=== PATIENT | male | born 1960 | race Caucasian/White ===

== ENCOUNTER 2016-07-31 11:03 | Inpatient (IN) ==
[~2016-07-31 11:03] MED LIST: *HR* Etomidate 20 MG/10 ML AMPUL IVP ONE; *HR* Rocuronium Bromide 100 MG/10 ML VIAL IVC ONE
[2016-07-31] MEDS ORDERED: Propofol 500 MG/50 ML INFUS..BTL ONE (11:12)
[2016-07-31] MEDS ORDERED: Levofloxacin 750 MG/150 ML 750 MG/150 ML BAG IVPB ONE (11:14)
[2016-07-31] MEDS ORDERED: methylPREDNISolone 125 MG/2 ML VIAL IV ONE (11:16)
[2016-07-31] MEDS ORDERED: Ipratropium/Albuterol Neb 3 ML IH ONE (11:16)
--- NOTE | 2016-07-31 11:20 | Emergency Department Note ---
Disposition Clinical Impression: Respiratory distress, COPD exacerbation, History of drug use Pneumonia Qualifiers: Pneumonia type: due to unspecified organism Laterality: left Lung location: lower lobe of lung Qualified Code(s): J18.9 - Pneumonia, unspecified organism Sepsis Qualifiers: Sepsis type: sepsis due to unspecified organism Qualified Code(s): A41.9 - Sepsis, unspecified organism Disposition: Admitted As Inpatient Condition: Serious Time of Disposition: 11:20 General Adult HPI - General Chief complaint: ED Shortness of Breath/Dyspnea Stated complaint: resp distress Time Seen by Provider: 07/31/16 11:06 Nursing Notes Reviewed: Yes Vital Signs Reviewed: Yes - History of Present Illness HPI Narrative: Patient presents with respiratory distress and unresponsive requiring intubation in the ED. - Related Data Home Medications Medication Instructions Recorded Confirmed Albuterol Sulfate [Proair Hfa] 2 puff IH Q4H PRN 07/31/16 07/31/16 Alprazolam [Xanax 1 MG Tablet] 1 mg PO TID 07/31/16 07/31/16 Amlodipine [Norvasc] 10 mg PO DAILY 07/31/16 07/31/16 Beclomethasone Diprop 40mcg [Qvar 1 puff IH BID 07/31/16 07/31/16 40 mcg] Gabapentin [Neurontin] 800 mg PO Q6H 07/31/16 07/31/16 Ibuprofen [Motrin] 400 mg PO BID 07/31/16 07/31/16 Ipratropium/Albuterol Neb [Duoneb] 3 ml IH Q6HR 07/31/16 07/31/16 Metoprolol XL (24 HR) Succ [Toprol 75 mg PO DAILY 07/31/16 07/31/16 XL] Omeprazole [PriLOSEC] 40 mg PO DAILY 07/31/16 07/31/16 Oxycodone HCl/Acetaminophen 1 tab PO Q6H PRN 07/31/16 07/31/16 [Percocet 10-325 mg Tablet] Roflumilast [Daliresp] 500 mcg PO DAILY 07/31/16 07/31/16 Sildenafil Citrate [Viagra] 50 - 100 mg PO AD PRN 07/31/16 07/31/16 Simvastatin [Zocor] 40 mg PO QPM 01/14/17 01/14/17 Allergies Allergy/AdvReac Type Severity Reaction Status Date / Time codeine AdvReac Itching Verified 05/26/16 17:44 Past Medical History - Past Medical History Medical history: Reports: hypertension Surgical history: Reports: other Psychiatric history: Reports: anxiety, depression - Social History Smoking Status: Never smoker Smokeless Tobacco Status: No Alcohol use: Reports: none Drug use: Reports: none Course Vital Signs Temperature 97.9 F 07/31/16 11:17 Pulse Rate 138 07/31/16 11:17 Respiratory Rate 16 07/31/16 11:17 Blood Pressure 152/119 07/31/16 11:17 O2 Sat by Pulse Oximetry 94 L 07/31/16 11:17 Temperature 97.5 F L 07/31/16 15:39 Pulse Rate 105 07/31/16 16:06 Respiratory Rate 20 07/31/16 16:06 Blood Pressure 84/70 07/31/16 16:06 O2 Sat by Pulse Oximetry 100 07/31/16 16:06 Oxygen Delivery Oxygen Delivery Ventilator Procedures - Intubation Time out performed: Yes sedative: Etomidate Mg Given: 20 paralytic: Rocuronium Mg Given: 70 Laryngoscope: Malcolm ET Tube Size: 7.5 ET Tube Uncuffed: No Tube Secured Depth (cm): 24 Tube Secured Location: lips Patient Tolerated Procedure: well, no complications Intubation Complications: none Additional Comments: Mallampati of 3. micrognathia Medical Decision Making - [facility] Narrative Medical decision making narrative: Mr. Young was brought into the emergency department unresponsive and in respiratory distress. Patient had a very low GCS requiring intubation. I performed intubation. This is a procedure note - Lab Data Result diagrams: 07/31/16 11:20 07/31/16 11:20 Lab Results 07/31/16 07/31/16 07/31/16 Range/Units 11:20 11:20 11:20 WBC 13.8 H (4.3-11.1) K/mcL RBC 4.45 (4.19-5.50) M/mcL Hgb 14.8 (12.9-16.9) g/dL Hct 44.4 (37.5-50.1) % MCV 99.8 (83.0-100.0) fL MCH 33.3 (28.0-33.3) pg MCHC 33.3 (31.6-35.5) g/dL RDW 11.9 (11.5-14.5) % Plt Count 291 (140-400) K/mcL MPV 8.7 L (9.4-12.4) fL Immature Gran % 0.4 (0-4) % Seg Neutrophils % 33.7 % Lymphocytes % 49.1 % Monocytes % 8.0 % Eosinophils % 7.9 % Basophils % 0.9 % Neutrophils # 4.6 (1.6-8.9) K/mcL Lymphocytes # 6.8 H (0.6-4.6) K/mcL Monocytes # 1.1 (0.0-1.3) K/mcL Eosinophils # 1.1 H (0.0-0.6) K/mcL Basophils # 0.1 (0.0-0.2) K/mcL PT 10.4 (9.4-12.1) Seconds INR 1.0 APTT 30.1 (26.0-36.0) Seconds ABG pH (7.32-7.45) pH Units ABG pCO2 (35-45) mmHg ABG pO2 (85-104) mmHg ABG HCO3 (21-27) mEQ/L ABG Total CO2 (20-26) mEq/L ABG O2 Saturation (95-98) % ABG Base Excess (-2.0 to 3.0) mEq/L Blood Gas Modality Inspired O2 % Sodium 141 (136-145) mEq/L Potassium 4.1 (3.5-4.5) mEq/L Chloride 108 (98-109) mEq/L Carbon Dioxide 26 (19-29) mEq/L BUN 9 (8-26) mg/dL Creatinine 1.26 H (0.72-1.25) mg/dL Est GFR ( Amer) > 60 (> 60) Est GFR (Non-Af Amer) 60 (> 60) BUN/Creatinine Ratio 7 (6-26) Glucose 258 H (70-99) mg/dL POC Glucose (58-89) Calculated Osmolality 300 (280-300) Lactic Acid (0.5-2.2) mmol/L Calcium 8.3 L (8.6-10.8) mg/dL Phosphorus 7.1 H (2.3-4.7) mg/dL Magnesium 2.7 H (1.6-2.6) mg/dL Total Bilirubin 0.5 (0.2-1.2) mg/dL Direct Bilirubin 0.2 (0.0-0.5) mg/dL Indirect Bilirubin 0.3 (0.0-1.2) mg/dL AST 13 (5-34) Units/L ALT 10 (0-55) Units/L Alkaline Phosphatase 61 (38-126) Units/L Troponin I (0-0.03) ng/mL B-Natriuretic Peptide (0-100) pg/mL Serum Total Protein 6.4 (6.0-8.3) g/dL Albumin 3.5 (3.5-5.0) g/dL Globulin 2.9 (2.4-3.5) g/dL Albumin/Globulin Ratio 1.2 (1.1-2.2) Urine Color (Yellow) Urine Clarity (Clear) Urine pH (5.0-8.0) pH Units Ur Specific Simon (1.010-1.025) Urine Protein (Neg-Trace) mg/dL Urine Glucose (UA) (Normal) mg/dL Urine Ketones (Negative) mg/dL Urine Blood (Negative) Urine Nitrite (Negative) Urine Bilirubin (Negative) Urine Urobilinogen (Normal) mg/dL Ur Leukocyte Esterase (Negative) Ur Culture Indicated? (NO) 07/31/16 07/31/16 07/31/16 Range/Units 11:20 11:20 11:22 WBC (4.3-11.1) K/mcL RBC (4.19-5.50) M/mcL Hgb (12.9-16.9) g/dL Hct (37.5-50.1) % MCV (83.0-100.0) fL MCH (28.0-33.3) pg MCHC (31.6-35.5) g/dL RDW (11.5-14.5) % Plt Count (140-400) K/mcL MPV (9.4-12.4) fL Immature Gran % (0-4) % Seg Neutrophils % % Lymphocytes % % Monocytes % % Eosinophils % % Basophils % % Neutrophils # (1.6-8.9) K/mcL Lymphocytes # (0.6-4.6) K/mcL Monocytes # (0.0-1.3) K/mcL Eosinophils # (0.0-0.6) K/mcL Basophils # (0.0-0.2) K/mcL PT (9.4-12.1) Seconds INR APTT (26.0-36.0) Seconds ABG pH (7.32-7.45) pH Units ABG pCO2 (35-45) mmHg ABG pO2 (85-104) mmHg ABG HCO3 (21-27) mEQ/L ABG Total CO2 (20-26) mEq/L ABG O2 Saturation (95-98) % ABG Base Excess (-2.0 to 3.0) mEq/L Blood Gas Modality Inspired O2 % Sodium (136-145) mEq/L Potassium (3.5-4.5) mEq/L Chloride (98-109) mEq/L Carbon Dioxide (19-29) mEq/L BUN (8-26) mg/dL Creatinine (0.72-1.25) mg/dL Est GFR ( Amer) (> 60) Est GFR (Non-Af Amer) (> 60) BUN/Creatinine Ratio (6-26) Glucose (70-99) mg/dL POC Glucose (58-89) Calculated Osmolality (280-300) Lactic Acid 3.0 H (0.5-2.2) mmol/L Calcium (8.6-10.8) mg/dL Phosphorus (2.3-4.7) mg/dL Magnesium (1.6-2.6) mg/dL Total Bilirubin (0.2-1.2) mg/dL Direct Bilirubin (0.0-0.5) mg/dL Indirect Bilirubin (0.0-1.2) mg/dL AST (5-34) Units/L ALT (0-55) Units/L Alkaline Phosphatase (38-126) Units/L Troponin I 0.03 (0-0.03) ng/mL B-Natriuretic Peptide 247 H (0-100) pg/mL Serum Total Protein (6.0-8.3) g/dL Albumin (3.5-5.0) g/dL Globulin (2.4-3.5) g/dL Albumin/Globulin Ratio (1.1-2.2) Urine Color (Yellow) Urine Clarity (Clear) Urine pH (5.0-8.0) pH Units Ur Specific Simon (1.010-1.025) Urine Protein (Neg-Trace) mg/dL Urine Glucose (UA) (Normal) mg/dL Urine Ketones (Negative) mg/dL Urine Blood (Negative) Urine Nitrite (Negative) Urine Bilirubin (Negative) Urine Urobilinogen (Normal) mg/dL Ur Leukocyte Esterase (Negative) Ur Culture Indicated? (NO) 07/31/16 07/31/16 07/31/16 Range/Units 11:25 12:00 12:20 WBC (4.3-11.1) K/mcL RBC (4.19-5.50) M/mcL Hgb (12.9-16.9) g/dL Hct (37.5-50.1) % MCV (83.0-100.0) fL MCH (28.0-33.3) pg MCHC (31.6-35.5) g/dL RDW (11.5-14.5) % Plt Count (140-400) K/mcL MPV (9.4-12.4) fL Immature Gran % (0-4) % Seg Neutrophils % % Lymphocytes % % Monocytes % % Eosinophils % % Basophils % % Neutrophils # (1.6-8.9) K/mcL Lymphocytes # (0.6-4.6) K/mcL Monocytes # (0.0-1.3) K/mcL Eosinophils # (0.0-0.6) K/mcL Basophils # (0.0-0.2) K/mcL PT (9.4-12.1) Seconds INR APTT (26.0-36.0) Seconds ABG pH 7.09 L* 7.16 L* (7.32-7.45) pH Units ABG pCO2 92 H* 75 H* (35-45) mmHg ABG pO2 350 H 303 H (85-104) mmHg ABG HCO3 27.9 H 26.7 (21-27) mEQ/L ABG Total CO2 30.7 H 29.0 H (20-26) mEq/L ABG O2 Saturation 100 H 100 H (95-98) % ABG Base Excess -4.5 L -3.3 L (-2.0 to 3.0) mEq/L Blood Gas Modality ASSIST CONTROL VENT Inspired O2 70 70 % Sodium (136-145) mEq/L Potassium (3.5-4.5) mEq/L Chloride (98-109) mEq/L Carbon Dioxide (19-29) mEq/L BUN (8-26) mg/dL Creatinine (0.72-1.25) mg/dL Est GFR ( Amer) (> 60) Est GFR (Non-Af Amer) (> 60) BUN/Creatinine Ratio (6-26) Glucose (70-99) mg/dL POC Glucose (58-89) Calculated Osmolality (280-300) Lactic Acid (0.5-2.2) mmol/L Calcium (8.6-10.8) mg/dL Phosphorus (2.3-4.7) mg/dL Magnesium (1.6-2.6) mg/dL Total Bilirubin (0.2-1.2) mg/dL Direct Bilirubin (0.0-0.5) mg/dL Indirect Bilirubin (0.0-1.2) mg/dL AST (5-34) Units/L ALT (0-55) Units/L Alkaline Phosphatase (38-126) Units/L Troponin I (0-0.03) ng/mL B-Natriuretic Peptide (0-100) pg/mL Serum Total Protein (6.0-8.3) g/dL Albumin (3.5-5.0) g/dL Globulin (2.4-3.5) g/dL Albumin/Globulin Ratio (1.1-2.2) Urine Color Yellow (Yellow) Urine Clarity Clear (Clear) Urine pH 7.0 (5.0-8.0) pH Units Ur Specific Simon 1.010 (1.010-1.025) Urine Protein Negative (Neg-Trace) mg/dL Urine Glucose (UA) Normal (Normal) mg/dL Urine Ketones Negative (Negative) mg/dL Urine Blood Negative (Negative) Urine Nitrite Negative (Negative) Urine Bilirubin Negative (Negative) Urine Urobilinogen Normal (Normal) mg/dL Ur Leukocyte Esterase Negative (Negative) Ur Culture Indicated? NO (NO) 07/31/16 07/31/16 07/31/16 Range/Units 13:25 13:56 14:44 WBC (4.3-11.1) K/mcL RBC (4.19-5.50) M/mcL Hgb (12.9-16.9) g/dL Hct (37.5-50.1) % MCV (83.0-100.0) fL MCH (28.0-33.3) pg MCHC (31.6-35.5) g/dL RDW (11.5-14.5) % Plt Count (140-400) K/mcL MPV (9.4-12.4) fL Immature Gran % (0-4) % Seg Neutrophils % % Lymphocytes % % Monocytes % % Eosinophils % % Basophils % % Neutrophils # (1.6-8.9) K/mcL Lymphocytes # (0.6-4.6) K/mcL Monocytes # (0.0-1.3) K/mcL Eosinophils # (0.0-0.6) K/mcL Basophils # (0.0-0.2) K/mcL PT (9.4-12.1) Seconds INR APTT (26.0-36.0) Seconds ABG pH 7.27 L (7.32-7.45) pH Units ABG pCO2 51 H D (35-45) mmHg ABG pO2 141 H (85-104) mmHg ABG HCO3 23.4 (21-27) mEQ/L ABG Total CO2 25.0 (20-26) mEq/L ABG O2 Saturation 99 H (95-98) % ABG Base Excess -4.0 L (-2.0 to 3.0) mEq/L Blood Gas Modality ASSIST CONTROL Inspired O2 30 % Sodium (136-145) mEq/L Potassium (3.5-4.5) mEq/L Chloride (98-109) mEq/L Carbon Dioxide (19-29) mEq/L BUN (8-26) mg/dL Creatinine (0.72-1.25) mg/dL Est GFR ( Amer) (> 60) Est GFR (Non-Af Amer) (> 60) BUN/Creatinine Ratio (6-26) Glucose (70-99) mg/dL POC Glucose 157 H (58-89) Calculated Osmolality (280-300) Lactic Acid 1.2 (0.5-2.2) mmol/L Calcium (8.6-10.8) mg/dL Phosphorus (2.3-4.7) mg/dL Magnesium (1.6-2.6) mg/dL Total Bilirubin (0.2-1.2) mg/dL Direct Bilirubin (0.0-0.5) mg/dL Indirect Bilirubin (0.0-1.2) mg/dL AST (5-34) Units/L ALT (0-55) Units/L Alkaline Phosphatase (38-126) Units/L Troponin I (0-0.03) ng/mL B-Natriuretic Peptide (0-100) pg/mL Serum Total Protein (6.0-8.3) g/dL Albumin (3.5-5.0) g/dL Globulin (2.4-3.5) g/dL Albumin/Globulin Ratio (1.1-2.2) Urine Color (Yellow) Urine Clarity (Clear) Urine pH (5.0-8.0) pH Units Ur Specific Simon (1.010-1.025) Urine Protein (Neg-Trace) mg/dL Urine Glucose (UA) (Normal) mg/dL Urine Ketones (Negative) mg/dL Urine Blood (Negative) Urine Nitrite (Negative) Urine Bilirubin (Negative) Urine Urobilinogen (Normal) mg/dL Ur Leukocyte Esterase (Negative) Ur Culture Indicated? (NO) Attestation Statement - Attestation Attestation: I examined this patient and my medical decision-making was reviewed with the ENGAGEMENT LIAISON/PA/Advanced Practice Nurse/Resident Physician. I agree with the documented findings, disposition and treatment plan as described except to the extent set forth below. Patient presents to the emergency department with respiratory distress. History is provided per EMS. They state they were called for difficulty in breathing. They found her with altered mental status breathing rapidly and wheezing. He was given a nebulizer treatment in route had an IV placed. On arrival here he is altered. Minimally combative waving his arms as were trying to place IVs and examined him. Lungs with diffuse expiratory wheezing. Satting in the low 90s on a nebulizer treatment. Abdomen soft. No obvious signs of trauma. Plan. The patient was in respiratory distress with altered mental status. He was intubated by Dr. Diaz. We will perform septic workup. CT head and chest pending. Admit to ICU.
--- NOTE | 2016-07-31 11:21 | Emergency Department Note ---
Disposition Clinical Impression: Respiratory distress, COPD exacerbation, History of drug use Sepsis Qualifiers: Sepsis type: sepsis due to unspecified organism Qualified Code(s): A41.9 - Sepsis, unspecified organism Pneumonia Qualifiers: Pneumonia type: due to unspecified organism Laterality: left Lung location: lower lobe of lung Qualified Code(s): J18.9 - Pneumonia, unspecified organism Disposition: Admitted As Inpatient Condition: Serious SOB HPI - General Chief Complaint: ED Shortness of Breath/Dyspnea Stated Complaint: resp distress Time Seen by Provider: 07/31/16 11:06 Source: patient, EMS Mode of arrival: EMS Limitations: altered mental status Nursing Notes Reviewed: Yes Vital Signs Reviewed: Yes - History of Present Illness 55-year-old male history of COPD presents for evaluation respiratory distress. Patient presented via EMS. EMS reported the patient has been hypoxic at home. Patient's also had decreased responsiveness. Report was that the patient's been having increasing shortness of breath overnight. Constantly using his albuterol. Patient's GCS was low and concerning for airway protection. Patient was not responsive to verbal or painful stimuli. Patient's pupils were fixed and dilated. - Related Data Home Medications Medication Instructions Recorded Confirmed Albuterol Sulfate [Proair Hfa] 2 puff IH Q4H PRN 07/31/16 07/31/16 Alprazolam [Xanax 1 MG Tablet] 1 mg PO TID 07/31/16 07/31/16 Amlodipine [Norvasc] 10 mg PO DAILY 07/31/16 07/31/16 Beclomethasone Diprop 40mcg [Qvar 1 puff IH BID 07/31/16 07/31/16 40 mcg] Gabapentin [Neurontin] 800 mg PO Q6H 07/31/16 07/31/16 Ibuprofen [Motrin] 400 mg PO BID 07/31/16 07/31/16 Ipratropium/Albuterol Neb [Duoneb] 3 ml IH Q6HR 07/31/16 07/31/16 Metoprolol XL (24 HR) Succ [Toprol 75 mg PO DAILY 07/31/16 07/31/16 XL] Omeprazole [PriLOSEC] 40 mg PO DAILY 07/31/16 07/31/16 Oxycodone HCl/Acetaminophen 1 tab PO Q6H PRN 07/31/16 07/31/16 [Percocet 10-325 mg Tablet] Roflumilast [Daliresp] 500 mcg PO DAILY 07/31/16 07/31/16 Sildenafil Citrate [Viagra] 50 - 100 mg PO AD PRN 07/31/16 07/31/16 Simvastatin [Zocor] 40 mg PO QPM 07/31/16 07/31/16 Allergies Allergy/AdvReac Type Severity Reaction Status Date / Time codeine AdvReac Itching Verified 05/26/16 17:44 Limitations: ROS unobtainable due to patients medical condition Past Medical History - Past Medical History Medical history: Reports: hypertension Surgical history: Reports: other Psychiatric history: Reports: anxiety, depression - Social History Smoking Status: Never smoker Smokeless Tobacco Status: No Alcohol use: Reports: none Drug use: Reports: none Physical Exam - General Limitations: other General appearance: lethargic, in distress, other (Decreased responsiveness) - Head Head exam: normocephalic, normal inspection - Eye Eye exam: Present: normal appearance, mydriasis (fixed) - ENT ENT exam: normal exam, mucous membranes moist - Neck Neck exam: Present: normal inspection, trachea midline - Chest Chest inspection: Present: normal inspection, symmetric chest wall rise, other ( Tachypnea). Absent: tenderness - Respiratory Respiratory exam: Present: respiratory distress, accessory muscle use, other ( Decreased right-sided breath sounds with bilateral diffuse rhonchi) - Cardiovascular Cardiovascular exam: Present: normal rhythm, tachycardia, +S1, +S2 - Abdominal Exam Abdominal exam: Present: soft, Non-Tender. Absent: distention, guarding, rebound - Extremities Exam Extremities exam: Present: normal inspection. Absent: pedal edema - Expanded Upper Extremity Exam Shoulder exam: Present: normal inspection Arm exam: Present: normal inspection Elbow exam: Present: normal inspection Forearm/Wrist exam: Present: normal inspection Hand exam: Present: normal inspection Vascular exam: Normal: capillary refill, radial pulse - Expanded Lower Extremity Exam Knee exam: Present: normal inspection Lower leg exam: Present: normal inspection Ankle exam: Present: normal inspection Foot/toe exam: Present: normal inspection - Back Exam Back exam: Present: normal inspection - Neurological Exam Neurological exam: Present: other (Decreased responsiveness, moving all extremities. ) - Skin Skin exam: Present: warm, intact, normal color, diaphoresis Course Course Narrative: Patient seen and examined. Patient presents with respiratory distress. Patient 's GCS is low concerning for airway protection. Possible aspiration. Patient does have a history of COPD. Family not at bedside to provide additional history. Patient was intubated concerns of airway protection. Intubation was performed by Dr. Diaz. Patient's concerning history for sepsis likely source of infection the lungs. Patient's hypertensive and tachycardic. Postintubation meds include propofol sedation. Bedside ultrasound shows a moderately dilated right ventricle. With no gross wall motion abnormalities. - Reevaluation(s) Reevaluation #1: Spoke with the patient's brother. Patient's brother states that he does have a history of COPD not on any oxygen at home. Notes that he has been having difficulty with breathing in the past. But denies any recent hospitalizations. States that he does take extensive pain medications. Of note, was noted the patient had benzodiazepines prescribed in his pocket. Time: 11:46 Reevaluation #2: Patient's lab work shows an elevated white count with lactic acid. Patient is awake with escalating doses of propofol. will address with versed. Time: 12:20 Reevaluation #3: Patient's sister at bedside. Patient's sister is power of commercial real estate attorney. States that he went to urgent care approximately a week ago with concerns of problems breathing. Unclear if the patient had any antibiotics prescribed at that time. Due to family on plan of care. All questions were answered. Time: 12:35 Additional Reevaluation(s): 1242: Patient's repeat ABG shows improving acidosis with a CO2 of 75. Would likely increase the patient's TV to 500. 1408: Patient CTA of the chest reviewed after the patient was already in route to ICU. Vital Signs Respiratory Rate 16 07/31/16 11:09 Blood Pressure 131/103 07/31/16 11:09 O2 Sat by Pulse Oximetry 132 H 07/31/16 11:09 Temperature 97.5 F L 07/31/16 15:39 Pulse Rate 106 07/31/16 17:53 Respiratory Rate 18 07/31/16 17:53 Blood Pressure 97/78 07/31/16 17:53 O2 Sat by Pulse Oximetry 100 07/31/16 17:53 Oxygen Delivery Oxygen Delivery Ventilator Shortness of Breath/Dyspnea - MDM Narrative Medical decision making narrative: 55-year-old male presents via EMS for concerns of decreased responsiveness, altered mental status, history of COPD and hypoxia. Was found at his home with his sister. Sister called EMS. Patient was found hypoxic on room air with saturations 80%. Patient's oxygenation improved with [id number] via EMS. Patient was given albuterol nebs via EMS. Due to the concern of patient's decreased mental status and airway protection. The patient was intubated in the emergency department. Intubation was performed by Dr. Diaz. Differential diagnosis initially was pneumonia, COPD exacerbation, PE, ACS. No specific history prior to the event was able to be obtained at bedside. Family arrived later on appeared to be more distant relationship with the patient. Family has been battling breathing issues over the past week. States that he was using his albuterol more more recently. Patient's also found to have Adipex in a pill bottle. Patient's found to be tachycardic and hypertensive likely related to medications and infection. Patient did have an elevated lactate with leukocytosis concerns for sepsis and sepsis protocol was ordered with IV fluid hydration, antibiotics, cultures. Possible source of infection the lungs. Postintubation sedation cannot be completely achieved with propofol initially and was needed versed and fentanyl. At the patient does have an extensive drug history with chronic pain management as well as benzodiazepines. This information was confirmed by the patient bedside. CTA of the chest as well as a head CT was ordered due to the patient's declining mental status. - Lab Data Lab results reviewed: Yes I reviewed the patient's lab results. Result diagrams: 07/31/16 11:20 07/31/16 11:20 Lab Results 07/31/16 07/31/16 07/31/16 Range/Units 11:20 11:20 11:20 WBC 13.8 H (4.3-11.1) K/mcL RBC 4.45 (4.19-5.50) M/mcL Hgb 14.8 (12.9-16.9) g/dL Hct 44.4 (37.5-50.1) % MCV 99.8 (83.0-100.0) fL MCH 33.3 (28.0-33.3) pg MCHC 33.3 (31.6-35.5) g/dL RDW 11.9 (11.5-14.5) % Plt Count 291 (140-400) K/mcL MPV 8.7 L (9.4-12.4) fL Immature Gran % 0.4 (0-4) % Seg Neutrophils % 33.7 % Lymphocytes % 49.1 % Monocytes % 8.0 % Eosinophils % 7.9 % Basophils % 0.9 % Neutrophils # 4.6 (1.6-8.9) K/mcL Lymphocytes # 6.8 H (0.6-4.6) K/mcL Monocytes # 1.1 (0.0-1.3) K/mcL Eosinophils # 1.1 H (0.0-0.6) K/mcL Basophils # 0.1 (0.0-0.2) K/mcL PT 10.4 (9.4-12.1) Seconds INR 1.0 APTT 30.1 (26.0-36.0) Seconds ABG pH (7.32-7.45) pH Units ABG pCO2 (35-45) mmHg ABG pO2 (85-104) mmHg ABG HCO3 (21-27) mEQ/L ABG Total CO2 (20-26) mEq/L ABG O2 Saturation (95-98) % ABG Base Excess (-2.0 to 3.0) mEq/L Blood Gas Modality Inspired O2 % Sodium 141 (136-145) mEq/L Potassium 4.1 (3.5-4.5) mEq/L Chloride 108 (98-109) mEq/L Carbon Dioxide 26 (19-29) mEq/L BUN 9 (8-26) mg/dL Creatinine 1.26 H (0.72-1.25) mg/dL Est GFR ( Amer) > 60 (> 60) Est GFR (Non-Af Amer) 60 (> 60) BUN/Creatinine Ratio 7 (6-26) Glucose 258 H (70-99) mg/dL Calculated Osmolality 300 (280-300) Lactic Acid (0.5-2.2) mmol/L Calcium 8.3 L (8.6-10.8) mg/dL Phosphorus 7.1 H (2.3-4.7) mg/dL Magnesium 2.7 H (1.6-2.6) mg/dL Total Bilirubin 0.5 (0.2-1.2) mg/dL Direct Bilirubin 0.2 (0.0-0.5) mg/dL Indirect Bilirubin 0.3 (0.0-1.2) mg/dL AST 13 (5-34) Units/L ALT 10 (0-55) Units/L Alkaline Phosphatase 61 (38-126) Units/L Troponin I (0-0.03) ng/mL B-Natriuretic Peptide (0-100) pg/mL Serum Total Protein 6.4 (6.0-8.3) g/dL Albumin 3.5 (3.5-5.0) g/dL Globulin 2.9 (2.4-3.5) g/dL Albumin/Globulin Ratio 1.2 (1.1-2.2) Urine Color (Yellow) Urine Clarity (Clear) Urine pH (5.0-8.0) pH Units Ur Specific [place] (1.010-1.025) Urine Protein (Neg-Trace) mg/dL Urine Glucose (UA) (Normal) mg/dL Urine Ketones (Negative) mg/dL Urine Blood (Negative) Urine Nitrite (Negative) Urine Bilirubin (Negative) Urine Urobilinogen (Normal) mg/dL Ur Leukocyte Esterase (Negative) Ur Culture Indicated? (NO) 07/31/16 07/31/16 07/31/16 Range/Units 11:20 11:20 11:22 WBC (4.3-11.1) K/mcL RBC (4.19-5.50) M/mcL Hgb (12.9-16.9) g/dL Hct (37.5-50.1) % MCV (83.0-100.0) fL MCH (28.0-33.3) pg MCHC (31.6-35.5) g/dL RDW (11.5-14.5) % Plt Count (140-400) K/mcL MPV (9.4-12.4) fL Immature Gran % (0-4) % Seg Neutrophils % % Lymphocytes % % Monocytes % % Eosinophils % % Basophils % % Neutrophils # (1.6-8.9) K/mcL Lymphocytes # (0.6-4.6) K/mcL Monocytes # (0.0-1.3) K/mcL Eosinophils # (0.0-0.6) K/mcL Basophils # (0.0-0.2) K/mcL PT (9.4-12.1) Seconds INR APTT (26.0-36.0) Seconds ABG pH (7.32-7.45) pH Units ABG pCO2 (35-45) mmHg ABG pO2 (85-104) mmHg ABG HCO3 (21-27) mEQ/L ABG Total CO2 (20-26) mEq/L ABG O2 Saturation (95-98) % ABG Base Excess (-2.0 to 3.0) mEq/L Blood Gas Modality Inspired O2 % Sodium (136-145) mEq/L Potassium (3.5-4.5) mEq/L Chloride (98-109) mEq/L Carbon Dioxide (19-29) mEq/L BUN (8-26) mg/dL Creatinine (0.72-1.25) mg/dL Est GFR ( Amer) (> 60) Est GFR (Non-Af Amer) (> 60) BUN/Creatinine Ratio (6-26) Glucose (70-99) mg/dL Calculated Osmolality (280-300) Lactic Acid 3.0 H (0.5-2.2) mmol/L Calcium (8.6-10.8) mg/dL Phosphorus (2.3-4.7) mg/dL Magnesium (1.6-2.6) mg/dL Total Bilirubin (0.2-1.2) mg/dL Direct Bilirubin (0.0-0.5) mg/dL Indirect Bilirubin (0.0-1.2) mg/dL AST (5-34) Units/L ALT (0-55) Units/L Alkaline Phosphatase (38-126) Units/L Troponin I 0.03 (0-0.03) ng/mL B-Natriuretic Peptide 247 H (0-100) pg/mL Serum Total Protein (6.0-8.3) g/dL Albumin (3.5-5.0) g/dL Globulin (2.4-3.5) g/dL Albumin/Globulin Ratio (1.1-2.2) Urine Color (Yellow) Urine Clarity (Clear) Urine pH (5.0-8.0) pH Units Ur Specific [place] (1.010-1.025) Urine Protein (Neg-Trace) mg/dL Urine Glucose (UA) (Normal) mg/dL Urine Ketones (Negative) mg/dL Urine Blood (Negative) Urine Nitrite (Negative) Urine Bilirubin (Negative) Urine Urobilinogen (Normal) mg/dL Ur Leukocyte Esterase (Negative) Ur Culture Indicated? (NO) 07/31/16 07/31/16 07/31/16 Range/Units 11:25 12:00 12:20 WBC (4.3-11.1) K/mcL RBC (4.19-5.50) M/mcL Hgb (12.9-16.9) g/dL Hct (37.5-50.1) % MCV (83.0-100.0) fL MCH (28.0-33.3) pg MCHC (31.6-35.5) g/dL RDW (11.5-14.5) % Plt Count (140-400) K/mcL MPV (9.4-12.4) fL Immature Gran % (0-4) % Seg Neutrophils % % Lymphocytes % % Monocytes % % Eosinophils % % Basophils % % Neutrophils # (1.6-8.9) K/mcL Lymphocytes # (0.6-4.6) K/mcL Monocytes # (0.0-1.3) K/mcL Eosinophils # (0.0-0.6) K/mcL Basophils # (0.0-0.2) K/mcL PT (9.4-12.1) Seconds INR APTT (26.0-36.0) Seconds ABG pH 7.09 L* 7.16 L* (7.32-7.45) pH Units ABG pCO2 92 H* 75 H* (35-45) mmHg ABG pO2 350 H 303 H (85-104) mmHg ABG HCO3 27.9 H 26.7 (21-27) mEQ/L ABG Total CO2 30.7 H 29.0 H (20-26) mEq/L ABG O2 Saturation 100 H 100 H (95-98) % ABG Base Excess -4.5 L -3.3 L (-2.0 to 3.0) mEq/L Blood Gas Modality ASSIST CONTROL VENT Inspired O2 70 70 % Sodium (136-145) mEq/L Potassium (3.5-4.5) mEq/L Chloride (98-109) mEq/L Carbon Dioxide (19-29) mEq/L BUN (8-26) mg/dL Creatinine (0.72-1.25) mg/dL Est GFR ( Amer) (> 60) Est GFR (Non-Af Amer) (> 60) BUN/Creatinine Ratio (6-26) Glucose (70-99) mg/dL Calculated Osmolality (280-300) Lactic Acid (0.5-2.2) mmol/L Calcium (8.6-10.8) mg/dL Phosphorus (2.3-4.7) mg/dL Magnesium (1.6-2.6) mg/dL Total Bilirubin (0.2-1.2) mg/dL Direct Bilirubin (0.0-0.5) mg/dL Indirect Bilirubin (0.0-1.2) mg/dL AST (5-34) Units/L ALT (0-55) Units/L Alkaline Phosphatase (38-126) Units/L Troponin I (0-0.03) ng/mL B-Natriuretic Peptide (0-100) pg/mL Serum Total Protein (6.0-8.3) g/dL Albumin (3.5-5.0) g/dL Globulin (2.4-3.5) g/dL Albumin/Globulin Ratio (1.1-2.2) Urine Color Yellow (Yellow) Urine Clarity Clear (Clear) Urine pH 7.0 (5.0-8.0) pH Units Ur Specific [place] 1.010 (1.010-1.025) Urine Protein Negative (Neg-Trace) mg/dL Urine Glucose (UA) Normal (Normal) mg/dL Urine Ketones Negative (Negative) mg/dL Urine Blood Negative (Negative) Urine Nitrite Negative (Negative) Urine Bilirubin Negative (Negative) Urine Urobilinogen Normal (Normal) mg/dL Ur Leukocyte Esterase Negative (Negative) Ur Culture Indicated? NO (NO) - Radiology Data Radiology results reviewed: Yes I reviewed the patient's radiology results. - EKG Data EKG attestation: Yes I reviewed and interpreted this EKG. EKG shows normal: Reports: sinus rhythm Rate: Reports: normal Rhythm: Reports: NSR [place]/QRS: Reports: normal When compared to previous EKG there are: changes noted (Tachycardia from 2015) Interpretation: Reports: nonspecific ST-T wave changes Critical Care Time Critical Care Time: Yes Total Critical Care Time: 40 Attestation: Critical care performed: Time is exclusive of separately billable procedures. Time includes: direct patient care, patient reassessment, coordination of patient care, interpretation of data (laboratory data, radiology data, and respiratory data), review of patient's medical records, medical consultation and documentation of patient care. Procedures included in critical care time: Procedures excluded from critical care time: Karen - Karen Situation: Demographics, MOA Background: Presenting Complaint Assessment: Vital Signs, Patient/Family Expectation Recommendation: Barrier(s) to disposition, Recommendation based on pending studies, treatments, or consults Karen Report Given to: Dr. Conor Jones Repor Time: 13:03
[2016-07-31] MEDS ORDERED: Propofol 500 MG/50 ML INFUS..BTL IVC SCH (11:30)
[2016-07-31 11:31] LABS: ABG Base Excess -4.5 mEq/L (-2.0 to 3.0); ABG HCO3 27.9 mEQ/L (21-27); ABG Oxygen Saturation 100 % (95-98); ABG PO2 350 mmHg (85-104); ABG TCO2 30.7 mEq/L (20-26)
[2016-07-31 11:32] LABS: Basophils # 0.1 K/mcL (0.0-0.2); Basophils % 0.9 %; Eosinophils # 1.1 K/mcL (0.0-0.6); Eosinophils % 7.9 %; Hematocrit 44.4 % (37.5-50.1); Hemoglobin 14.8 g/dL (12.9-16.9); Immature Granulocytes % 0.4 % (0-4); Lymphocytes # 6.8 K/mcL (0.6-4.6); Lymphocytes % 49.1 %; Mean Corpuscular HGB Conc 33.3 g/dL (31.6-35.5); Mean Corpuscular Hemoglobin 33.3 pg (28.0-33.3); Mean Corpuscular Volume 99.8 fL (83.0-100.0); Mean Platelet Volume 8.7 fL (9.4-12.4); Monocytes # 1.1 K/mcL (0.0-1.3); Neutrophils # 4.6 K/mcL (1.6-8.9); Platelet Count 291 K/mcL (140-400); Red Blood Count 4.45 M/mcL (4.19-5.50); Red Cell Distribution Width 11.9 % (11.5-14.5); Segmented Neutrophils % 33.7 %
[2016-07-31 11:35] LABS: ABG PCO2 92 mmHg (35-45); ABG PH 7.09 pH Units (7.32-7.45)
[2016-07-31 11:36] LABS: Blood Gas FiO2 70 %
[2016-07-31] MEDS: 0.9 % Sodium Chloride 1,000 ML IVC SCH ×2 (11:37→11:46)
[2016-07-31 11:42] LABS: Prothrombin Time 10.4 Seconds (9.4-12.1)
[2016-07-31 11:44] LABS: Activated Partial Thrombo Time 30.1 Seconds (26.0-36.0)
[2016-07-31 11:46] LABS: Alanine Aminotransferase 10 Units/L (0-55); Albumin 3.5 g/dL (3.5-5.0); Albumin/Globulin Ratio 1.2 (1.1-2.2); Alkaline Phosphatase 61 Units/L (38-126); Aspartate Amino Transferase 13 Units/L (5-34); BUN/Creatinine Ratio 7 (6-26); Bilirubin,Direct 0.2 mg/dL (0.0-0.5); Bilirubin,Indirect 0.3 mg/dL (0.0-1.2); Bilirubin,Total 0.5 mg/dL (0.2-1.2); Blood Urea Nitrogen 9 mg/dL (8-26); Calcium 8.3 mg/dL (8.6-10.8); Carbon Dioxide 26 mEq/L (19-29); Chloride 108 mEq/L (98-109); Globulin 2.9 g/dL (2.4-3.5); Glucose 258 mg/dL (70-99); Magnesium 2.7 mg/dL (1.6-2.6); Osmolality,Calculated 300 (280-300); Phosphorous 7.1 mg/dL (2.3-4.7); Potassium 4.1 mEq/L (3.5-4.5); Sodium 141 mEq/L (136-145); Total Protein 6.4 g/dL (6.0-8.3); eGFR For African Americans > 60 (> 60); eGFR For Non-African Americans 60 (> 60)
[2016-07-31] MEDS ORDERED: *HR* FentaNYL (PF) 100 MCG/2 ML VIAL IVP ONE (12:01)
[2016-07-31 12:14] LABS: Bilirubin,Urine Negative (Negative); Blood,Urine Negative (Negative); Clarity,Urine Clear (Clear); Color,Urine Yellow (Yellow); Glucose,Urine (UA) Normal (Normal); Ketones,Urine Negative (Negative); Leukocyte Esterase,Urine Negative (Negative); Nitrite,Urine Negative (Negative); Protein,Urine Negative (Neg-Trace); Urobilinogen,Urine Normal (Normal)
[2016-07-31] MEDS ORDERED: *HR* Vecuronium 10 MG VIAL IVP ONE (12:20)
[2016-07-31] MEDS ORDERED: *HR* Midazolam HCl 2 MG/2 ML VIAL IVP ONE (12:20)
[2016-07-31] MEDS ORDERED: *HR* Midazolam HCl 2 MG/2 ML VIAL ONE (12:26)
[2016-07-31 12:35] LABS: ABG Base Excess -3.3 mEq/L (-2.0 to 3.0); ABG HCO3 26.7 mEQ/L (21-27); ABG Oxygen Saturation 100 % (95-98); ABG PO2 303 mmHg (85-104)
[2016-07-31 12:36] LABS: Blood Gas FiO2 70 %
[2016-07-31 12:37] LABS: ABG PCO2 75 mmHg (35-45); ABG PH 7.16 pH Units (7.32-7.45)
[2016-07-31] MEDS ORDERED: 0.9 % Sodium Chloride 1,000 ML IV ONE (13:17)
[2016-07-31] MEDS ORDERED: Acetaminophen 325 MG TABLET PO PRN (14:05)
[2016-07-31] MEDS ORDERED: Naloxone 0.4 MG/ML INJ IVP PRN (14:05)
[2016-07-31] MEDS ORDERED: Ipratropium/Albuterol Neb 3 ML ONE (14:06)
[2016-07-31] MEDS ORDERED: Ipratropium/Albuterol Neb 3 ML IH SCH ×2 (14:15→16:00)
[2016-07-31] MEDS ORDERED: Ringers Solution, Lactated 1,000 ML IVC ONE (14:16)
--- NOTE | 2016-07-31 14:54 | Pulmonology History & Physical ---
Date of Encounter: 07/31/16 Time of Encounter: 14:51 Assessment and Plan (1) Acute respiratory failure with hypoxia and hypercapnia Current visit: Yes Status: Acute I spent 40min of Critical Care time with this patient. It involved decision making of high complexity to assess, manipulate, and support vital organ system failure and/or to prevent further life threatening deterioration of the patient' s condition. The time involved in the performance of separately reportable procedures was not counted toward critical care time. Neuropsych: Presented with altered mental status likely secondary to CO2 narcosis from respiratory failure from COPD exacerbation now intubated sedated for vent management goal RASS (-4); chronic narcotic use/abuse per family. currently on Fentanyl and Propofol Pulm: Acute hypoxic hypercapnic respiratory failure s/t to COPD exacerbation likely triggered by PNA. CTPE (-) for VTE but dose show several areas of GGOs concerning for infectious process. Vent adjusted for low tidal volume strategy with increased I;E ratio for improved ventilation to avoid autoPEEP. Deep sedation to improve ventilator synchrony. Acceptable O2 sat on minimal FIo2 (40 %) goal Spo2 around 90%/ Agreesive bronchodilators and IV steroids Cards: ECG without STEMI trop wnl. BNP elevation but not volume overloaded on exam. May need ECHO to assess for CHF but not acutely. FEN-GI: NPO for now; GI prophylaxis started Renal: No DANIEL. Marlow placed while on vent. Daily RFP ID: Sepsis likely secondary to community-acquired pneumonia (cannot exclude influenza) blood and sputum and urine cultures pending along with respiratory infectious panel pending. ABx (Ceftriaxone and Azithro started) Lactate within normal limits fluid has been given monitor urine output fluid challenges with crystalloid as needed to maintain MAP greater than 65. Thus far in ICU BP quite stable. Heme/Onc: H/H Stable. DVT prophy with heparin Endo: glucose monitored; SSi as needed for goal 140-180 Integ/MSK: skin care per ICU protocol to prevent ulcers CODE: Full; family (older brother and sister) updated at bedside (2) Community acquired pneumonia Current visit: Yes Status: Acute (3) COPD exacerbation Current visit: Yes Status: Acute (4) Sepsis Current visit: Yes Status: Acute Qualifiers: Sepsis type: sepsis due to unspecified organism Qualified Code(s): A41.9 - Sepsis, unspecified organism (5) Altered mental state Current visit: Yes Status: Acute Qualifiers: Altered mental status type: stupor Qualified Code(s): R40.1 - Stupor (6) DVT prophylaxis Current visit: Yes Status: Acute History of Present Illness Chief complaint: Shortness of Breath HPI: Mr. Young is a 55 year old male who presented to the emergency department for increasing shortness of breath and hypoxemia. On admission to the emergency department patient was audibly wheezing had altered mental status was quickly intubated for hypoxic hypercapnic respiratory failure. CT PE was done at the time of admission which was negative for acute pulmonary embolism did show some evidence of acute pneumonia. At this visit with the clinical history of this family members were provided him feeling ill for several days with increasing bronchodilator usage. He was given bronchodilators and steroids and antibiotics in the emergency department and sent to ICU for further management He has a history of severe underlying obstructive lung disease for which he is had to undergo intubation in the past with a couple of exacerbations. 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 Per the family patient has never smoked but he has been electrocuted in the past accidentally on a job site and since that time he has had difficulty with obstructive lung disease clear the history is not entirely known except for some outpatient records which show that he does not fact have a severe obstructive A deficit as by PFTs with a strong bronchodilator response. He is followed up with pulmonary in the past but has been seen in many years Past Med Surg Social Fam HX - Past Medical History Medical history: COPD, hypertension Psychiatric history: anxiety, depression - Past Surgical History Surgical History: other - Social History Smoking Status: Never smoker Smokeless Tobacco Status: No Alcohol use: heavy Drug use: opiates, marijuana, prescription drug abuse - Family History Brother Family Member Ethnicity: Non- Living Status: Still Living Hx Family Respiratory Disorders: Yes Medications and Allergies Albuterol Sulfate [Proair Hfa] 2 puff IH Q4H PRN 07/31/16 [History] Alprazolam [Xanax 1 MG Tablet] 1 mg PO TID 07/31/16 [History] Amlodipine [Norvasc] 10 mg PO DAILY 07/31/16 [History] Beclomethasone Diprop 40mcg [Qvar 40 mcg] 1 puff IH BID 07/31/16 [History] Gabapentin [Neurontin] 800 mg PO Q6H 07/31/16 [History] Ibuprofen [Motrin] 400 mg PO BID 07/31/16 [History] Ipratropium/Albuterol Neb [Duoneb] 3 ml IH Q6HR 07/31/16 [History] Metoprolol XL (24 HR) Succ [Toprol XL] 75 mg PO DAILY 07/31/16 [History] Omeprazole [PriLOSEC] 40 mg PO DAILY 07/31/16 [History] Oxycodone HCl/Acetaminophen [Percocet 10-325 mg Tablet] 1 tab PO Q6H PRN [History] Roflumilast [Daliresp] 500 mcg PO DAILY 07/31/16 [History] Sildenafil Citrate [Viagra] 50 - 100 mg PO AD PRN 07/31/16 [History] Simvastatin [Zocor] 40 mg PO QPM 07/31/16 [History] Allergies codeine Adverse Reaction (Verified 05/26/16 17:44) Itching All Systems: A 10-system review of systems was performed and is negative for pertinent findings except as documented above in the HPI. Physical Examination Vital Signs: Vital Signs, Last 4 Hours Temp Resp BP 07/31/16 13:39 98.0 F 16 121/92 General appearance: no acute distress, other (Sedated for ventilator) Eyes: nonicteric ENT: other (Endotracheal tube noted) Neck: supple, no lymphadenopathy Effort: normal Inspection: other (Appears hyperinflated) Auscultation: bilateral: diminished breath sounds, wheezes Cardiovascular: other (Rapid rate but regular rhythm) Gastrointestinal: normoactive bowel sounds, soft, tender Integumentary: normal Extremities: no edema Musculoskeletal: no deformities pupils equal and round (Patient is noted to move all extremities spontaneously deeply sedated for respiratory failure so unable to do complete neurological examination) other (Sedated) Results - Laboratory Findings CBC and BMP: 07/31/16 11:20 07/31/16 11:20 ABG ABG pH 7.16 pH Units (7.32-7.45) L* 07/31/16 12:20 ABG pCO2 75 mmHg (35-45) H* 07/31/16 12:20 ABG pO2 303 mmHg (85-104) H 07/31/16 12:20 ABG O2 Saturation 100 % (95-98) H 07/31/16 12:20 PT/INR, D-dimer PT 10.4 Seconds (9.4-12.1) 07/31/16 11:20 Abnormal lab findings: Abnormal lab results WBC 13.8 K/mcL (4.3-11.1) H 07/31/16 11:20 MPV 8.7 fL (9.4-12.4) L 07/31/16 11:20 Lymphocytes # 6.8 K/mcL (0.6-4.6) H 07/31/16 11:20 Eosinophils # 1.1 K/mcL (0.0-0.6) H 07/31/16 11:20 ABG pH 7.16 pH Units (7.32-7.45) L* 07/31/16 12:20 ABG pCO2 75 mmHg (35-45) H* 07/31/16 12:20 ABG pO2 303 mmHg (85-104) H 07/31/16 12:20 ABG Total CO2 29.0 mEq/L (20-26) H 07/31/16 12:20 ABG O2 Saturation 100 % (95-98) H 07/31/16 12:20 ABG Base Excess -3.3 mEq/L (-2.0 to 3.0) L 07/31/16 12:20 Creatinine 1.26 mg/dL (0.72-1.25) H 07/31/16 11:20 Glucose 258 mg/dL (70-99) H 07/31/16 11:20 POC Glucose 157 (58-89) H 07/31/16 13:56 Calcium 8.3 mg/dL (8.6-10.8) L 07/31/16 11:20 Phosphorus 7.1 mg/dL (2.3-4.7) H 07/31/16 11:20 Magnesium 2.7 mg/dL (1.6-2.6) H 07/31/16 11:20 B-Natriuretic Peptide 247 pg/mL (0-100) H 07/31/16 11:22 - Diagnostic Findings Chest x-ray: report reviewed, image reviewed CT scan - chest: report reviewed, image reviewed Additional studies: CT head without acute process
[2016-07-31] MEDS: FentaNYL (PF) 1,000 MCG in 0.9 % Sodium Chloride 80 ML IVC SCH (14:57)
[2016-07-31 15:01] LABS: ABG HCO3 23.4 mEQ/L (21-27); ABG Oxygen Saturation 99 % (95-98); ABG PCO2 51 mmHg (35-45); ABG PH 7.27 pH Units (7.32-7.45); ABG PO2 141 mmHg (85-104)
[2016-07-31 15:05] LABS: Blood Gas FiO2 30 %
[2016-07-31] MEDS: Azithromycin 500 MG in D5% in Water 250 ML IVPB SCH (15:06)
[2016-07-31] MEDS: Pantoprazole 40 MG VIAL IVPB SCH (15:06)
[2016-07-31] MEDS: Ipratropium 1 PUFF INHALER IH SCH ×2 (15:47→19:39)
[2016-07-31] MEDS: methylPREDNISolone 125 MG/2 ML VIAL IVP SCH ×2 (17:57→23:37)
[2016-07-31] MEDS: *HR* Heparin 5,000 UNIT/ML VIAL SQ SCH (21:02)
[2016-07-31] MEDS: Sennosides 8.6 MG TABLET PO SCH (21:02)
[2016-07-31 22:03] LABS: ABG Base Excess 0.2 mEq/L (-2.0 to 3.0); ABG Oxygen Saturation 97 % (95-98); ABG PCO2 46 mmHg (35-45); ABG PH 7.36 pH Units (7.32-7.45); ABG PO2 91 mmHg (85-104); ABG TCO2 27.4 mEq/L (20-26); Blood Gas PEEP 0 cm H2O; Blood Gas VT 460 cc
[2016-07-31] MEDS: Albuterol 2.5 MG/3 ML NEBULIZER IH PRN (22:08)
[2016-08-01] MEDS: Ipratropium 1 PUFF INHALER IH SCH ×6 (00:29→20:51)
[2016-08-01] MEDS: FentaNYL (PF) 1,000 MCG in 0.9 % Sodium Chloride 80 ML IVC SCH ×3 (01:41→13:55)
[2016-08-01] MEDS: Albuterol 2.5 MG/3 ML NEBULIZER IH PRN ×3 (02:36→20:54)
[2016-08-01 03:40] LABS: Basophils % 0.1 %; Hemoglobin 13.6 g/dL (12.9-16.9); Immature Granulocytes % 0.8 % (0-4); Lymphocytes # 0.7 K/mcL (0.6-4.6); Lymphocytes % 5.8 %; Mean Corpuscular HGB Conc 34.9 g/dL (31.6-35.5); Mean Corpuscular Hemoglobin 33.5 pg (28.0-33.3); Mean Corpuscular Volume 96.1 fL (83.0-100.0); Mean Platelet Volume 8.9 fL (9.4-12.4); Monocytes # 0.3 K/mcL (0.0-1.3); Monocytes % 2.8 %; Neutrophils # 10.6 K/mcL (1.6-8.9); Platelet Count 201 K/mcL (140-400); Red Blood Count 4.06 M/mcL (4.19-5.50); Red Cell Distribution Width 11.9 % (11.5-14.5); Segmented Neutrophils % 90.5 %
[2016-08-01 03:43] LABS: INR 1.1; Prothrombin Time 11.5 Seconds (9.4-12.1)
[2016-08-01 03:50] LABS: Alanine Aminotransferase 14 Units/L (0-55); Albumin 3.1 g/dL (3.5-5.0); Albumin/Globulin Ratio 1.1 (1.1-2.2); Alkaline Phosphatase 54 Units/L (38-126); Aspartate Amino Transferase 16 Units/L (5-34); BUN/Creatinine Ratio 10 (6-26); Bilirubin,Total 0.3 mg/dL (0.2-1.2); Blood Urea Nitrogen 11 mg/dL (8-26); Calcium 8.4 mg/dL (8.6-10.8); Carbon Dioxide 21 mEq/L (19-29); Chloride 108 mEq/L (98-109); Globulin 2.8 g/dL (2.4-3.5); Glucose 227 mg/dL (70-99); Magnesium 1.8 mg/dL (1.6-2.6); Osmolality,Calculated 297 (280-300); Potassium 4.1 mEq/L (3.5-4.5); Sodium 140 mEq/L (136-145); Total Protein 5.9 g/dL (6.0-8.3); eGFR For African Americans > 60 (> 60); eGFR For Non-African Americans > 60 (> 60)
[2016-08-01 04:48] LABS: ABG Base Excess 2.1 mEq/L (-2.0 to 3.0); ABG HCO3 27.3 mEQ/L (21-27); ABG Oxygen Saturation 93 % (95-98); ABG PCO2 44 mmHg (35-45); ABG PO2 67 mmHg (85-104); ABG TCO2 28.7 mEq/L (20-26); Blood Gas PEEP 0 cm H2O; Blood Gas VT 460 cc
[2016-08-01] MEDS: methylPREDNISolone 125 MG/2 ML VIAL IVP SCH ×4 (05:35→23:18)
[2016-08-01] MEDS: *HR* Heparin 5,000 UNIT/ML VIAL SQ SCH ×3 (05:35→20:59)
[2016-08-01] MEDS ORDERED: *HR* Midazolam HCl 2 MG/2 ML VIAL IVP ONE (05:52)
[2016-08-01] MEDS ORDERED: *HR* Midazolam HCl 2 MG/2 ML VIAL ONE (05:55)
--- NOTE | 2016-08-01 06:40 | Pulmonology Progress Note ---
Date of Encounter: 08/01/16 Time of Encounter: 06:40 Assessment and Plan (1) Acute respiratory failure with hypoxia and hypercapnia Current Visit: Yes Status: Acute I spent 35min of Critical Care time with this patient. It involved decision making of high complexity to assess, manipulate, and support vital organ system failure and/or to prevent further life threatening deterioration of the patient' s condition. The time involved in the performance of separately reportable procedures was not counted toward critical care time. Neuropsych: Presented with altered mental status likely secondary to CO2 narcosis from respiratory failure. Now follows commands but clearly is anxoius and has difficulty understanding and performing all tasks appropriatly possib ly relarted to sedation and anxiety or less likely aphasia. Repeat head CT without acute or subacute process. given statin and ASA. may need MRI/Neuro consult based upon clinical course. Clinically without motor/sensory deficit. Restart low dose benzo. Pulm: Acute hypoxic hypercapnic respiratory failure s/t to COPD exacerbation likely triggered by PNA. CTPE (-) for VTE. Liberated from vent today. Cont BDs steroids and ABx. Cards: ECG without STEMI trop wnl. BNP elevation but not volume overloaded on exam. Non urgent ECHO to assess for CHF . FEN-GI: ADAT after bedside swallow eval. Renal: No DANIEL. ok to remove lee ID: Sepsis likely secondary to community-acquired pneumonia blood and sputum and urine cultures pending. Cont ABx (Ceftriaxone and Azithro started) Lactate elevated likely s/t Type 2 process (?BDs) MAP and UOP appropriate Heme/Onc: H/H Stable. DVT prophy with heparin Endo: glucose monitored; SSi as needed for goal 140-180 Integ/MSK: skin care per ICU protocol to prevent ulcers CODE: Full; family (older brother and sister) updated at bedside (2) Community acquired pneumonia Current Visit: Yes Status: Acute (3) COPD exacerbation Current Visit: Yes Status: Acute (4) Sepsis Current Visit: Yes Status: Acute Qualifiers: Sepsis type: sepsis due to unspecified organism Qualified Code(s): A41.9 - Sepsis, unspecified organism (5) Altered mental state Current Visit: Yes Status: Acute Qualifiers: Altered mental status type: stupor Qualified Code(s): R40.1 - Stupor (6) DVT prophylaxis Current Visit: Yes Status: Acute Subjective Principal diagnosis: COPD exacerbation Interval history: Successfully liberated off ventilator Has had some residual anxiety and communication/understanding issues after extubation. Head CT did not demonstrate any focal process He says he is breathing much more comfortably now Objective PUL Vital signs: Last Vital Signs Temp 99.6 F 08/01/16 04:00 Pulse 102 08/01/16 04:00 Resp 20 08/01/16 06:13 BP 89/61 08/01/16 06:13 Pulse Ox 93 L 08/01/16 06:13 General appearance: other (anxious appearing) Eyes: nonicteric Auscultation: bilateral: wheezes (faint wheezes today markedly improved ) Cardiovascular: regular rate and rhythm Gastrointestinal: normoactive bowel sounds Integumentary: normal Extremities: no edema Musculoskeletal: no deformities non-focal exam, pupils equal and round, CN II-XII normal, motor strength normal and symmetric anxious Ventilator Settings Ventilator Settings: Ventilator Settings, Last 8 Hours Ventilator Mode A/C Ventilator Mode VC+ Ventilator Mode A/C Ventilator Mode A/C Ventilator Mode A/C Ventilator Mode A/C Ventilator Tidal Volume 460 Setting Ventilator Tidal Volume 460 Setting Ventilator Tidal Volume 460 Setting Ventilator Tidal Volume 460 Setting Ventilator Tidal Volume 460 Setting Ventilator Tidal Volume 460 Setting Ventilator Tidal Volume 460 Setting Ventilator Respiratory Rate 16 Setting Ventilator Respiratory Rate 16 Setting Ventilator Respiratory Rate 16 Setting Ventilator Respiratory Rate 16 Setting Ventilator Respiratory Rate 16 Setting Ventilator Respiratory Rate 16 Setting Ventilator Respiratory Rate 16 Setting Actual Respiratory Rate 20 Actual Respiratory Rate 17 Actual Respiratory Rate 17 Actual Respiratory Rate 19 Actual Respiratory Rate 18 Actual Respiratory Rate 19 Positive End Expiratory 0 Pressure Positive End Expiratory 0 Pressure Positive End Expiratory 0 Pressure Positive End Expiratory 0 Pressure Positive End Expiratory 0 Pressure Positive End Expiratory 0 Pressure Positive End Expiratory 0 Pressure Peak Inspiratory Airway 16 Pressure Peak Inspiratory Airway 20 Pressure Peak Inspiratory Airway 17 Pressure Peak Inspiratory Airway 13 Pressure Peak Inspiratory Airway 18 Pressure Peak Inspiratory Airway 18 Pressure Results - Laboratory Findings CBC and BMP: 08/01/16 03:28 08/01/16 03:28 ABG ABG pH 7.40 pH Units (7.32-7.45) 08/01/16 03:40 ABG pCO2 44 mmHg (35-45) 08/01/16 03:40 ABG pO2 67 mmHg (85-104) L 08/01/16 03:40 ABG O2 Saturation 93 % (95-98) L 08/01/16 03:40 PT/INR, D-dimer PT 11.5 Seconds (9.4-12.1) 08/01/16 03:28 Abnormal lab findings: Abnormal lab results WBC 11.7 K/mcL (4.3-11.1) H 08/01/16 03:28 RBC 4.06 M/mcL (4.19-5.50) L 08/01/16 03:28 MCH 33.5 pg (28.0-33.3) H 08/01/16 03:28 MPV 8.9 fL (9.4-12.4) L 08/01/16 03:28 Neutrophils # 10.6 K/mcL (1.6-8.9) H 08/01/16 03:28 ABG pO2 67 mmHg (85-104) L 08/01/16 03:40 ABG HCO3 27.3 mEQ/L (21-27) H 08/01/16 03:40 ABG Total CO2 28.7 mEq/L (20-26) H 08/01/16 03:40 ABG O2 Saturation 93 % (95-98) L 08/01/16 03:40 Glucose 227 mg/dL (70-99) H 08/01/16 03:28 POC Glucose 177 (58-89) H 07/31/16 23:45 Lactic Acid 3.3 mmol/L (0.5-2.2) H 08/01/16 03:28 Calcium 8.4 mg/dL (8.6-10.8) L 08/01/16 03:28 Phosphorus 7.1 mg/dL (2.3-4.7) H 07/31/16 11:20 B-Natriuretic Peptide 247 pg/mL (0-100) H 07/31/16 11:22 Serum Total Protein 5.9 g/dL (6.0-8.3) L 08/01/16 03:28 Albumin 3.1 g/dL (3.5-5.0) L 08/01/16 03:28 - Microbiology Findings Microbiology Findings: Microbiology, Last 48 Hours 08/01/16 01:40 Sputum Culture - Preliminary Sputum - Clinical Findings Intake & Output: Intake & Output 07/31/16 07/31/16 08/01/16 15:59 23:59 07:59 Intake Total 150 / 2165 550 / 550 300 / 300 Output Total 375 / 375 225 / 225 575 / 575 Balance -225 / 1790 325 / 325 -275 / -275 Weight 81.647 kg 85 kg Consult Discharge Plan - Plan Referrals: Tal Braden MD [Primary Care Provider] -
[2016-08-01] MEDS ORDERED: Dexmedetomidine HCl 400 MCG/100 ML MLS IVC SCH (07:30)
[2016-08-01] MEDS: Pantoprazole 40 MG VIAL IVPB SCH (07:57)
[2016-08-01] MEDS: *HR* LORazepam 2 MG/ML VIAL IVP PRN ×2 (07:57→14:38)
[2016-08-01] MEDS: Azithromycin 500 MG in D5% in Water 250 ML IVPB SCH (14:32)
--- NOTE | 2016-08-01 14:49 | Electrocardiograph Report ---
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
[2016-08-01 15:03] LABS: Chol/HDL Ratio 4.3 (0-4.9); Cholesterol 180 mg/dL (< 200); HDL Cholesterol 42 mg/dL (40-59); LDL Cholesterol,Calculated 121 mg/dL (0-99); Triglycerides 87 mg/dL (< 150)
[2016-08-01] MEDS: Aspirin 81 MG TAB.CHEW PO SCH (15:39)
[2016-08-01] MEDS: Budesonide/Formoterol 160/4.5 MDI IH SCH ×2 (16:54→20:54)
[2016-08-01] MEDS: Tiotropium 18 MCG inhalation IH SCH (16:54)
[2016-08-01] MEDS: Sennosides 8.6 MG TABLET PO SCH (20:59)
[2016-08-02] MEDS: Ipratropium 1 PUFF INHALER IH SCH ×3 (00:36→08:00)
[2016-08-02] MEDS: Albuterol 2.5 MG/3 ML NEBULIZER IH PRN ×3 (00:38→08:01)
[2016-08-02] MEDS: *HR* Heparin 5,000 UNIT/ML VIAL SQ SCH ×3 (05:11→20:12)
[2016-08-02] MEDS: methylPREDNISolone 125 MG/2 ML VIAL IVP SCH ×2 (05:12→12:08)
[2016-08-02 07:35] LABS: Adenovirus Not Detected (Not Detect); Bordetella Pertussis Not Detected (Not Detect); Chlamydophila pneumoniae Not Detected (Not Detect); Coronavirus 229E Not Detected (Not Detect); Coronavirus HKU1 Not Detected (Not Detect); Coronavirus NL63 Not Detected (Not Detect); Coronavirus OC43 ***DETECTED*** (Not Detect); Human Metapneumovirus Not Detected (Not Detect); Human Rhinovirus/Enterovirus Not Detected (Not Detect); Influenza A Subtype 2009 H1 Not Detected (Not Detect); Influenza A Untypeable Not Detected (Not Detect); Influenza B Not Detected (Not Detect); Mycoplasma pneumoniae Not Detected (Not Detect); Parainfluenza Virus 1 Not Detected (Not Detect); Parainfluenza Virus 2 Not Detected (Not Detect); Parainfluenza Virus 3 Not Detected (Not Detect); Parainfluenza Virus 4 Not Detected (Not Detect); Respiratory Syncytial Virus Not Detected (Not Detect)
[2016-08-02] MEDS: Pantoprazole 40 MG VIAL IVPB SCH (07:54)
[2016-08-02] MEDS: Aspirin 81 MG TAB.CHEW PO SCH (07:54)
[2016-08-02] MEDS: Tiotropium 18 MCG inhalation IH SCH (08:02)
[2016-08-02] MEDS: Budesonide/Formoterol 160/4.5 MDI IH SCH ×2 (08:03→20:37)
--- NOTE | 2016-08-02 09:39 | Pulmonology Progress Note ---
Addendum entered and electronically signed by Ventura Morrell MD 08/02/16 15:20: The patient was seen and examined with the house staff. I agree with the resident note with the following addendum: 1. Acute respiratory failure with hypoxia and hypercapnia 2. COPD with acute exacerbation 3. Encephalopathy 55-year-old white male with a medical history significant for COPD who presented with acute hypercapnic and hypoxic respiratory failure. The patient was extubated 08/01/2015, and he has been stable from a respiratory standpoint - currently on room air. We will transition to enteral prednisone and recommend a two-week taper. Continue scheduled bronchodilators and home inhaler regimen. 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 Okay for transfer out of the medical intensive care unit. Original Note: Date of Encounter: 08/02/16 Time of Encounter: 09:37 Assessment and Plan (1) Acute respiratory failure with hypoxia and hypercapnia Current Visit: Yes Status: Acute Weaned from ventilator yesterday. Vitals stable, patient comfortable on room air. Transfer to [facility] floor. Likely secondary to community acquired pneumonia on chronic COPD. Continue breathing treatments, steroids, and azithromycin. Discontinue rocephin. (2) Community acquired pneumonia Current Visit: Yes Status: Acute CXR yesterday revealed minimal right basilar atelectasis. WBC trending down yesterday at 11.7 Continue azithromycin to 5 days. Discontinue rocephin. (3) COPD exacerbation Current Visit: Yes Status: Acute Continue per plan in assessment above (4) Sepsis Current Visit: Yes Status: Acute Resolved Qualifiers: Sepsis type: sepsis due to unspecified organism Qualified Code(s): A41.9 - Sepsis, unspecified organism (5) DVT prophylaxis Current Visit: Yes Status: Acute Heparin for dvt ppx Subjective Principal diagnosis: COPD exacerbation Interval history: Patient comfortable overnight without difficulty breathing. Reports very mild shortness of breath and mild anxiety. Denies fevers, chills, sweats, changes in vision or hearing, nausea, vomiting, chest pain, abdominal pain, changes in bowels or bladder, dysuria, weakness, or loss of sensation. Objective PUL Vital signs: Last Vital Signs Temp 98.4 F 08/02/16 07:25 Pulse 67 08/02/16 09:15 Resp 15 08/02/16 09:15 BP 86/54 08/02/16 06:00 Pulse Ox 93 L 08/02/16 08:04 General appearance: no acute distress, alert Eyes: nonicteric ENT: oropharynx moist Neck: supple, no JVD Effort: normal Auscultation: bilateral: clear, wheezes Cardiovascular: regular rate and rhythm Gastrointestinal: normoactive bowel sounds, soft, non-tender, non-distended Integumentary: normal Extremities: no cyanosis, no edema, pink and warm Musculoskeletal: no deformities Gait: normal posture normal mental status, non-focal exam, pupils equal and round, CN II-XII normal, motor strength normal and symmetric mood appropriate, affect normal Results - Laboratory Findings CBC and BMP: 08/02/16 10:42 08/02/16 10:42 ABG ABG pH 7.40 pH Units (7.32-7.45) 08/01/16 03:40 ABG pCO2 44 mmHg (35-45) 08/01/16 03:40 ABG pO2 67 mmHg (85-104) L 08/01/16 03:40 ABG O2 Saturation 93 % (95-98) L 08/01/16 03:40 PT/INR, D-dimer PT 11.5 Seconds (9.4-12.1) 08/01/16 03:28 Abnormal lab findings: Abnormal lab results WBC 11.7 K/mcL (4.3-11.1) H 08/01/16 03:28 RBC 4.06 M/mcL (4.19-5.50) L 08/01/16 03:28 MCH 33.5 pg (28.0-33.3) H 08/01/16 03:28 MPV 8.9 fL (9.4-12.4) L 08/01/16 03:28 Neutrophils # 10.6 K/mcL (1.6-8.9) H 08/01/16 03:28 ABG pO2 67 mmHg (85-104) L 08/01/16 03:40 ABG HCO3 27.3 mEQ/L (21-27) H 08/01/16 03:40 ABG Total CO2 28.7 mEq/L (20-26) H 08/01/16 03:40 ABG O2 Saturation 93 % (95-98) L 08/01/16 03:40 Glucose 227 mg/dL (70-99) H 08/01/16 03:28 POC Glucose 136 (58-89) H 08/01/16 23:45 Lactic Acid 3.3 mmol/L (0.5-2.2) H 08/01/16 03:28 Calcium 8.4 mg/dL (8.6-10.8) L 08/01/16 03:28 Phosphorus 7.1 mg/dL (2.3-4.7) H 07/31/16 11:20 B-Natriuretic Peptide 247 pg/mL (0-100) H 07/31/16 11:22 Serum Total Protein 5.9 g/dL (6.0-8.3) L 08/01/16 03:28 Albumin 3.1 g/dL (3.5-5.0) L 08/01/16 03:28 LDL Cholesterol, Calc 121 mg/dL (0-99) H 08/01/16 03:28 Coronavirus OC43 (PCR) DETECTED (Not Detect) A 08/02/16 05:52 - Microbiology Findings Microbiology Findings: Microbiology, Last 48 Hours 08/01/16 01:40 Sputum Culture - Preliminary Sputum - Clinical Findings Intake & Output: Intake & Output 08/01/16 08/02/16 08/02/16 23:59 07:59 15:59 Intake Total 100 / 100 100 / 100 Output Total 900 / 900 650 / 650 Balance -800 / -800 -550 / -550 Weight 77.746 kg Consult Discharge Plan - Plan Referrals: Tal Braden MD [Primary Care Provider] -
[2016-08-02 10:48] LABS: Basophils % 0.1 %; Hematocrit 38.5 % (37.5-50.1); Hemoglobin 13.4 g/dL (12.9-16.9); Immature Granulocytes % 0.8 % (0-4); Lymphocytes # 1.1 K/mcL (0.6-4.6); Lymphocytes % 8.3 %; Mean Corpuscular HGB Conc 34.8 g/dL (31.6-35.5); Mean Corpuscular Hemoglobin 33.6 pg (28.0-33.3); Mean Corpuscular Volume 96.5 fL (83.0-100.0); Mean Platelet Volume 8.9 fL (9.4-12.4); Monocytes # 0.7 K/mcL (0.0-1.3); Monocytes % 5.3 %; Neutrophils # 10.8 K/mcL (1.6-8.9); Platelet Count 184 K/mcL (140-400); Red Blood Count 3.99 M/mcL (4.19-5.50); Red Cell Distribution Width 11.9 % (11.5-14.5); Segmented Neutrophils % 85.5 %
[2016-08-02 11:02] LABS: BUN/Creatinine Ratio 19 (6-26); Blood Urea Nitrogen 18 mg/dL (8-26); Carbon Dioxide 25 mEq/L (19-29); Chloride 110 mEq/L (98-109); Glucose 163 mg/dL (70-99); Osmolality,Calculated 303 (280-300); Potassium 3.4 mEq/L (3.5-4.5); Sodium 144 mEq/L (136-145); eGFR For African Americans > 60 (> 60); eGFR For Non-African Americans > 60 (> 60)
[2016-08-02] MEDS ORDERED: Dextrose Gel 15 GM PO PRN ×4 (12:26→13:20)
[2016-08-02] MEDS ORDERED: D5% in Water 1,000 ML IV PRN ×2 (12:26→13:20)
[2016-08-02] MEDS ORDERED: *HR* Dextrose 50 % in Water (Syg) 50 ML SYRINGE IVP PRN ×2 (12:26→13:20)
[2016-08-02] MEDS ORDERED: Naloxone 0.4 MG/ML INJ IVP PRN (13:20)
[2016-08-02] MEDS ORDERED: Acetaminophen 325 MG TABLET PO PRN (13:20)
[2016-08-02] MEDS ORDERED: Albuterol 2.5 MG/3 ML NEBULIZER IH PRN (13:20)
[2016-08-02] MEDS ORDERED: *HR* LORazepam 2 MG/ML VIAL IVP PRN (13:20)
[2016-08-02] MEDS: Azithromycin 500 MG in D5% in Water 250 ML IVPB SCH (15:22)
[2016-08-02] MEDS ORDERED: predniSONE 20 MG TABLET PO SCH (17:00)
[2016-08-02] MEDS: Insulin LISPRO 300 UNITS/3 ML VIAL SQ SCH ×2 (17:42→23:21)
[2016-08-02] MEDS ORDERED: Insulin LISPRO 300 UNITS/3 ML VIAL SQ SCH (18:00)
[2016-08-02] MEDS: Beclomethasone 40mcg MDI IH SCH (20:38)
[2016-08-02] MEDS ORDERED: Sennosides 8.6 MG TABLET PO SCH (21:00)
[2016-08-03] MEDS: Insulin LISPRO 300 UNITS/3 ML VIAL SQ SCH ×2 (05:45→15:58)
[2016-08-03] MEDS: *HR* Heparin 5,000 UNIT/ML VIAL SQ SCH ×3 (05:47→22:22)
--- NOTE | 2016-08-03 06:38 | Pulmonology Progress Note ---
Date of Encounter: 08/03/16 Time of Encounter: 06:35 Assessment and Plan (1) Acute respiratory failure with hypoxia and hypercapnia Current Visit: Yes Status: Acute Vitals stable, patient comfortable on room air. Patient waiting on hospital bed for transfer out ICU. Likely secondary to URI with sylvester virus on exacerbation of chronic COPD. Continue with breathing treatments, oral steroids with taper, and azithromycin. (2) COPD exacerbation Current Visit: Yes Status: Acute Continue per plan in assessment above (3) Sepsis Current Visit: Yes Status: Resolved Resolved Qualifiers: Sepsis type: sepsis due to unspecified organism Qualified Code(s): A41.9 - Sepsis, unspecified organism (4) DVT prophylaxis Current Visit: Yes Status: Acute Heparin for dvt ppx Subjective Principal diagnosis: COPD exacerbation Interval history: Patient comfortable overnight without difficulty breathing, but reports chronic dry cough and occassional clear sputum since being extubated. Reports diarrhea. Patient reports his decreased sleeping habits have been consistent and nonbothersome since being electrocuted in 2006. Denies fevers, chills, sweats, changes in vision or hearing, nausea, vomiting, chest pain, abdominal pain, changes in bladder, dysuria, weakness, or loss of sensation. Objective PUL Vital signs: Last Vital Signs Temp 97.8 F 08/03/16 04:00 Pulse 68 08/03/16 04:00 Resp 18 08/03/16 04:00 BP 131/98 08/03/16 04:00 Pulse Ox 96 08/03/16 04:00 General appearance: no acute distress, alert Eyes: nonicteric ENT: oropharynx moist Neck: supple Effort: normal Auscultation: bilateral: wheezes, rhonchi (lower bilaterally) Cardiovascular: regular rate and rhythm Gastrointestinal: normoactive bowel sounds, soft, non-tender, non-distended Integumentary: normal Extremities: no cyanosis, no edema, pink and warm, pulses normal Musculoskeletal: no deformities Gait: normal posture normal mental status, pupils equal and round, CN II-XII normal, motor strength normal and symmetric mood appropriate, affect normal Results - Laboratory Findings CBC and BMP: 08/02/16 10:42 08/02/16 10:42 ABG ABG pH 7.40 pH Units (7.32-7.45) 08/01/16 03:40 ABG pCO2 44 mmHg (35-45) 08/01/16 03:40 ABG pO2 67 mmHg (85-104) L 08/01/16 03:40 ABG O2 Saturation 93 % (95-98) L 08/01/16 03:40 PT/INR, D-dimer PT 11.5 Seconds (9.4-12.1) 08/01/16 03:28 Abnormal lab findings: Abnormal lab results WBC 12.6 K/mcL (4.3-11.1) H 08/02/16 10:42 RBC 3.99 M/mcL (4.19-5.50) L 08/02/16 10:42 MCH 33.6 pg (28.0-33.3) H 08/02/16 10:42 MPV 8.9 fL (9.4-12.4) L 08/02/16 10:42 Neutrophils # 10.8 K/mcL (1.6-8.9) H 08/02/16 10:42 ABG pO2 67 mmHg (85-104) L 08/01/16 03:40 ABG HCO3 27.3 mEQ/L (21-27) H 08/01/16 03:40 ABG Total CO2 28.7 mEq/L (20-26) H 08/01/16 03:40 ABG O2 Saturation 93 % (95-98) L 08/01/16 03:40 Potassium 3.4 mEq/L (3.5-4.5) L 08/02/16 10:42 Chloride 110 mEq/L (98-109) H 08/02/16 10:42 Glucose 163 mg/dL (70-99) H 08/02/16 10:42 Calculated Osmolality 303 (280-300) H 08/02/16 10:42 Lactic Acid 3.3 mmol/L (0.5-2.2) H 08/01/16 03:28 Phosphorus 7.1 mg/dL (2.3-4.7) H 07/31/16 11:20 B-Natriuretic Peptide 247 pg/mL (0-100) H 07/31/16 11:22 Serum Total Protein 5.9 g/dL (6.0-8.3) L 08/01/16 03:28 Albumin 3.1 g/dL (3.5-5.0) L 08/01/16 03:28 LDL Cholesterol, Calc 121 mg/dL (0-99) H 08/01/16 03:28 Coronavirus OC43 (PCR) DETECTED (Not Detect) A 08/02/16 05:52 - Microbiology Findings Microbiology Findings: Microbiology, Last 48 Hours 08/01/16 01:40 Sputum Culture - Final Sputum - Clinical Findings Intake & Output: Intake & Output 08/02/16 08/02/16 08/03/16 15:59 23:59 07:59 Intake Total 240 / 240 250 / 250 200 / 200 Output Total 200 / 200 Balance 240 / 240 50 / 50 200 / 200 Weight 79.56 kg Consult Discharge Plan - Plan Referrals: Tal Braden MD [Primary Care Provider] -
[2016-08-03 07:17] LABS: Basophils % 0.1 %; Hematocrit 40.7 % (37.5-50.1); Immature Granulocytes % 0.5 % (0-4); Lymphocytes # 2.5 K/mcL (0.6-4.6); Lymphocytes % 20.9 %; Mean Corpuscular HGB Conc 34.4 g/dL (31.6-35.5); Mean Corpuscular Hemoglobin 32.9 pg (28.0-33.3); Mean Corpuscular Volume 95.5 fL (83.0-100.0); Monocytes % 8.1 %; Neutrophils # 8.6 K/mcL (1.6-8.9); Platelet Count 198 K/mcL (140-400); Red Blood Count 4.26 M/mcL (4.19-5.50); Red Cell Distribution Width 11.9 % (11.5-14.5); Segmented Neutrophils % 70.4 %
[2016-08-03 07:26] LABS: BUN/Creatinine Ratio 23 (6-26); Blood Urea Nitrogen 20 mg/dL (8-26); Calcium 8.6 mg/dL (8.6-10.8); Carbon Dioxide 24 mEq/L (19-29); Chloride 110 mEq/L (98-109); Glucose 80 mg/dL (70-99); Osmolality,Calculated 300 (280-300); Potassium 3.5 mEq/L (3.5-4.5); Sodium 144 mEq/L (136-145); eGFR For African Americans > 60 (> 60); eGFR For Non-African Americans > 60 (> 60)
[2016-08-03] MEDS: Beclomethasone 40mcg MDI IH SCH (08:01)
[2016-08-03] MEDS: Budesonide/Formoterol 160/4.5 MDI IH SCH ×2 (08:01→19:47)
[2016-08-03] MEDS: Tiotropium 18 MCG inhalation IH SCH (08:01)
[2016-08-03] MEDS ORDERED: predniSONE 20 MG TABLET PO SCH ×2 (09:00)
[2016-08-03] MEDS: Metoprolol XL (24 HR) Succ 25 MG TAB.ER.24H PO SCH (09:23)
[2016-08-03] MEDS: predniSONE 20 MG TABLET PO SCH (09:23)
[2016-08-03] MEDS: amLODIPine 5 MG TABLET PO SCH (09:24)
[2016-08-03] MEDS: Aspirin 81 MG TAB.CHEW PO SCH (09:24)
[2016-08-03] MEDS: Azithromycin 500 MG in D5% in Water 250 ML IVPB SCH (16:07)
[2016-08-03] MEDS ORDERED: *HR* LORazepam 0.5 MG TABLET PO PRN (17:15)
[2016-08-04] MEDS: *HR* Heparin 5,000 UNIT/ML VIAL SQ SCH (05:03)
[2016-08-04 07:23] LABS: Basophils % 0.2 %; Eosinophils # 0.1 K/mcL (0.0-0.6); Eosinophils % 0.9 %; Hematocrit 49.3 % (37.5-50.1); Immature Granulocytes % 0.3 % (0-4); Lymphocytes # 3.7 K/mcL (0.6-4.6); Lymphocytes % 34.9 %; Mean Corpuscular HGB Conc 35.1 g/dL (31.6-35.5); Mean Corpuscular Hemoglobin 32.7 pg (28.0-33.3); Mean Corpuscular Volume 93.2 fL (83.0-100.0); Mean Platelet Volume 9.1 fL (9.4-12.4); Monocytes # 0.8 K/mcL (0.0-1.3); Monocytes % 7.2 %; Nucleated Red Blood Cells 0.4 /100 WBC (0); Platelet Count 246 K/mcL (140-400); Red Blood Count 5.29 M/mcL (4.19-5.50); Red Cell Distribution Width 11.8 % (11.5-14.5); Segmented Neutrophils % 56.5 %
[2016-08-04 07:24] LABS: Hemoglobin 17.3 g/dL (12.9-16.9)
[2016-08-04] MEDS: predniSONE 20 MG TABLET PO SCH (08:04)
[2016-08-04] MEDS: Metoprolol XL (24 HR) Succ 25 MG TAB.ER.24H PO SCH (08:04)
[2016-08-04] MEDS: Aspirin 81 MG TAB.CHEW PO SCH (08:04)
[2016-08-04] MEDS: amLODIPine 5 MG TABLET PO SCH (08:05)
[2016-08-04] MEDS ORDERED: Azithromycin 250 MG TABLET PO SCH (09:00)
[2016-08-04] MEDS: Tiotropium 18 MCG inhalation IH SCH (10:23)
[2016-08-04] MEDS: Budesonide/Formoterol 160/4.5 MDI IH SCH (10:23)
--- NOTE | 2016-08-04 11:49 | Discharge Summary ---
Date of Encounter: 08/04/16 Time of Encounter: 11:46 - Discharge Diagnosis (1) COPD exacerbation Priority: Primary Status: Acute (2) Acute respiratory failure with hypoxia and hypercapnia Priority: Primary Status: Acute (3) Essential hypertension Priority: Secondary Status: Chronic (4) Obstructive sleep apnea Priority: Secondary Status: Chronic - Discharge Medications Prescriptions: PredniSONE 40 mg PO DAILY 12 Days Home Medications: Albuterol Sulfate [Proair Hfa] 2 puff IH Q4H PRN 07/31/16 [History] Alprazolam [Xanax 1 MG Tablet] 1 mg PO TID 07/31/16 [History] Amlodipine [Norvasc] 10 mg PO DAILY 07/31/16 [History] Beclomethasone Diprop 40mcg [QVAR 40 mcg] 1 puff IH BID 07/31/16 [History] Gabapentin [Neurontin] 800 mg PO Q6H 07/31/16 [History] Ibuprofen [Motrin] 400 mg PO BID 07/31/16 [History] Ipratropium/Albuterol Neb [Duoneb] 3 ml IH Q6HR 07/31/16 [History] Metoprolol XL (24 HR) Succ [Toprol Xl] 75 mg PO DAILY 07/31/16 [History] Omeprazole [PriLOSEC] 40 mg PO DAILY 07/31/16 [History] Oxycodone HCl/Acetaminophen [Percocet 10-325 mg Tablet] 1 tab PO Q6H PRN [History] Roflumilast [Daliresp] 500 mcg PO DAILY 07/31/16 [History] Sildenafil Citrate [Viagra] 50 - 100 mg PO AD PRN 07/31/16 [History] Simvastatin [Zocor] 40 mg PO QPM 07/31/16 [History] PredniSONE 40 mg PO DAILY 12 Days 08/04/16 [Rx] Allergies/Adverse Reactions: Allergies codeine Adverse Reaction (Verified 05/26/16 17:44) Itching Procedures/tests Complete & Pending: Procedures Performed prior 72 hours Category Date Time Status CT head/brain wo con [CT] Stat Cat Scan 08/01/16 11:33 Completed EKG [ECG 12 lead ECG] [ECG] Stat Y 08/04/16 01:29 Completed Date of admission: 07/31/16 13:24 Primary care physician: Tal Braden MD Consults: 07/31/16 14:36 Consult to Physiognomist [CONS] Routine Reason for SW Consult: possible need for home 02 and drug rehab support Discharging clinician: Sisi Menchaca Anticipated date of discharge: 08/04/16 - Patient Status Disposition: Home, Self-Care Condition: Fair Functional capacity at discharge: independent ambulation Overall status at discharge: patient is progressing back to baseline - Discharge Instructions Instructions: Chronic Obstructive Pulmonary Disease (DC) Follow Up With: Tal Braden MD [Primary Care Provider] - 08/09/16 1:15 pm () Eligio Branham MD [Partnered Physician] - 08/19/16 3:30 pm - Diet and Activity Activity: resume usual activities as tolerated Diet: low fat, low cholesterol, low salt diet Hospital course: Mr. Young is a 55 year old male with history of chronic tobacco abuse, COPD was admitted with worsening shortness of breath and altered mental status. He was noted to be having an acute exacerbation of COPD with worsening respiratory failure and rapidly deteriorating mental status due to likely carbon dioxide narcosis. He underwent ET intubation in the emergency room and initially admitted to ICU. He was started on empiric IV antibiotics, IV steroids and bronchodilators. His respiratory status gradually improved and he was able to be weaned off ventilator and subsequently transferred to medical floor. He is currently asymptomatic and breathing much better on oral steroids. His antibiotics have been discontinued due to low suspicion for pneumonia. Blood cultures remain negative. Viral serology panel was positive for sylvester virus. Smoking cessation counseling has been done and he is encouraged to follow up in pulmonology clinic for possible BiPAP setup. - Time Spent with Patient Total time spent providing and/or coordinating discharge services: Greater than 30 minutes (45 min) - Constitutional Vitals: Temp Pulse Resp BP Pulse Ox 97.6 F 72 16 132/81 93 L 08/04/16 07:52 08/04/16 07:52 08/04/16 07:52 08/04/16 07:52 08/04/16 08:14 General appearance: Present: A&O X 3, answers questions appropriately - Respiratory Respiratory exam: Present: CTAB. Absent: accessory muscle use, rales, rhonchi, wheezes - Cardiovascular Cardiovascular exam: Present: RRR, +S1, +S2. Absent: diastolic murmur, gallop, rubs, systolic murmur
[2016-08-04 11:57] VITALS: BP 136/100
[2016-08-04] MEDS ORDERED: FLU VACC QS2016-17 36MOS UP/PF 0.5 ML SYRINGE IM ONE (12:15)
--- NOTE | 2016-08-04 13:34 | Electrocardiograph Report ---
[facility] Test Date: 2016-08-04 Pat Name: Ramy Young Department: 112 Room: 2A35 Gender: M [employer] Manager: : 1960 Requested By: Paulette Vega Order Number: [id number] Reading MD: Stephan De MD Measurements Intervals [place] Rate: 76 P: 52 [place]: 156 QRS: -19 QRSD: 88 T: 176 QT: 421 QTc: 451 Interpretive Statements SINUS RHYTHM LEFT ATRIAL ENLARGEMENT ANTEROLATERAL ISCHEMIA Electronically Signed On 08-04-16 13:32:20 EST by Stephan De MD
== END 2016-08-04 12:40 | disposition home or self-care (01) | DRG 871 ==
LOC: EMEROO 11:03 → SUATTDRO 13:24 → ICNU 13:24 → 2ANU 08-03 22:33
PROVIDERS: ADMIT Internal Medicine Hospice and Palliative Medicine; ATTEND Internal Medicine

== ENCOUNTER 2017-02-19 15:31 | Inpatient (IN) ==
[2017-02-19] MEDS ORDERED: methylPREDNISolone 125 MG/2 ML VIAL IVP ONE (15:38)
[2017-02-19] MEDS ORDERED: Albuterol 2.5 MG/3 ML NEBULIZER IH ONE (15:38)
--- NOTE | 2017-02-19 15:57 | Emergency Department Note ---
Disposition Clinical Impression: Acute exacerbation of chronic obstructive airways disease, Hypoxia, Acute respiratory failure with hypoxia and hypercapnia Disposition: Admitted As Inpatient Condition: Fair Time of Disposition: 17:38 SOB HPI - General Chief Complaint: ED Shortness of Breath/Dyspnea Stated Complaint: DONNA Time Seen by Provider: 02/19/17 15:38 Source: patient, family, EMS Limitations: no limitations - History of Present Illness Mr. Young is a 56-year-old male with past medical history COPD with acute respiratory distress requiring admission to the hospital on multiple occasions. He presents to the ED with a 4 day history of shortness of breath. Pt Subjective Complaint: shortness of breath Onset (ago): day(s) Severity: severe Consistency/Duration: gradually worsening Improves with: nothing Worsens with: nothing Known history of: COPD, asthma Associated symptoms: Reports: denies other symptoms Treatment prior to arrival: bronchodilator, other (Multiple Duoneb treatments.) Cough present: No - Related Data Home Medications Medication Instructions Recorded Confirmed ALPRAZolam [Xanax 1 MG Tablet] 1 mg PO TID 07/31/16 07/31/16 Albuterol Sulfate [Proair Hfa] 2 puff IH Q4H PRN 07/31/16 07/31/16 Beclomethasone Diprop 40mcg [QVAR 1 puff IH BID 07/31/16 07/31/16 40 mcg] Gabapentin [Neurontin] 800 mg PO Q6H 07/31/16 07/31/16 Ibuprofen [Motrin] 400 mg PO BID 07/31/16 07/31/16 Ipratropium/Albuterol Neb [Duoneb] 3 ml IH Q6HR 07/31/16 07/31/16 Metoprolol XL (24 HR) Succ [Toprol 75 mg PO DAILY 07/31/16 07/31/16 Xl] Omeprazole [PriLOSEC] 40 mg PO DAILY 07/31/16 07/31/16 Oxycodone HCl/Acetaminophen 1 tab PO Q6H PRN 07/31/16 07/31/16 [Percocet 10-325 mg Tablet] Roflumilast [Daliresp] 500 mcg PO DAILY 07/31/16 07/31/16 Sildenafil Citrate [Viagra] 50 - 100 mg PO AD PRN 07/31/16 07/31/16 Simvastatin [Zocor] 40 mg PO QPM 07/31/16 07/31/16 amLODIPine [Norvasc] 10 mg PO DAILY 07/31/16 07/31/16 Previous Rx's Medication Instructions Recorded predniSONE [PredniSONE] 40 mg PO DAILY 12 Days 08/04/16 PredniSONE [Deltasone] 60 mg PO DAILY #15 tablet 12/11/16 levoFLOXacin [Levaquin] 500 mg PO DAILY #7 tablet 12/11/16 Cephalexin [Keflex] 500 mg PO TID 5 Days 01/05/17 Ibuprofen [Motrin] 600 mg PO Q8HR PRN #30 tab 01/05/17 Allergies Allergy/AdvReac Type Severity Reaction Status Date / Time codeine AdvReac Itching Verified 05/26/16 17:44 All systems ED: reviewed and negative except as stated. Constitutional: Denies: fever, chills ENT ED: Reports: throat pain Cardiovascular: Reports: chest pain, palpitations, dyspnea on exertion, edema ( right LE). Denies: syncope Respiratory: Reports: cough, dyspnea, wheezes, stridor, sputum production. Denies: hemoptysis Gastrointestinal: Denies: abdominal pain, nausea, vomiting, diarrhea, hematemesis Neurological: Denies: headache Psychiatric: Reports: anxiety Past Medical History - Past Medical History Attestation: Yes The following information was validated with the patient. Medical history: Reports: COPD, hypertension Surgical history: Reports: other Psychiatric history: Reports: anxiety, depression - Social History Smoking Status: Former smoker Smokeless Tobacco Status: No Alcohol use: Reports: occasionally Drug use: Reports: none Physical Exam - General Limitations: no limitations General appearance: alert, in distress - Head Head exam: atraumatic, normocephalic - Neck Neck exam: Absent: lymphadenopathy - Respiratory Respiratory exam: Present: respiratory distress, wheezes, accessory muscle use, prolonged expiratory phase - Cardiovascular Cardiovascular exam: Present: tachycardia, irregular rhythm. Absent: systolic murmur, diastolic murmur - Abdominal Exam Abdominal exam: Present: soft, Non-Tender. Absent: distention, guarding, rebound - Extremities Exam Extremities exam: Present: pedal edema (Right sided.) - Expanded Lower Extremity Exam Lower leg exam: Present: swelling (Right sided LE edema.) - Neurological Exam Neurological exam: Present: alert, oriented X3 - Skin Skin exam: Present: diaphoresis Course Course Narrative: 56-year-old male with past medical history of COPD exacerbations requiring intubations in the past 4 day history of dyspnea. Patient states he has had a sore throat and felt like he was getting sick. Patient with tachycardia On admission. Will order labs: BMP BNP chest x-ray ABG lactic acid and blood cultures. Will give albuterol nebulizer treatments IV steroids and IV antibiotics. - Reevaluation(s) Reevaluation #1: Patient's ABG shows a respiratory acidosis with full metabolic compensation. Patient's ECG shows sinus tachycardia with PVCs which is different from his ECG on December 11. Patient's chest x-ray shows no acute abnormality. BNP and troponins negative. Patient to be admitted to medicine for hypoxia and an acute exacerbation COPD. Patient on BiPAP breathing much more comfortably. Vital Signs Temperature 98.1 F 02/19/17 15:33 Pulse Rate 106 02/19/17 15:33 Respiratory Rate 26 02/19/17 15:33 Blood Pressure 176/121 02/19/17 15:33 O2 Sat by Pulse Oximetry 99 02/19/17 15:33 Temperature 98.1 F 02/19/17 15:33 Pulse Rate 103 02/19/17 16:59 Respiratory Rate 22 02/19/17 16:59 Blood Pressure 163/102 02/19/17 16:59 O2 Sat by Pulse Oximetry 98 02/19/17 16:59 Oxygen Delivery Oxygen Delivery Room Air Shortness of Breath/Dyspnea - Medical Records Medical records reviewed: Yes I reviewed the patient's medical records. - Lab Data Lab results reviewed: Yes I reviewed the patient's lab results. Result diagrams: 02/19/17 15:59 02/19/17 15:59 Lab Results 02/19/17 02/19/17 02/19/17 Range/Units 15:59 15:59 15:59 WBC 5.8 (4.3-11.1) K/mcL RBC 4.51 (4.19-5.50) M/mcL Hgb 14.6 (12.9-16.9) g/dL Hct 44.3 (37.5-50.1) % MCV 98.2 (83.0-100.0) fL MCH 32.4 (28.0-33.3) pg MCHC 33.0 (31.6-35.5) g/dL RDW 13.5 (11.5-14.5) % Plt Count 237 (140-400) K/mcL MPV 8.5 L (9.4-12.4) fL Immature Gran % 0.2 (0-4) % Seg Neutrophils % 58.6 % Lymphocytes % 22.7 % Monocytes % 10.7 % Eosinophils % 7.3 % Basophils % 0.5 % Neutrophils # 3.4 (1.6-8.9) K/mcL Lymphocytes # 1.3 (0.6-4.6) K/mcL Monocytes # 0.6 (0.0-1.3) K/mcL Eosinophils # 0.4 (0.0-0.6) K/mcL Basophils # 0.0 (0.0-0.2) K/mcL PT (9.4-12.1) Seconds INR APTT (26.0-36.0) Seconds ABG pH (7.32-7.45) pH Units ABG pCO2 (35-45) mmHg ABG pO2 (85-104) mmHg ABG HCO3 (21-27) mEQ/L ABG Total CO2 (20-26) mEq/L ABG O2 Saturation (95-98) % ABG Base Excess (-2.0 to 3.0) mEq/L Blood Gas Modality Inspired O2 % Sodium 139 (136-145) mEq/L Potassium 4.3 (3.5-4.5) mEq/L Chloride 103 (98-109) mEq/L Carbon Dioxide 29 (19-29) mEq/L BUN 11 (8-26) mg/dL Creatinine 1.16 (0.72-1.25) mg/dL Est GFR ( Amer) > 60 (> 60) Est GFR (Non-Af Amer) > 60 (> 60) BUN/Creatinine Ratio 9 (6-26) Glucose 117 H (70-99) mg/dL Calculated Osmolality 288 (280-300) Lactic Acid 1.2 (0.5-2.2) mmol/L Calcium 8.9 (8.6-10.8) mg/dL Troponin I (0-0.03) ng/mL B-Natriuretic Peptide (0-100) pg/mL 02/19/17 02/19/17 02/19/17 Range/Units 15:59 15:59 15:59 WBC (4.3-11.1) K/mcL RBC (4.19-5.50) M/mcL Hgb (12.9-16.9) g/dL Hct (37.5-50.1) % MCV (83.0-100.0) fL MCH (28.0-33.3) pg MCHC (31.6-35.5) g/dL RDW (11.5-14.5) % Plt Count (140-400) K/mcL MPV (9.4-12.4) fL Immature Gran % (0-4) % Seg Neutrophils % % Lymphocytes % % Monocytes % % Eosinophils % % Basophils % % Neutrophils # (1.6-8.9) K/mcL Lymphocytes # (0.6-4.6) K/mcL Monocytes # (0.0-1.3) K/mcL Eosinophils # (0.0-0.6) K/mcL Basophils # (0.0-0.2) K/mcL PT 9.9 (9.4-12.1) Seconds INR 0.9 APTT 28.8 (26.0-36.0) Seconds ABG pH (7.32-7.45) pH Units ABG pCO2 (35-45) mmHg ABG pO2 (85-104) mmHg ABG HCO3 (21-27) mEQ/L ABG Total CO2 (20-26) mEq/L ABG O2 Saturation (95-98) % ABG Base Excess (-2.0 to 3.0) mEq/L Blood Gas Modality Inspired O2 % Sodium (136-145) mEq/L Potassium (3.5-4.5) mEq/L Chloride (98-109) mEq/L Carbon Dioxide (19-29) mEq/L BUN (8-26) mg/dL Creatinine (0.72-1.25) mg/dL Est GFR ( Amer) (> 60) Est GFR (Non-Af Amer) (> 60) BUN/Creatinine Ratio (6-26) Glucose (70-99) mg/dL Calculated Osmolality (280-300) Lactic Acid (0.5-2.2) mmol/L Calcium (8.6-10.8) mg/dL Troponin I 0.01 (0-0.03) ng/mL B-Natriuretic Peptide 82 (0-100) pg/mL 02/19/17 Range/Units 16:41 WBC (4.3-11.1) K/mcL RBC (4.19-5.50) M/mcL Hgb (12.9-16.9) g/dL Hct (37.5-50.1) % MCV (83.0-100.0) fL MCH (28.0-33.3) pg MCHC (31.6-35.5) g/dL RDW (11.5-14.5) % Plt Count (140-400) K/mcL MPV (9.4-12.4) fL Immature Gran % (0-4) % Seg Neutrophils % % Lymphocytes % % Monocytes % % Eosinophils % % Basophils % % Neutrophils # (1.6-8.9) K/mcL Lymphocytes # (0.6-4.6) K/mcL Monocytes # (0.0-1.3) K/mcL Eosinophils # (0.0-0.6) K/mcL Basophils # (0.0-0.2) K/mcL PT (9.4-12.1) Seconds INR APTT (26.0-36.0) Seconds ABG pH 7.37 (7.32-7.45) pH Units ABG pCO2 51 H (35-45) mmHg ABG pO2 134 H (85-104) mmHg ABG HCO3 29.5 H (21-27) mEQ/L ABG Total CO2 31.1 H (20-26) mEq/L ABG O2 Saturation 99 H (95-98) % ABG Base Excess 3.1 H (-2.0 to 3.0) mEq/L Blood Gas Modality BIPAP Inspired O2 40 % Sodium (136-145) mEq/L Potassium (3.5-4.5) mEq/L Chloride (98-109) mEq/L Carbon Dioxide (19-29) mEq/L BUN (8-26) mg/dL Creatinine (0.72-1.25) mg/dL Est GFR ( Amer) (> 60) Est GFR (Non-Af Amer) (> 60) BUN/Creatinine Ratio (6-26) Glucose (70-99) mg/dL Calculated Osmolality (280-300) Lactic Acid (0.5-2.2) mmol/L Calcium (8.6-10.8) mg/dL Troponin I (0-0.03) ng/mL B-Natriuretic Peptide (0-100) pg/mL - Radiology Data Radiology results reviewed: Yes I reviewed the patient's radiology results. - EKG Data EKG attestation: Yes I reviewed and interpreted this EKG. EKG results narrative: Patient's ECG on February 19 at 3:41 PM shows sinus tachycardia with frequent ventricular premature complexes. Change from his ECG on 12/11/2016 which showed sinus rhythm.
[2017-02-19] MEDS ORDERED: Azithromycin 500 MG in D5% in Water 250 ML IVPB ONE (15:58)
[2017-02-19 16:14] LABS: Basophils % 0.5 %; Eosinophils # 0.4 K/mcL (0.0-0.6); Eosinophils % 7.3 %; Hematocrit 44.3 % (37.5-50.1); Hemoglobin 14.6 g/dL (12.9-16.9); Immature Granulocytes % 0.2 % (0-4); Lymphocytes # 1.3 K/mcL (0.6-4.6); Lymphocytes % 22.7 %; Mean Corpuscular Hemoglobin 32.4 pg (28.0-33.3); Mean Corpuscular Volume 98.2 fL (83.0-100.0); Mean Platelet Volume 8.5 fL (9.4-12.4); Monocytes # 0.6 K/mcL (0.0-1.3); Monocytes % 10.7 %; Neutrophils # 3.4 K/mcL (1.6-8.9); Platelet Count 237 K/mcL (140-400); Red Blood Count 4.51 M/mcL (4.19-5.50); Red Cell Distribution Width 13.5 % (11.5-14.5); Segmented Neutrophils % 58.6 %
[2017-02-19 16:19] LABS: INR 0.9; Prothrombin Time 9.9 Seconds (9.4-12.1)
[2017-02-19 16:22] LABS: Activated Partial Thrombo Time 28.8 Seconds (26.0-36.0)
[2017-02-19 16:27] LABS: BUN/Creatinine Ratio 9 (6-26); Blood Urea Nitrogen 11 mg/dL (8-26); Calcium 8.9 mg/dL (8.6-10.8); Carbon Dioxide 29 mEq/L (19-29); Chloride 103 mEq/L (98-109); Glucose 117 mg/dL (70-99); Osmolality,Calculated 288 (280-300); Potassium 4.3 mEq/L (3.5-4.5); Sodium 139 mEq/L (136-145); eGFR For African Americans > 60 (> 60); eGFR For Non-African Americans > 60 (> 60)
[2017-02-19 16:45] LABS: ABG Base Excess 3.1 mEq/L (-2.0 to 3.0); ABG HCO3 29.5 mEQ/L (21-27); ABG Oxygen Saturation 99 % (95-98); ABG PCO2 51 mmHg (35-45); ABG PH 7.37 pH Units (7.32-7.45); ABG PO2 134 mmHg (85-104); ABG TCO2 31.1 mEq/L (20-26); Blood Gas FiO2 40 %
--- NOTE | 2017-02-19 18:03 | Internal Med History&Physical ---
Date of Encounter: 02/19/17 Time of Encounter: 18:01 Assessment and Plan (1) COPD exacerbation Current visit: No Status: Acute Start the patient on solumedrol 60 q 6, q 3 h nebulizer treatment and azithromycin for acute bronchitis. ABG shows compensated respiratory acidosis. PO2 134 on 40% FIO2. Telemetry monitoring. He is full code. Heparin and famotidine for DVT and PUD prophylaxis respectively. Inpatient admission Internal Medicine - H&P: HPI Chief complaint: sob History of present illness: Mr. Young is a 56 year old male with h/o COPD presents to the ED with SOB. For the past 3 days the patient has been having progressive SOB, non productive cough and chest wheezing. He denied any sputum production. No fever or chills. He has been intubated previously for COPD exacerbation. He has been working to breath on arrival to the ED and was placed on Bipap on presentation. He was more or less comfortable during my interview. No fever or chills. Past Med Surg Social Fam HX - Past Medical History Medical history: COPD, hypertension Psychiatric history: anxiety, depression - Past Surgical History Surgical History: other - Social History Smoking Status: Former smoker Smokeless Tobacco Status: No Alcohol use: occasionally Drug use: none - Family History Brother Family Member Ethnicity: Non- Living Status: Still Living Hx Family Respiratory Disorders: Yes Internal Medicine - H&P: Meds ALPRAZolam [Xanax 1 MG Tablet] 1 mg PO TID 07/31/16 [History] Albuterol Sulfate [Proair Hfa] 2 puff IH Q4H PRN 07/31/16 [History] Beclomethasone Diprop 40mcg [QVAR 40 mcg] 1 puff IH BID 07/31/16 [History] Gabapentin [Neurontin] 800 mg PO Q6H 07/31/16 [History] Ibuprofen [Motrin] 400 mg PO BID 07/31/16 [History] Ipratropium/Albuterol Neb [Duoneb] 3 ml IH Q6HR 07/31/16 [History] Metoprolol XL (24 HR) Succ [Toprol Xl] 75 mg PO DAILY 07/31/16 [History] Omeprazole [PriLOSEC] 40 mg PO DAILY 07/31/16 [History] Oxycodone HCl/Acetaminophen [Percocet 10-325 mg Tablet] 1 tab PO Q6H PRN [History] Roflumilast [Daliresp] 500 mcg PO DAILY 07/31/16 [History] Sildenafil Citrate [Viagra] 50 - 100 mg PO AD PRN 07/31/16 [History] Simvastatin [Zocor] 40 mg PO QPM 07/31/16 [History] amLODIPine [Norvasc] 10 mg PO DAILY 07/31/16 [History] predniSONE [PredniSONE] 40 mg PO DAILY 12 Days 08/04/16 [Rx] PredniSONE [Deltasone] 60 mg PO DAILY #15 tablet 12/11/16 [Rx] levoFLOXacin [Levaquin] 500 mg PO DAILY #7 tablet 12/11/16 [Rx] Cephalexin [Keflex] 500 mg PO TID 5 Days 01/05/17 [Rx] Ibuprofen [Motrin] 600 mg PO Q8HR PRN #30 tab 01/05/17 [Rx] Allergies codeine Adverse Reaction (Verified 05/26/16 17:44) Itching All Systems PM: A 10-system review of systems was performed and is negative for pertinent findings except as documented above in the HPI. Review of systems: 10 point ROS is negative except for HPI - Constitutional Vitals: Temp Pulse Resp BP Pulse Ox 98.1 F 103 20 132/94 98 02/19/17 15:33 02/19/17 16:59 02/19/17 17:49 02/19/17 17:49 02/19/17 16:59 Exam: Gen.: patient is alert oriented times 3 mild respiratory distress Cardiac: normal S1 S2 no additional sounds chest: Diminished air entry, expiratory wheezing abdomen: soft nontender nondistended lower extremity: lax calf muscles. Neuro: No focal deficits. Internal Med - H&P Results - Labs CBC & Chem 7: 02/19/17 15:59 02/19/17 15:59
[2017-02-19] MEDS: Ipratropium/Albuterol Neb 3 ML IH SCH ×2 (18:10→20:27)
[2017-02-19] MEDS: methylPREDNISolone 125 MG/2 ML VIAL IVP SCH ×2 (18:42→22:51)
[2017-02-19] MEDS: *HR* Heparin 5,000 UNIT/ML VIAL SQ SCH (21:18)
[2017-02-19] MEDS: ALPRAZolam 0.5 MG TABLET PO PRN (21:18)
[2017-02-19] MEDS: Famotidine 20 MG TABLET PO SCH (21:18)
[2017-02-19] MEDS: *HR* OxyCODONE/APAP 10/325 TABLET PO PRN (22:51)
[2017-02-19] MEDS: Gabapentin 400 MG CAPSULE PO PRN (22:51)
[2017-02-20] MEDS: Ipratropium/Albuterol Neb 3 ML IH SCH ×6 (04:50→21:45)
[2017-02-20] MEDS: ALPRAZolam 0.5 MG TABLET PO PRN ×2 (04:57→15:55)
[2017-02-20] MEDS: *HR* OxyCODONE/APAP 10/325 TABLET PO PRN ×3 (04:57→20:42)
[2017-02-20] MEDS: *HR* Heparin 5,000 UNIT/ML VIAL SQ SCH ×3 (04:57→20:43)
[2017-02-20] MEDS: methylPREDNISolone 125 MG/2 ML VIAL IVP SCH ×3 (04:57→18:00)
[2017-02-20 05:07] LABS: Basophils % 0.1 %; Hematocrit 42.5 % (37.5-50.1); Hemoglobin 14.2 g/dL (12.9-16.9); Immature Granulocytes % 0.4 % (0-4); Lymphocytes % 11.4 %; Mean Corpuscular HGB Conc 33.4 g/dL (31.6-35.5); Mean Corpuscular Hemoglobin 32.2 pg (28.0-33.3); Mean Corpuscular Volume 96.4 fL (83.0-100.0); Mean Platelet Volume 8.7 fL (9.4-12.4); Monocytes # 0.1 K/mcL (0.0-1.3); Neutrophils # 7.2 K/mcL (1.6-8.9); Platelet Count 237 K/mcL (140-400); Red Blood Count 4.41 M/mcL (4.19-5.50); Red Cell Distribution Width 13.7 % (11.5-14.5); Segmented Neutrophils % 87.1 %
[2017-02-20 05:24] LABS: BUN/Creatinine Ratio 12 (6-26); Blood Urea Nitrogen 11 mg/dL (8-26); Calcium 8.9 mg/dL (8.6-10.8); Carbon Dioxide 26 mEq/L (19-29); Chloride 104 mEq/L (98-109); Glucose 205 mg/dL (70-99); Magnesium 2.3 mg/dL (1.6-2.6); Osmolality,Calculated 291 (280-300); Potassium 4.4 mEq/L (3.5-4.5); Sodium 138 mEq/L (136-145); eGFR For African Americans > 60 (> 60); eGFR For Non-African Americans > 60 (> 60)
[2017-02-20] MEDS ORDERED: (Roflumilast [Daliresp] 500 MCG) PO SCH (09:00)
[2017-02-20] MEDS: Famotidine 20 MG TABLET PO SCH ×2 (09:01→20:43)
[2017-02-20] MEDS: Gabapentin 400 MG CAPSULE PO PRN (09:01)
--- NOTE | 2017-02-20 10:07 | Internal Med Progress Note ---
<Fiordaliza Sanchez - Last Filed: 02/20/17 11:27> Date of Encounter: 02/20/17 Time of Encounter: 10:06 - Assessment and plan (1) COPD exacerbation Current Visit: No Status: Acute Assessment and plan: Patient presented with increasing SOB 3 days [employer]. Improved with bipap, nebs Currently on somumedrol, duonebs, azithromycin, consider switching to oral tomorrow Patient states has some equipment for oxygen at home as he qualified in the past , but can't use it secondary to not having appropriate tubing Plan: -Continue azithromycin -Continue duonebs -Continue IV solumedrol - Subjective Interval history: Patient seen and examined. Patient lying comfortably in bed, does not appear to be in any respiratory distress. He states that his breathing is improving and he only needed oxygen via NC overnight. He states that he used to have oxgen at home, but does not have properly working equipment to use it. He also qualified for a CPAP a few years ago, but needs to redo his sleep study and does not currently have a CPAP at home. - Constitutional Vitals: Temp Pulse Resp BP Pulse Ox 97.6 F 74 18 122/88 94 02/20/17 07:40 02/20/17 07:40 02/20/17 07:40 02/20/17 07:40 02/20/17 07:40 General appearance: Present: cooperative, A&O X 3, pleasant, no acute distress, answers questions appropriately - Head Head exam: Present: atraumatic, normocephalic - Respiratory Respiratory exam: Present: rales, wheezes. Absent: accessory muscle use, respiratory distress, rhonchi, tachypnea - Expanded Respiratory Exam Location: rales: Left, Right, Lower, wheezes: Right, Left, Upper, Lower - Cardiovascular Cardiovascular exam: Present: RRR, +S1, +S2. Absent: diastolic murmur, gallop, rubs, systolic murmur - GI/Abdominal GI/Abdominal exam: Present: normal bowel sounds, soft, no peritoneal signs. Absent: distended, tenderness - Extremities Exam Extremities exam: Present: warm, radial pulses palpable and symetrical. Absent : calf tenderness, cyanotic, pedal edema - Neurological Exam Neurological exam: Present: oriented X3, no focal deficits. Absent: facial droop, speech deficit Additional comments: resting tremor in right UE - Psychiatric Psychiatric exam: Present: normal affect, normal mood - Skin Skin exam: Present: dry, intact, warm. Absent: rash Internal Medicine: Result - Labs CBC & Chem 7: 02/20/17 04:37 02/20/17 04:37 Labs: Short CBC 02/20/17 Range/Units 04:37 WBC 8.3 (4.3-11.1) K/mcL Hgb 14.2 (12.9-16.9) g/dL Hct 42.5 (37.5-50.1) % Plt Count 237 (140-400) K/mcL Neutrophils # 7.2 (1.6-8.9) K/mcL BMP 02/20/17 04:37 Sodium 138 Potassium 4.4 Chloride 104 Carbon Dioxide 26 BUN 11 Creatinine 0.91 Glucose 205 H Calcium 8.9 - ABG Interpretation ABG results: ABG ABG pH 7.37 pH Units (7.32-7.45) 02/19/17 16:41 ABG pCO2 51 mmHg (35-45) H 02/19/17 16:41 ABG pO2 134 mmHg (85-104) H 02/19/17 16:41 ABG O2 Saturation 99 % (95-98) H 02/19/17 16:41 PT/INR, D-dimer PT 9.9 Seconds (9.4-12.1) 02/19/17 15:59 Consult Discharge Plan - Plan Referrals: Tal Braden MD [Primary Care Provider] - <Davion Freeman - Last Filed: 02/20/17 17:35> Date of Encounter: 02/20/17 - Assessment and plan (1) Acute respiratory failure with hypoxia and hypercapnia Current Visit: Yes Status: Acute (2) Acute exacerbation of chronic obstructive airways disease Current Visit: Yes Status: Acute (3) Essential hypertension Current Visit: No Status: Chronic - Constitutional Vitals: Temp Pulse Resp BP Pulse Ox 97.8 F 88 16 124/79 96 02/20/17 15:23 02/20/17 15:23 02/20/17 15:57 02/20/17 15:23 02/20/17 15:57 Internal Medicine: Result - Labs CBC & Chem 7: 02/20/17 04:37 02/20/17 04:37 Labs: Short CBC 02/20/17 Range/Units 04:37 WBC 8.3 (4.3-11.1) K/mcL Hgb 14.2 (12.9-16.9) g/dL Hct 42.5 (37.5-50.1) % Plt Count 237 (140-400) K/mcL Neutrophils # 7.2 (1.6-8.9) K/mcL BMP 02/20/17 04:37 Sodium 138 Potassium 4.4 Chloride 104 Carbon Dioxide 26 BUN 11 Creatinine 0.91 Glucose 205 H Calcium 8.9 - ABG Interpretation ABG results: ABG ABG pH 7.37 pH Units (7.32-7.45) 02/19/17 16:41 ABG pCO2 51 mmHg (35-45) H 02/19/17 16:41 ABG pO2 134 mmHg (85-104) H 02/19/17 16:41 ABG O2 Saturation 99 % (95-98) H 02/19/17 16:41 PT/INR, D-dimer PT 9.9 Seconds (9.4-12.1) 02/19/17 15:59 - Attending Attestation I examined this patient and my medical decision-making was reviewed with the Resident Physician on 02/20/17. I agree with the documented findings, disposition and treatment plan as described except to the extent set forth below. Mr. Young is currently admitted for acute exac COPD. He remains moderate to high risk due to potential for worsening respiratory status. Mr. Young feels he is breathing a little better. Just got cleaned up so more dyspneic now. Coughing some. No fever or chills. No GI symptoms currently. Exam Alert. Comfortable Mucus membranes dry Heart reg Lungs with some end exp wheeze Abd soft I/P 1. Acute hypoxic resp failure 2. Acute exac COPD Further diagnoses and plan as above.
[2017-02-20] MEDS ORDERED: Azithromycin 500 MG in D5% in Water 250 ML IVPB SCH (18:00)
[2017-02-21] MEDS: ALPRAZolam 0.5 MG TABLET PO PRN ×3 (00:22→19:48)
[2017-02-21] MEDS: methylPREDNISolone 125 MG/2 ML VIAL IVP SCH ×4 (00:22→21:35)
[2017-02-21] MEDS: *HR* OxyCODONE/APAP 10/325 TABLET PO PRN ×4 (03:49→21:36)
[2017-02-21 05:32] LABS: Hematocrit 40.7 % (37.5-50.1); Hemoglobin 13.6 g/dL (12.9-16.9); Mean Corpuscular HGB Conc 33.4 g/dL (31.6-35.5); Mean Corpuscular Hemoglobin 32.7 pg (28.0-33.3); Mean Corpuscular Volume 97.8 fL (83.0-100.0); Mean Platelet Volume 9.2 fL (9.4-12.4); Platelet Count 224 K/mcL (140-400); Red Blood Count 4.16 M/mcL (4.19-5.50)
[2017-02-21 05:46] LABS: BUN/Creatinine Ratio 17 (6-26); Blood Urea Nitrogen 17 mg/dL (8-26); Calcium 9.1 mg/dL (8.6-10.8); Carbon Dioxide 30 mEq/L (19-29); Chloride 104 mEq/L (98-109); Glucose 188 mg/dL (70-99); Osmolality,Calculated 297 (280-300); Potassium 4.4 mEq/L (3.5-4.5); Sodium 140 mEq/L (136-145); eGFR For African Americans > 60 (> 60); eGFR For Non-African Americans > 60 (> 60)
[2017-02-21] MEDS: *HR* Heparin 5,000 UNIT/ML VIAL SQ SCH ×3 (06:05→21:35)
[2017-02-21] MEDS: Ipratropium/Albuterol Neb 3 ML IH SCH ×6 (06:17→20:07)
[2017-02-21] MEDS ORDERED: Albuterol 2.5 MG/3 ML NEBULIZER IH PRN (11:16)
--- NOTE | 2017-02-21 15:11 | Electrocardiograph Report ---
[address] [address] Test Date: 2017-02-19 Pat Name: Ramy Young Department: 102 Room: 2A14 Gender: M Investigations Manager: Amando : 1960 Requested By: Juanis Celeste Order Number: [id number] Reading MD: Kaykay Rosa Measurements Intervals [place] Rate: 106 P: 86 AK: 156 QRS: 40 QRSD: 87 T: 42 QT: 329 QTc: 391 Interpretive Statements SINUS TACHYCARDIA WITH VENTRICULAR PREMATURE COMPLEXES ABNORMAL RHYTHM ECG Electronically Signed On 02-20-2017 12:24:40 EDT by Kaykay Rosa
[2017-02-21] MEDS: Gabapentin 400 MG CAPSULE PO SCH ×2 (15:30→21:36)
--- NOTE | 2017-02-21 16:17 | Internal Med Progress Note ---
<Paulette Vega - Last Filed: 02/21/17 16:15> Date of Encounter: 02/21/17 Time of Encounter: 16:15 - Assessment and plan (1) COPD exacerbation Current Visit: No Status: Acute Assessment and plan: patient came in complaining of progressive SOB x3 days with nonproductive cough and wheezing. CXR showed no focal infiltrates. patient is not on home oxygen Plan: methylprednisolone [id number] continue DuoNebs continue azithromycin PO added ceftriaxone today. continue to wean off oxygen as tolerated. guanfenacin PRN. (2) Essential hypertension Current Visit: No Status: Chronic Assessment and plan: blood pressures well controlled at this time. continue home medications. (3) Hyperlipidemia Current Visit: Yes Status: Acute Assessment and plan: continue simvastatin Qualifiers: Hyperlipidemia type: unspecified Qualified Code(s): E78.5 - Hyperlipidemia , unspecified (4) DVT prophylaxis Current Visit: No Status: Acute Assessment and plan: heparin SQ - Subjective Interval history: 56 year old male evaluated at bedside. patient denies nausea, vomiting, diarrhea , fever, chills, chest pain, shortness of breath. he reports chronic pain on the right side of his body secondary to an electricution accident at work. he denies any further complaints today. - Constitutional Vitals: Temp Pulse Resp BP Pulse Ox 97.6 F 81 16 130/66 96 02/21/17 11:05 02/21/17 11:05 02/21/17 15:56 02/21/17 11:05 02/21/17 15:56 General appearance: Present: cooperative, A&O X 3, pleasant, no acute distress, answers questions appropriately - Head Head exam: Present: atraumatic, normocephalic - Neck Neck exam general surgery: Present: supple, trachea midline - Respiratory Additional comments: diffuse wheezing present on left lung - Cardiovascular Cardiovascular exam: Present: RRR, +S1, +S2 - GI/Abdominal GI/Abdominal exam: Present: normal bowel sounds, soft. Absent: distended, tenderness - Extremities Exam Additional comments: chronic right arm tremor - Neurological Exam Neurological exam: Present: alert, oriented X3 - Psychiatric Psychiatric exam: Present: normal affect, normal mood - Skin Skin exam: Present: intact Internal Medicine: Result - Labs CBC & Chem 7: 02/21/17 05:10 02/21/17 05:10 Labs: Short CBC 02/21/17 Range/Units 05:10 WBC 12.1 H (4.3-11.1) K/mcL Hgb 13.6 (12.9-16.9) g/dL Hct 40.7 (37.5-50.1) % Plt Count 224 (140-400) K/mcL BMP 02/21/17 05:10 Sodium 140 Potassium 4.4 Chloride 104 Carbon Dioxide 30 H BUN 17 Creatinine 1.03 Glucose 188 H Calcium 9.1 - ABG Interpretation ABG results: ABG ABG pH 7.37 pH Units (7.32-7.45) 02/19/17 16:41 ABG pCO2 51 mmHg (35-45) H 02/19/17 16:41 ABG pO2 134 mmHg (85-104) H 02/19/17 16:41 ABG O2 Saturation 99 % (95-98) H 02/19/17 16:41 PT/INR, D-dimer PT 9.9 Seconds (9.4-12.1) 02/19/17 15:59 Consult Discharge Plan - Plan Referrals: Tal Braden MD [Primary Care Provider] - 02/28/17 9:45 am (web request 02/21) <Davion Freeman - Last Filed: 02/21/17 19:14> Date of Encounter: 02/21/17 - Assessment and plan (1) Acute respiratory failure with hypoxia and hypercapnia Current Visit: Yes Status: Acute (2) Acute exacerbation of chronic obstructive airways disease Current Visit: Yes Status: Acute (3) Essential hypertension Current Visit: No Status: Chronic (4) Hyperlipidemia Current Visit: Yes Status: Acute Qualifiers: Hyperlipidemia type: mixed hyperlipidemia Qualified Code(s): E78.2 - Mixed hyperlipidemia (5) Chronic pain Current Visit: Yes Status: Acute Qualifiers: Chronic pain type: chronic pain syndrome Qualified Code(s): G89.4 - Chronic pain syndrome - Constitutional Vitals: Temp Pulse Resp BP Pulse Ox 98.0 F 79 16 143/76 95 02/21/17 16:24 02/21/17 16:24 02/21/17 17:25 02/21/17 16:24 02/21/17 17:25 Internal Medicine: Result - Labs CBC & Chem 7: 02/21/17 05:10 02/21/17 05:10 Labs: Short CBC 02/21/17 Range/Units 05:10 WBC 12.1 H (4.3-11.1) K/mcL Hgb 13.6 (12.9-16.9) g/dL Hct 40.7 (37.5-50.1) % Plt Count 224 (140-400) K/mcL BMP 02/21/17 05:10 Sodium 140 Potassium 4.4 Chloride 104 Carbon Dioxide 30 H BUN 17 Creatinine 1.03 Glucose 188 H Calcium 9.1 - ABG Interpretation ABG results: ABG ABG pH 7.37 pH Units (7.32-7.45) 02/19/17 16:41 ABG pCO2 51 mmHg (35-45) H 02/19/17 16:41 ABG pO2 134 mmHg (85-104) H 02/19/17 16:41 ABG O2 Saturation 99 % (95-98) H 02/19/17 16:41 PT/INR, D-dimer PT 9.9 Seconds (9.4-12.1) 02/19/17 15:59 - Attending Attestation I examined this patient and my medical decision-making was reviewed with the Resident Physician on 02/21/17. I agree with the documented findings, disposition and treatment plan as described except to the extent set forth below. Mr. Young is currently admitted for acute exac COPD. He remains moderate to high risk due to potential for worsening resp status. Mr. Young is having a lot of coughing. No fever or chills. Dyspneic with cough. Pain controlled. Exam alert. comfortable Mucus membranes dry Heart reg Wheeze bilaterally Abd soft No edema I/P 1 COPD exac 2. Cough Further diagnoses and plan as above.
[2017-02-21] MEDS: Azithromycin 250 MG TABLET PO SCH (17:17)
[2017-02-21] MEDS ORDERED: Gabapentin 400 MG CAPSULE PO SCH (18:00)
[2017-02-22] MEDS: ALPRAZolam 0.5 MG TABLET PO PRN ×3 (03:36→22:29)
[2017-02-22] MEDS: *HR* OxyCODONE/APAP 10/325 TABLET PO PRN ×4 (03:37→22:29)
[2017-02-22] MEDS: Ipratropium/Albuterol Neb 3 ML IH SCH ×6 (05:01→20:17)
[2017-02-22] MEDS: *HR* Heparin 5,000 UNIT/ML VIAL SQ SCH ×3 (05:31→22:28)
[2017-02-22] MEDS: methylPREDNISolone 125 MG/2 ML VIAL IVP SCH (05:33)
[2017-02-22 06:44] LABS: Basophils % 0.1 %; Hematocrit 40.6 % (37.5-50.1); Hemoglobin 13.4 g/dL (12.9-16.9); Lymphocytes # 1.1 K/mcL (0.6-4.6); Lymphocytes % 11.1 %; Mean Corpuscular Hemoglobin 32.7 pg (28.0-33.3); Mean Platelet Volume 9.4 fL (9.4-12.4); Monocytes # 0.5 K/mcL (0.0-1.3); Monocytes % 5.2 %; Neutrophils # 7.8 K/mcL (1.6-8.9); Platelet Count 212 K/mcL (140-400); Red Cell Distribution Width 14.1 % (11.5-14.5); Segmented Neutrophils % 82.6 %
[2017-02-22 06:47] LABS: BUN/Creatinine Ratio 17 (6-26); Blood Urea Nitrogen 15 mg/dL (8-26); Calcium 9.1 mg/dL (8.6-10.8); Carbon Dioxide 30 mEq/L (19-29); Chloride 103 mEq/L (98-109); Glucose 157 mg/dL (70-99); Osmolality,Calculated 292 (280-300); Potassium 4.1 mEq/L (3.5-4.5); Sodium 139 mEq/L (136-145); eGFR For African Americans > 60 (> 60); eGFR For Non-African Americans > 60 (> 60)
[2017-02-22] MEDS: Gabapentin 400 MG CAPSULE PO SCH ×2 (08:56→16:08)
[2017-02-22] MEDS: Metoprolol XL (24 HR) Succ 50 MG TAB.ER.24H PO SCH (08:58)
[2017-02-22] MEDS: amLODIPine 5 MG TABLET PO SCH (08:59)
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
[2017-02-22] MEDS: predniSONE 20 MG TABLET PO SCH (16:07)
[2017-02-22] MEDS: Azithromycin 250 MG TABLET PO SCH (17:21)
[2017-02-23 04:39] LABS: Basophils % 0.2 %; Hemoglobin 13.8 g/dL (12.9-16.9); Immature Granulocytes % 1.5 % (0-4); Lymphocytes # 2.1 K/mcL (0.6-4.6); Lymphocytes % 21.5 %; Mean Corpuscular HGB Conc 32.1 g/dL (31.6-35.5); Mean Corpuscular Hemoglobin 32.2 pg (28.0-33.3); Mean Corpuscular Volume 100.5 fL (83.0-100.0); Mean Platelet Volume 9.4 fL (9.4-12.4); Monocytes # 1.1 K/mcL (0.0-1.3); Monocytes % 10.9 %; Neutrophils # 6.5 K/mcL (1.6-8.9); Platelet Count 225 K/mcL (140-400); Red Blood Count 4.28 M/mcL (4.19-5.50); Red Cell Distribution Width 13.9 % (11.5-14.5); Segmented Neutrophils % 65.9 %
[2017-02-23] MEDS: Gabapentin 400 MG CAPSULE PO SCH ×3 (04:45→17:10)
[2017-02-23] MEDS: *HR* OxyCODONE/APAP 10/325 TABLET PO PRN ×3 (04:45→17:10)
[2017-02-23] MEDS: *HR* Heparin 5,000 UNIT/ML VIAL SQ SCH ×3 (04:46→20:28)
[2017-02-23 04:49] LABS: BUN/Creatinine Ratio 19 (6-26); Blood Urea Nitrogen 18 mg/dL (8-26); Calcium 8.9 mg/dL (8.6-10.8); Carbon Dioxide 34 mEq/L (19-29); Chloride 100 mEq/L (98-109); Glucose 139 mg/dL (70-99); Osmolality,Calculated 292 (280-300); Potassium 3.6 mEq/L (3.5-4.5); Sodium 139 mEq/L (136-145); eGFR For African Americans > 60 (> 60); eGFR For Non-African Americans > 60 (> 60)
--- NOTE | 2017-02-23 06:50 | Internal Med Progress Note ---
<Paulette Vega - Last Filed: 02/23/17 15:02> Date of Encounter: 02/23/17 Time of Encounter: 06:48 - Assessment and plan (1) COPD exacerbation Current Visit: No Status: Acute Assessment and plan: patient came in complaining of progressive SOB x3 days with nonproductive cough and wheezing. CXR showed no focal infiltrates. patient is not on home oxygen Plan: contine prednisone 40mg daily today wean off oxygen as tolerated. wheezing still present but improved from prior. continue DuoNebs scheduled PO azithromycin day 4 ceftriaxone day 3 continue to wean off oxygen as tolerated. guanfenacin PRN. (2) Essential hypertension Current Visit: No Status: Chronic Assessment and plan: blood pressures well controlled at this time. continue home medications. (3) Hyperlipidemia Current Visit: Yes Status: Acute Assessment and plan: continue simvastatin Qualifiers: Hyperlipidemia type: mixed hyperlipidemia Qualified Code(s): E78.2 - Mixed hyperlipidemia (4) DVT prophylaxis Current Visit: No Status: Acute Assessment and plan: heparin SQ - Subjective Interval history: 56 year old male evaluated at bedside. He denies nausea, vomiting, diarrhea, fever, chills. He denies any new complaints today. - Constitutional Vitals: Temp Pulse Resp BP Pulse Ox 97.4 F L 50 20 112/73 98 02/23/17 03:50 02/23/17 03:50 02/23/17 03:50 02/23/17 03:50 02/23/17 03:50 General appearance: Present: cooperative, A&O X 3, pleasant, no acute distress, answers questions appropriately - Head Head exam: Present: atraumatic, normocephalic - Neck Neck exam general surgery: Present: supple, trachea midline - Respiratory Additional comments: expiratory wheezing in upper quadrants bilaterally, but improved from prior. - Cardiovascular Cardiovascular exam: Present: RRR, +S1, +S2 - GI/Abdominal GI/Abdominal exam: Present: normal bowel sounds, soft. Absent: distended, tenderness - Extremities Exam Extremities exam: Absent: cyanotic, pedal edema Additional comments: right upper extremity tremors. - Neurological Exam Neurological exam: Present: alert, oriented X3 - Psychiatric Psychiatric exam: Present: normal affect, normal mood - Skin Skin exam: Present: intact Internal Medicine: Result - Labs CBC & Chem 7: 02/23/17 04:11 02/23/17 04:11 Labs: Short CBC 02/23/17 Range/Units 04:11 WBC 9.8 (4.3-11.1) K/mcL Hgb 13.8 (12.9-16.9) g/dL Hct 43.0 (37.5-50.1) % Plt Count 225 (140-400) K/mcL Neutrophils # 6.5 (1.6-8.9) K/mcL BMP 02/22/17 02/23/17 06:07 04:11 Sodium 139 139 Potassium 4.1 3.6 Chloride 103 100 Carbon Dioxide 30 H 34 H BUN 15 18 Creatinine 0.90 0.93 Glucose 157 H 139 H Calcium 9.1 8.9 - ABG Interpretation ABG results: ABG ABG pH 7.37 pH Units (7.32-7.45) 02/19/17 16:41 ABG pCO2 51 mmHg (35-45) H 02/19/17 16:41 ABG pO2 134 mmHg (85-104) H 02/19/17 16:41 ABG O2 Saturation 99 % (95-98) H 02/19/17 16:41 PT/INR, D-dimer PT 9.9 Seconds (9.4-12.1) 02/19/17 15:59 Consult Discharge Plan - Plan Referrals: Tal Braden MD [Primary Care Provider] - 02/28/17 9:45 am (web request 02/21) <Declan Bach T - Last Filed: 02/23/17 16:50> Date of Encounter: 02/23/17 - Constitutional Vitals: Temp Pulse Resp BP Pulse Ox 97.3 F L 90 17 93/60 99 02/23/17 16:29 02/23/17 16:29 02/23/17 16:29 02/23/17 16:29 02/23/17 16:29 Internal Medicine: Result - Labs CBC & Chem 7: 02/23/17 04:11 02/23/17 04:11 Labs: Short CBC 02/23/17 Range/Units 04:11 WBC 9.8 (4.3-11.1) K/mcL Hgb 13.8 (12.9-16.9) g/dL Hct 43.0 (37.5-50.1) % Plt Count 225 (140-400) K/mcL Neutrophils # 6.5 (1.6-8.9) K/mcL BMP 02/23/17 04:11 Sodium 139 Potassium 3.6 Chloride 100 Carbon Dioxide 34 H BUN 18 Creatinine 0.93 Glucose 139 H Calcium 8.9 - ABG Interpretation ABG results: ABG ABG pH 7.37 pH Units (7.32-7.45) 02/19/17 16:41 ABG pCO2 51 mmHg (35-45) H 02/19/17 16:41 ABG pO2 134 mmHg (85-104) H 02/19/17 16:41 ABG O2 Saturation 99 % (95-98) H 02/19/17 16:41 PT/INR, D-dimer PT 9.9 Seconds (9.4-12.1) 02/19/17 15:59 - Attending Attestation I examined this patient and my medical decision-making was reviewed with the Resident Physician on 02/23/17. I agree with the documented findings, disposition and treatment plan as described except to the extent set forth below. 56 Y/O M being managed for COPDE. He has a known hx of tremors to RUE , HTN On exam this morning, vitals are stable He has no new complains He is still wheezing diffusely on all quadrants, slightly improved Labs and Imaging reviewed Plan is to continue current management, Rest of details as in resident physician's documentation above
[2017-02-23] MEDS: Ipratropium/Albuterol Neb 3 ML IH SCH ×5 (07:21→19:44)
[2017-02-23] MEDS: predniSONE 20 MG TABLET PO SCH (08:14)
[2017-02-23] MEDS: amLODIPine 5 MG TABLET PO SCH (08:14)
[2017-02-23] MEDS: Metoprolol XL (24 HR) Succ 50 MG TAB.ER.24H PO SCH (08:14)
[2017-02-23] MEDS: ALPRAZolam 0.5 MG TABLET PO PRN ×2 (10:57→17:26)
[2017-02-23] MEDS: Budesonide/Formoterol 160/4.5 MDI IH SCH ×2 (11:06→19:44)
[2017-02-23] MEDS: Azithromycin 250 MG TABLET PO SCH (17:11)
[2017-02-24] MEDS: ALPRAZolam 0.5 MG TABLET PO PRN ×2 (00:13→09:19)
[2017-02-24] MEDS: Gabapentin 400 MG CAPSULE PO SCH ×2 (00:13→08:43)
[2017-02-24] MEDS: *HR* OxyCODONE/APAP 10/325 TABLET PO PRN ×2 (00:13→06:12)
[2017-02-24] MEDS: Ipratropium/Albuterol Neb 3 ML IH SCH ×4 (00:15→11:27)
[2017-02-24 03:30] LABS: Basophils % 0.5 %; Eosinophils % 0.2 %; Hematocrit 43.1 % (37.5-50.1); Hemoglobin 14.1 g/dL (12.9-16.9); Immature Granulocytes % 3.1 % (0-4); Mean Corpuscular HGB Conc 32.7 g/dL (31.6-35.5); Mean Corpuscular Hemoglobin 32.9 pg (28.0-33.3); Mean Corpuscular Volume 100.7 fL (83.0-100.0); Mean Platelet Volume 9.5 fL (9.4-12.4); Monocytes # 0.9 K/mcL (0.0-1.3); Monocytes % 10.5 %; Neutrophils # 4.6 K/mcL (1.6-8.9); Platelet Count 196 K/mcL (140-400); Red Blood Count 4.28 M/mcL (4.19-5.50); Segmented Neutrophils % 51.7 %
[2017-02-24 03:42] LABS: BUN/Creatinine Ratio 13 (6-26); Blood Urea Nitrogen 14 mg/dL (8-26); Calcium 8.9 mg/dL (8.6-10.8); Carbon Dioxide 33 mEq/L (19-29); Chloride 102 mEq/L (98-109); Glucose 147 mg/dL (70-99); Osmolality,Calculated 297 (280-300); Sodium 142 mEq/L (136-145); eGFR For African Americans > 60 (> 60); eGFR For Non-African Americans > 60 (> 60)
--- NOTE | 2017-02-24 05:57 | Discharge Summary ---
<Paulette Vega - Last Filed: 02/24/17 09:27> Date of Encounter: 02/24/17 Time of Encounter: 05:47 - Discharge Diagnosis (1) COPD exacerbation Priority: Primary Status: Acute (2) Essential hypertension Priority: Secondary Status: Chronic (3) Hyperlipidemia Priority: Secondary Status: Acute Qualifiers: Hyperlipidemia type: mixed hyperlipidemia Qualified Code(s): E78.2 - Mixed hyperlipidemia (4) DVT prophylaxis Priority: Secondary Status: Acute - Discharge Medications Prescriptions: Cefdinir [Omnicef] 300 mg PO BID #6 capsule GuaiFENesin ER [Mucinex] 600 mg PO BID PRN #28 tab PRN Reason: as needed for cough predniSONE [PredniSONE] See Taper PO TAPER #30 tablet Home Medications: ALPRAZolam [Xanax 1 MG Tablet] 1 mg PO TID PRN 07/31/16 [History] Albuterol Sulfate [Proair Hfa] 2 puff IH Q4H PRN 07/31/16 [History] Gabapentin [Neurontin] 800 mg PO Q6H 07/31/16 [History] Ipratropium/Albuterol Neb [Duoneb] 3 ml IH Q6HR 07/31/16 [History] Omeprazole [PriLOSEC] 40 mg PO DAILY 07/31/16 [History] Oxycodone HCl/Acetaminophen [Percocet 10-325 mg Tablet] 1 tab PO Q6H PRN [History] Simvastatin [Zocor] 40 mg PO QPM 07/31/16 [History] amLODIPine [Norvasc] 10 mg PO DAILY 07/31/16 [History] Fluticasone/Salmeterol [Advair 250-50 Diskus] 2 puff IH BID 02/20/17 [History] Metoprolol XL (24 HR) Succ [Toprol Xl] 75 mg PO DAILY 02/20/17 [History] Cefdinir [Omnicef] 300 mg PO BID #6 capsule 02/24/17 [Rx] GuaiFENesin ER [Mucinex] 600 mg PO BID PRN #28 tab 02/24/17 [Rx] predniSONE [PredniSONE] See Taper PO TAPER #30 tablet 02/24/17 [Rx] Allergies/Adverse Reactions: Allergies codeine Adverse Reaction (Verified 05/26/16 17:44) Itching Date of admission: 02/19/17 17:45 Primary care physician: Tal Braden MD Consults: 02/20/17 11:34 Consult to Flare Breaker [CONS] Routine Reason for SW Consult: discharge planning - Patient Status Disposition: Home, Self-Care Condition: Good Functional capacity at discharge: uses cane/walker Overall status at discharge: patient is progressing back to baseline - Discharge Instructions Instructions: Prednisone (By mouth), Guaifenesin (By mouth), Cefdinir (By mouth ), Chronic Obstructive Pulmonary Disease (DC) Follow Up With: Tal Braden MD [Primary Care Provider] - 02/28/17 9:45 am (web request 02/21) Additional Instructions: finish course of antibiotics. Follow up with primary care provider within 3-5 days of discharge finish steroid taper as instructed Take all medications as prescribed Please return to the hospital if you develop worsening shortness of breath, chest pain, fevers, or chills. - Diet and Activity Activity: increase activity as tolerated Diet: low fat, low cholesterol Hospital course: Mr. Young is a 56 year old male with PMHx of COPD, HTN, hyperlipidemia who presented to [facility] on 02/19/17 with chief complaint of progressive shortness of breath and non productive cough and wheezing for three days. Upon presentation he was placed on BiPAP and then subsequently admitted fro COPD exacerbation. EKG showed sinus tachycardia with PVCs. Patient was initially on IV steroids and switched to oral steroids. He continued to improve throughout his hospital stay and successfully was weaned off of oxygen. He did not qualify for home oxygen during his hospital stay. Patient was stable throughout his hospital stay and remained stable at [facility]. Discharge instructions: finish course of antibiotics. Finish steroid taper as instructed. Follow up with primary care provider within 3-5 days of discharge Take all medications as prescribed Please return to the hospital if you develop worsening shortness of breath, chest pain, fevers, or chills. - Time Spent with Patient Total time spent providing and/or coordinating discharge services: - Constitutional Vitals: Temp Pulse Resp BP Pulse Ox 97.7 F 63 16 108/69 96 02/24/17 04:42 02/24/17 04:42 02/24/17 04:42 02/24/17 04:42 02/24/17 04:42 General appearance: Present: cooperative, A&O X 3, pleasant, no acute distress, answers questions appropriately - Head Head exam: Present: atraumatic, normocephalic - Neck Neck exam general surgery: Present: supple, trachea midline - Respiratory Additional comments: wheezing present right side more than left. mild wheezing on left upper and lower lobes - Cardiovascular Cardiovascular exam: Present: RRR, +S1, +S2 - GI/Abdominal GI/Abdominal exam: Present: normal bowel sounds, soft. Absent: distended, tenderness - Extremities Exam Extremities exam: Absent: cyanotic, pedal edema - Neurological Exam Neurological exam: Present: alert, oriented X3, no focal deficits - Psychiatric Psychiatric exam: Present: normal affect, normal mood - Skin Skin exam: Present: intact <Declan Bach - Last Filed: 02/24/17 12:58> Date of Encounter: 02/24/17 Date of admission: 02/19/17 17:45 Primary care physician: Tal Braden MD Consults: 02/20/17 11:34 Consult to Flare Breaker [CONS] Routine Reason for SW Consult: discharge planning Hospital course: Mr. Young is a 56 year old male - Time Spent with Patient Total time spent providing and/or coordinating discharge services: - Constitutional Vitals: Temp Pulse Resp BP Pulse Ox 97.9 F 56 18 132/66 94 02/24/17 11:19 02/24/17 11:19 02/24/17 11:29 02/24/17 11:19 02/24/17 11:29 - Attending Attestation I examined this patient and my medical decision-making was reviewed with the Resident Physician on 02/24/17. I agree with the documented findings, disposition and treatment plan as described except to the extent set forth below. 56 Y/O M being managed for COPDE. He has a known hx of tremors to RUE , HTN On exam this morning, vitals are stable He has no new complains His chest is clear to auscultation, his HS S1, S2, he is not hypoxic, vitals are stable, he did not qualify for home O2 Plan is to discharge home with prednisone taper, Glenda, Omnicef, he has completed course of azithromycin Rest of details as in resident physician's documentation above
[2017-02-24] MEDS: *HR* Heparin 5,000 UNIT/ML VIAL SQ SCH (06:12)
[2017-02-24] MEDS: Budesonide/Formoterol 160/4.5 MDI IH SCH (07:36)
[2017-02-24] MEDS: amLODIPine 5 MG TABLET PO SCH (08:43)
[2017-02-24] MEDS: predniSONE 20 MG TABLET PO SCH (08:43)
[2017-02-24] MEDS: Metoprolol XL (24 HR) Succ 50 MG TAB.ER.24H PO SCH (08:43)
[2017-02-24 11:22] VITALS: BP 132/66
== END 2017-02-24 11:50 | disposition home or self-care (01) | DRG 190 ==
LOC: 2ANU 15:31 → EMEROO 15:31 → SUATTDRO 17:45 → 2ANU 17:52
PROVIDERS: ADMIT Hospitalist; ATTEND Internal Medicine

== ENCOUNTER 2018-01-06 16:24 | Inpatient (IN) ==
[2018-01-06] MEDS ORDERED: Thiamine (B-1) 100 MG in 0.9 % Sodium Chloride 50 ML IVPB ONE (16:50)
--- NOTE | 2018-01-06 17:05 | Emergency Department Note ---
Disposition Clinical Impression: Dehydration, DANIEL (acute kidney injury), Elevated CK, Altered mental status Disposition: Admitted As Inpatient Condition: Fair General Adult HPI - General Chief complaint: ED Psychiatric Symptoms Stated complaint: confusion, AMS, 1A evaluation Time Seen by Provider: 01/06/18 16:31 Source: patient Limitations: no limitations Nursing Notes Reviewed: Yes Vital Signs Reviewed: Yes - History of Present Illness Pain Scale: 10 - Related Data Home Medications Medication Instructions Recorded Confirmed ALPRAZolam [Xanax 1 MG Tablet] 1 mg PO TID PRN 01/06/18 01/06/18 Albuterol Sulfate [Ventolin Hfa] 2 puff IH Q4H PRN 01/06/18 01/06/18 Amlodipine Besylate 10 mg PO DAILY 01/06/18 Budesonide/Formoterol 160/4.5 2 puff IH BIDR 01/06/18 [Symbicort 160/4.5] Gabapentin [Neurontin] 800 mg PO Q6H 01/06/18 01/06/18 Ibuprofen [Motrin] 400 mg PO BID PRN 01/06/18 Ipratropium/Albuterol Neb [Duoneb] 3 ml IH Q6HR PRN 01/06/18 01/06/18 Metoprolol Succinate [Toprol Xl] 75 mg PO DAILY 01/06/18 Omeprazole [PriLOSEC] 40 mg PO DAILY 01/06/18 01/06/18 Simvastatin [Zocor] 40 mg PO HS 01/06/18 Allergies Allergy/AdvReac Type Severity Reaction Status Date / Time codeine AdvReac Itching Verified 01/06/18 21:05 Past Medical History - Past Medical History Medical history: Reports: hypertension Surgical history: Reports: other Psychiatric history: Reports: anxiety, depression - Social History Smoking Status: Never smoker Smokeless Tobacco Status: No Alcohol use: Reports: occasionally Drug use: Reports: none Physical Exam - General General appearance: alert Course Vital Signs Temperature 97.2 F L 01/06/18 16:27 Pulse Rate 100 01/06/18 16:27 Respiratory Rate 18 01/06/18 16:27 Blood Pressure 152/86 01/06/18 16:27 O2 Sat by Pulse Oximetry 96 01/06/18 16:27 Temperature 97.9 F 01/06/18 21:38 Pulse Rate 96 06/22/18 21:38 Respiratory Rate 18 01/06/18 21:38 Blood Pressure 131/74 01/06/18 21:38 O2 Sat by Pulse Oximetry 97 01/06/18 21:38 Oxygen Delivery Oxygen Delivery Room Air Medical Decision Making - Lab Data Result diagrams: 01/06/18 17:18 01/06/18 17:18 Lab Results 01/06/18 01/06/18 01/06/18 Range/Units 17:18 17:18 17:18 WBC 11.2 H (4.3-11.1) K/mcL RBC 4.37 (4.19-5.50) M/mcL Hgb 14.3 (12.9-16.9) g/dL Hct 42.9 (37.5-50.1) % MCV 98.2 (83.0-100.0) fL MCH 32.7 (28.0-33.3) pg MCHC 33.3 (31.6-35.5) g/dL RDW 12.7 (11.5-14.5) % Plt Count 272 (140-400) K/mcL MPV 9.2 L (9.4-12.4) fL Immature Gran % 0.4 (0-4) % Seg Neutrophils % 60.8 % Lymphocytes % 27.4 % Monocytes % 10.8 % Eosinophils % 0.1 % Basophils % 0.5 % Neutrophils # 6.8 (1.6-8.9) K/mcL Lymphocytes # 3.1 (0.6-4.6) K/mcL Monocytes # 1.2 (0.0-1.3) K/mcL Eosinophils # 0.0 (0.0-0.6) K/mcL Basophils # 0.1 (0.0-0.2) K/mcL Sodium 132 L (136-145) mEq/L Potassium 4.5 (3.5-5.1) mEq/L Chloride 91 L (98-107) mEq/L Carbon Dioxide 13 L (23-29) mEq/L BUN 44 H (6-20) mg/dL Creatinine 5.79 H (0.70-1.30) mg/dL Est GFR ( Amer) 12 L (> 60) Est GFR (Non-Af Amer) 10 L (> 60) BUN/Creatinine Ratio 8 (6-26) Glucose 71 (70-105) mg/dL Calculated Osmolality 284 (280-300) Calcium 9.4 (8.6-10.3) mg/dL Total Bilirubin 0.8 (0.3-1.0) mg/dL Direct Bilirubin 0.2 (0.0-0.2) mg/dL Indirect Bilirubin 0.6 (0.0-1.2) mg/dL AST 37 (13-39) Units/L ALT 19 (7-52) Units/L Alkaline Phosphatase 77 (34-104) Units/L Creatine Kinase 1179 H (30-223) Units/L Troponin I < 0.03 (< 0.04) ng/mL Serum Total Protein 8.2 (6.4-8.9) g/dL Albumin 4.9 (3.5-5.7) g/dL Globulin 3.3 (2.4-3.5) g/dL Albumin/Globulin Ratio 1.5 (1.1-2.2) TSH 1.498 (0.340-5.600) mcIU/mL Urine Color (Yellow) Urine Clarity (Clear) Urine pH (5.0-8.0) pH Units Ur Specific [place] (1.010-1.025) Urine Protein (Neg-Trace) mg/dL Urine Glucose (UA) (Normal) mg/dL Urine Ketones (Negative) mg/dL Urine Blood (Negative) Urine Nitrite (Negative) Urine Bilirubin (Negative) Urine Urobilinogen (Normal) mg/dL Ur Leukocyte Esterase (Negative) Urine Microscopic RBC (0-3) per hpf Urine Microscopic WBC (0-3) per hpf Ur Squamous Epith Cells (None-Few) per lpf Urine Bacteria (None-Few) per hpf Hyaline Casts (None-Few) per lpf Ur Culture Indicated? (NO) Urine Opiates Screen (Eesmqm=784) ng/mL Ur Barbiturates Screen (Apbgmx=221) ng/mL Ur Phencyclidine Scrn (Cutoff=25) ng/mL Ur Amphetamines Screen (Gabpsa=5561) ng/mL U Benzodiazepines Scrn (Ppsyaz=596) ng/mL Urine Cocaine Screen (Cutoff= 300) ng/mL U Marijuana (THC) Screen (Cutoff = 50) ng/mL Ethyl Alcohol 21 H (Less than 10) mg/dL 01/06/18 01/06/18 Range/Units 17:49 17:49 WBC (4.3-11.1) K/mcL RBC (4.19-5.50) M/mcL Hgb (12.9-16.9) g/dL Hct (37.5-50.1) % MCV (83.0-100.0) fL MCH (28.0-33.3) pg MCHC (31.6-35.5) g/dL RDW (11.5-14.5) % Plt Count (140-400) K/mcL MPV (9.4-12.4) fL Immature Gran % (0-4) % Seg Neutrophils % % Lymphocytes % % Monocytes % % Eosinophils % % Basophils % % Neutrophils # (1.6-8.9) K/mcL Lymphocytes # (0.6-4.6) K/mcL Monocytes # (0.0-1.3) K/mcL Eosinophils # (0.0-0.6) K/mcL Basophils # (0.0-0.2) K/mcL Sodium (136-145) mEq/L Potassium (3.5-5.1) mEq/L Chloride (98-107) mEq/L Carbon Dioxide (23-29) mEq/L BUN (6-20) mg/dL Creatinine (0.70-1.30) mg/dL Est GFR ( Amer) (> 60) Est GFR (Non-Af Amer) (> 60) BUN/Creatinine Ratio (6-26) Glucose (70-105) mg/dL Calculated Osmolality (280-300) Calcium (8.6-10.3) mg/dL Total Bilirubin (0.3-1.0) mg/dL Direct Bilirubin (0.0-0.2) mg/dL Indirect Bilirubin (0.0-1.2) mg/dL AST (13-39) Units/L ALT (7-52) Units/L Alkaline Phosphatase (34-104) Units/L Creatine Kinase (30-223) Units/L Troponin I (< 0.04) ng/mL Serum Total Protein (6.4-8.9) g/dL Albumin (3.5-5.7) g/dL Globulin (2.4-3.5) g/dL Albumin/Globulin Ratio (1.1-2.2) TSH (0.340-5.600) mcIU/mL Urine Color Yellow (Yellow) Urine Clarity Cloudy A (Clear) Urine pH 5.5 (5.0-8.0) pH Units Ur Specific [place] 1.024 (1.010-1.025) Urine Protein 100 H (Neg-Trace) mg/dL Urine Glucose (UA) Normal (Normal) mg/dL Urine Ketones 15 H (Negative) mg/dL Urine Blood Moderate H (Negative) Urine Nitrite Negative (Negative) Urine Bilirubin Moderate H (Negative) Urine Urobilinogen Normal (Normal) mg/dL Ur Leukocyte Esterase Trace H (Negative) Urine Microscopic RBC 5-15 H (0-3) per hpf Urine Microscopic WBC 30-50 H (0-3) per hpf Ur Squamous Epith Cells Many H (None-Few) per lpf Urine Bacteria Many H (None-Few) per hpf Hyaline Casts Many H (None-Few) per lpf Ur Culture Indicated? NO. A (NO) Urine Opiates Screen Negative (Fbzezj=793) ng/mL Ur Barbiturates Screen Negative (Ibsmvw=540) ng/mL Ur Phencyclidine Scrn Negative (Cutoff=25) ng/mL Ur Amphetamines Screen Negative (Orgaqd=1993) ng/mL U Benzodiazepines Scrn Negative (Rzixjk=692) ng/mL Urine Cocaine Screen Negative (Cutoff= 300) ng/mL U Marijuana (THC) Screen Negative (Cutoff = 50) ng/mL Ethyl Alcohol (Less than 10) mg/dL Critical Care Time Critical Care Time: Yes Total Critical Care Time: 30 Attestation: Critical care performed: Time is exclusive of separately billable procedures. Time includes: direct patient care, patient reassessment, coordination of patient care, interpretation of data (laboratory data, radiology data, and respiratory data), review of patient's medical records, medical consultation and documentation of patient care. Procedures included in critical care time: Procedures excluded from critical care time: Attestation Statement - Attestation Attestation: I examined this patient and my medical decision-making was reviewed with the Resident Physician. I agree with the documented findings, disposition and treatment plan as described except to the extent set forth below. Patient presents to the ED with a chief complaint of altered mental status. EMS reports police was called for a suspicious person in the park. Patient states he is confused. He has been that way for a while. He lives with the sister on [address] but he took off because she yells at him. He has a history of dependence on Xanax and Percocet states he weaned himself off them. He admits to some alcohol a couple of days ago but none today. On examination is awake alert. Oriented 2. Mumbles and is difficult to understand when he speaks. Moves all extremities. Abdomen soft and lungs clear. Plan. Altered mental status workup. Attempted to call his sister Kareen. There was a phone number listed in the contact section of the medical chart, but it is the wrong number. Patient's alcohol is 20. He also has a mild rhabdo with a CK of 1100. Creatinine of 5. IV hydration and admit. Chest X-Ray 01/06/18 16:35 IMPRESSION: No acute process. D/ / Morris Card MD / Morris Card MD Interpreting Provider: Morris Card MD Head CT 01/06/18 16:36 IMPRESSION: Stable CT brain with no acute intracranial abnormality. D/ / Aries Garrett MD / Aries Garrett MD Interpreting Provider: Aries Garrett MD
[2018-01-06 17:30] LABS: Basophils # 0.1 K/mcL (0.0-0.2); Basophils % 0.5 %; Eosinophils % 0.1 %; Hematocrit 42.9 % (37.5-50.1); Hemoglobin 14.3 g/dL (12.9-16.9); Immature Granulocytes % 0.4 % (0-4); Lymphocytes # 3.1 K/mcL (0.6-4.6); Lymphocytes % 27.4 %; Mean Corpuscular HGB Conc 33.3 g/dL (31.6-35.5); Mean Corpuscular Hemoglobin 32.7 pg (28.0-33.3); Mean Corpuscular Volume 98.2 fL (83.0-100.0); Mean Platelet Volume 9.2 fL (9.4-12.4); Monocytes # 1.2 K/mcL (0.0-1.3); Monocytes % 10.8 %; Neutrophils # 6.8 K/mcL (1.6-8.9); Platelet Count 272 K/mcL (140-400); Red Blood Count 4.37 M/mcL (4.19-5.50); Red Cell Distribution Width 12.7 % (11.5-14.5); Segmented Neutrophils % 60.8 %
[2018-01-06 18:02] LABS: Alanine Aminotransferase 19 Units/L (7-52); Albumin 4.9 g/dL (3.5-5.7); Albumin/Globulin Ratio 1.5 (1.1-2.2); Alkaline Phosphatase 77 Units/L (34-104); Aspartate Amino Transferase 37 Units/L (13-39); BUN/Creatinine Ratio 8 (6-26); Bilirubin,Direct 0.2 mg/dL (0.0-0.2); Bilirubin,Indirect 0.6 mg/dL (0.0-1.2); Bilirubin,Total 0.8 mg/dL (0.3-1.0); Blood Urea Nitrogen 44 mg/dL (6-20); Calcium 9.4 mg/dL (8.6-10.3); Carbon Dioxide 13 mEq/L (23-29); Chloride 91 mEq/L (98-107); Ethanol 21 mg/dL (Less than 10); Globulin 3.3 g/dL (2.4-3.5); Glucose 71 mg/dL (70-105); Osmolality,Calculated 284 (280-300); Potassium 4.5 mEq/L (3.5-5.1); Sodium 132 mEq/L (136-145); Total Protein 8.2 g/dL (6.4-8.9); Troponin I < 0.03 ng/mL (< 0.04); eGFR For African Americans 12 (> 60); eGFR For Non-African Americans 10 (> 60)
[2018-01-06 18:09] LABS: Bilirubin,Urine Moderate (Negative); Blood,Urine Moderate (Negative); Clarity,Urine Cloudy (Clear); Color,Urine Yellow (Yellow); Glucose,Urine (UA) Normal (Normal); Ketones,Urine 15 mg/dL (Negative); Leukocyte Esterase,Urine Trace (Negative); Nitrite,Urine Negative (Negative); PH,Urine 5.5 pH Units (5.0-8.0); Protein,Urine 100 mg/dL (Neg-Trace); Specific Gravity,Urine 1.024 (1.010-1.025); Urobilinogen,Urine Normal (Normal)
[2018-01-06 18:11] LABS: Squamous Epithelial Cell,Urine Many per lpf (None-Few); WBC,Urine 30-50 per hpf (0-3)
[2018-01-06] MEDS ORDERED: 0.9 % Sodium Chloride 1,000 ML IVC ONE ×2 (18:18→20:08)
[2018-01-06 18:21] LABS: Hyaline Casts,Urine Many per lpf (None-Few)
[2018-01-06 18:22] LABS: Bacteria,Urine Many per hpf (None-Few)
[2018-01-06 19:05] LABS: Barbiturate Screen,Urine Negative ng/mL (Cutoff=200); Benzodiazepines Screen,Urine Negative ng/mL (Cutoff=200); Cannabinoid Screen,Urine Negative ng/mL (Cutoff = 50); Cocaine Screen,Urine Negative ng/mL (Cutoff= 300); Opiate Screen,Urine Negative ng/mL (Cutoff=300); Phencyclidine Screen,Urine Negative ng/mL (Cutoff=25)
[2018-01-06 19:06] LABS: Creatine Kinase 1179 Units/L (30-223)
[2018-01-06 19:09] LABS: Amphetamine Screen,Urine Negative ng/mL (Cutoff=1000)
--- NOTE | 2018-01-06 20:23 | Emergency Department Note ---
Disposition Clinical Impression: Dehydration, DANIEL (acute kidney injury), Elevated CK Altered mental status Qualifiers: Altered mental status type: unspecified Qualified Code(s): R41.82 - Altered mental status, unspecified Disposition: Admitted As Inpatient Condition: Fair Time of Disposition: 20:22 General Adult HPI - General Chief complaint: ED Psychiatric Symptoms Stated complaint: confusion, AMS, 1A evaluation Time Seen by Provider: 01/06/18 16:31 Source: patient Mode of arrival: EMS Limitations: no limitations Nursing Notes Reviewed: Yes Vital Signs Reviewed: Yes - History of Present Illness HPI Narrative: Patient is a 57-year-old male with past medical history of COPD and alcohol use presents to the emergency Department by squad for altered mental status. According to EMS patient was [place] in the park after a police phone call was placed to suspicious activity of him walking around the park. EMS states the patient appeared to be altered not knowing what year it was they brought him in for evaluation. On arrival by squad the patient appears to be mumbling although he does speak in sentences as well. He states that he was walking on the park because normally he lives with his sister, however his sister has been arguing with her son and he could not stand it anymore so he left their home. He states that is why he is in the park. He denies any loss of consciousness, focal neurological deficits, fevers, cough, chest pain, shortness of breath, abdominal pain, urinary symptoms or diarrhea. Patient states last time use alcohol was 3 days ago. He does have a resting tremor, which he states is chronic and started after he weaned himself off percocet and ativan which he was taking for chronic pain. No history of strokes according to patient. Pain Scale: 10 - Related Data Allergies Allergy/AdvReac Type Severity Reaction Status Date / Time codeine AdvReac Itching Verified 01/06/18 21:05 All systems ED: reviewed and negative except as stated. Review of Systems: As Per HPI Constitutional: Denies: fever, chills Cardiovascular: Denies: chest pain, palpitations Respiratory: Denies: cough, dyspnea, wheezes Gastrointestinal: Denies: abdominal pain, nausea, vomiting Genitourinary: Denies: urgency, dysuria Musculoskeletal: Denies: back pain, neck pain Integumentary: Denies: rash, abrasion Neurological: Denies: headache, weakness, numbness, paresthesias, confusion, abnormal gait, vertigo Past Medical History - Past Medical History Attestation: Yes The following information was validated with the patient. Medical history: Reports: hypertension Surgical history: Reports: other Psychiatric history: Reports: anxiety, depression - Social History Smoking Status: Never smoker Smokeless Tobacco Status: No Alcohol use: Reports: occasionally Drug use: Reports: none Physical Exam Vital signs within normal limits. - General Limitations: no limitations, altered mental status, other (Patient does appear computerized, however he is alert and oriented 2, patient thinks it is 1997. He is sitting up in bed, alert, has a resting tremor of all extremities that appears intermittent.) General appearance: alert - Head Head exam: atraumatic, normocephalic, normal inspection - Eye Eye exam: Present: normal appearance, PERRL, EOMI - ENT ENT exam: normal exam, normal oropharynx, mucous membranes dry - Neck Neck exam: Present: normal inspection, full ROM, trachea midline - Chest Chest inspection: Present: normal inspection, symmetric chest wall rise - Respiratory Respiratory exam: Present: normal lung sounds bilaterally. Absent: respiratory distress, wheezes - Cardiovascular Cardiovascular exam: Present: regular rate, normal rhythm, normal heart sounds, +S1, +S2 - Abdominal Exam Abdominal exam: Present: soft, Non-Tender, normal bowel sounds - Extremities Exam Extremities exam: Present: normal inspection, full ROM, other (Patient does have what appears to be healing scabs on his bilateral lower extremities but may have been from a fall or some type of abrasion. No signs of cellulitis or edema.). Absent: tenderness - Back Exam Back exam: Present: normal inspection, full ROM. Absent: CVA tenderness (R), CVA tenderness (L) - Neurological Exam Neurological exam: Present: alert - Expanded Neurological Exam Patient oriented to: Present: person, place. Absent: time Speech: Present: fluid speech Cranial nerves: EOM function (II, III, IV, ): Normal, facial sensation (V): Normal, facial palsy (VII): Normal, gag reflex (IX): Normal, spinal accessory function (XI): Normal, tongue deviation (XII): Normal Cerebellar function: finger to nose: Normal, heel to [place]: Normal Cerebellar function: normal gait Motor strength - LUE: 5/5 Motor strength - RUE: 5/5 Motor strength - LLE: 5/5 Motor strength - RLE: 5/5 Other motor function: Patient does have a resting tremor of bilateral upper and lower extremities. This tremoring is intermittent. Upper motor neuron exam: pronator drift: Absent bilaterally Sensory exam upper extremity: light touch: Normal Sensory exam lower extremity: light touch: Normal DTR: bicep (L): 2+, bicep (R): 2+, patellar (L): 2+, patellar (R): 2+ Coma Scale Eye Opening: Spontaneous Coma Scale Motor Response: Obeys Commands Coma Scale Verbal Response: Confused Coma Scale Total: 14 - Psychiatric Psychiatric exam: Present: normal affect, normal mood - Skin Skin exam: Present: warm, dry, intact, normal color Course Course Narrative: Patient NIH stroke scale score is 0. Neurological exam is completely intact. Tested multiple times contact different phone numbers of the patient was providing me to get entire chest with the patient's family however this was unsuccessful as a phone numbers did not actually reach to any person. Plan this time is forming altered mental status workup of the patient which will include an EKG and head CT. We will also look for any signs of intoxication with a urine drug screen check an ethanol level given his alcohol use and his tremoring. - Reevaluation(s) Reevaluation #1: On reevaluation patient's mental status seems to be improving he has been receiving IV fluids. Still thinks that the year 1997. Lab work came back and showed an elevated creatinine at 5.0 which is new for this patient, his urine was also concerning showing blood as well as leukocyte esterase. CK was ordered to evaluate for rhabdomyolysis and this came back elevated greater than 1000. Discussed with the patient if he has experience any episodes of syncope or loss of consciousness in which she has remained on the floor for long appears of time the patient denies this. Patient received a second liter of IV fluids and will be admitted to the hospital for DANIEL, dehydration, altered mental status. Time: 21:13 Vital Signs Temperature 97.2 F L 01/06/18 16:27 Pulse Rate 100 01/06/18 16:27 Respiratory Rate 18 01/06/18 16:27 Blood Pressure 152/86 01/06/18 16:27 O2 Sat by Pulse Oximetry 96 01/06/18 16:27 Temperature 97.2 F L 01/06/18 16:27 Pulse Rate 90 01/06/18 20:33 Respiratory Rate 18 01/06/18 20:33 Blood Pressure 167/97 01/06/18 20:33 O2 Sat by Pulse Oximetry 100 01/06/18 20:33 Oxygen Delivery Oxygen Delivery Room Air Medical Decision Making - Medical Records Medical records reviewed: Yes I reviewed the patient's medical records. - Lab Data Lab results reviewed: Yes I reviewed the patient's lab results. Result diagrams: 01/06/18 17:18 01/06/18 17:18 Lab Results 01/06/18 01/06/18 01/06/18 Range/Units 17:18 17:18 17:18 WBC 11.2 H (4.3-11.1) K/mcL RBC 4.37 (4.19-5.50) M/mcL Hgb 14.3 (12.9-16.9) g/dL Hct 42.9 (37.5-50.1) % MCV 98.2 (83.0-100.0) fL MCH 32.7 (28.0-33.3) pg MCHC 33.3 (31.6-35.5) g/dL RDW 12.7 (11.5-14.5) % Plt Count 272 (140-400) K/mcL MPV 9.2 L (9.4-12.4) fL Immature Gran % 0.4 (0-4) % Seg Neutrophils % 60.8 % Lymphocytes % 27.4 % Monocytes % 10.8 % Eosinophils % 0.1 % Basophils % 0.5 % Neutrophils # 6.8 (1.6-8.9) K/mcL Lymphocytes # 3.1 (0.6-4.6) K/mcL Monocytes # 1.2 (0.0-1.3) K/mcL Eosinophils # 0.0 (0.0-0.6) K/mcL Basophils # 0.1 (0.0-0.2) K/mcL Sodium 132 L (136-145) mEq/L Potassium 4.5 (3.5-5.1) mEq/L Chloride 91 L (98-107) mEq/L Carbon Dioxide 13 L (23-29) mEq/L BUN 44 H (6-20) mg/dL Creatinine 5.79 H (0.70-1.30) mg/dL Est GFR ( Amer) 12 L (> 60) Est GFR (Non-Af Amer) 10 L (> 60) BUN/Creatinine Ratio 8 (6-26) Glucose 71 (70-105) mg/dL Calculated Osmolality 284 (280-300) Calcium 9.4 (8.6-10.3) mg/dL Total Bilirubin 0.8 (0.3-1.0) mg/dL Direct Bilirubin 0.2 (0.0-0.2) mg/dL Indirect Bilirubin 0.6 (0.0-1.2) mg/dL AST 37 (13-39) Units/L ALT 19 (7-52) Units/L Alkaline Phosphatase 77 (34-104) Units/L Creatine Kinase 1179 H (30-223) Units/L Troponin I < 0.03 (< 0.04) ng/mL Serum Total Protein 8.2 (6.4-8.9) g/dL Albumin 4.9 (3.5-5.7) g/dL Globulin 3.3 (2.4-3.5) g/dL Albumin/Globulin Ratio 1.5 (1.1-2.2) TSH 1.498 (0.340-5.600) mcIU/mL Urine Color (Yellow) Urine Clarity (Clear) Urine pH (5.0-8.0) pH Units Ur Specific [place] (1.010-1.025) Urine Protein (Neg-Trace) mg/dL Urine Glucose (UA) (Normal) mg/dL Urine Ketones (Negative) mg/dL Urine Blood (Negative) Urine Nitrite (Negative) Urine Bilirubin (Negative) Urine Urobilinogen (Normal) mg/dL Ur Leukocyte Esterase (Negative) Urine Microscopic RBC (0-3) per hpf Urine Microscopic WBC (0-3) per hpf Ur Squamous Epith Cells (None-Few) per lpf Urine Bacteria (None-Few) per hpf Hyaline Casts (None-Few) per lpf Ur Culture Indicated? (NO) Urine Opiates Screen (Npxuxm=345) ng/mL Ur Barbiturates Screen (Glpdml=056) ng/mL Ur Phencyclidine Scrn (Cutoff=25) ng/mL Ur Amphetamines Screen (Fvndxa=0800) ng/mL U Benzodiazepines Scrn (Fapyvc=736) ng/mL Urine Cocaine Screen (Cutoff= 300) ng/mL U Marijuana (THC) Screen (Cutoff = 50) ng/mL Ethyl Alcohol 21 H (Less than 10) mg/dL 01/06/18 01/06/18 Range/Units 17:49 17:49 WBC (4.3-11.1) K/mcL RBC (4.19-5.50) M/mcL Hgb (12.9-16.9) g/dL Hct (37.5-50.1) % MCV (83.0-100.0) fL MCH (28.0-33.3) pg MCHC (31.6-35.5) g/dL RDW (11.5-14.5) % Plt Count (140-400) K/mcL MPV (9.4-12.4) fL Immature Gran % (0-4) % Seg Neutrophils % % Lymphocytes % % Monocytes % % Eosinophils % % Basophils % % Neutrophils # (1.6-8.9) K/mcL Lymphocytes # (0.6-4.6) K/mcL Monocytes # (0.0-1.3) K/mcL Eosinophils # (0.0-0.6) K/mcL Basophils # (0.0-0.2) K/mcL Sodium (136-145) mEq/L Potassium (3.5-5.1) mEq/L Chloride (98-107) mEq/L Carbon Dioxide (23-29) mEq/L BUN (6-20) mg/dL Creatinine (0.70-1.30) mg/dL Est GFR ( Amer) (> 60) Est GFR (Non-Af Amer) (> 60) BUN/Creatinine Ratio (6-26) Glucose (70-105) mg/dL Calculated Osmolality (280-300) Calcium (8.6-10.3) mg/dL Total Bilirubin (0.3-1.0) mg/dL Direct Bilirubin (0.0-0.2) mg/dL Indirect Bilirubin (0.0-1.2) mg/dL AST (13-39) Units/L ALT (7-52) Units/L Alkaline Phosphatase (34-104) Units/L Creatine Kinase (30-223) Units/L Troponin I (< 0.04) ng/mL Serum Total Protein (6.4-8.9) g/dL Albumin (3.5-5.7) g/dL Globulin (2.4-3.5) g/dL Albumin/Globulin Ratio (1.1-2.2) TSH (0.340-5.600) mcIU/mL Urine Color Yellow (Yellow) Urine Clarity Cloudy A (Clear) Urine pH 5.5 (5.0-8.0) pH Units Ur Specific [place] 1.024 (1.010-1.025) Urine Protein 100 H (Neg-Trace) mg/dL Urine Glucose (UA) Normal (Normal) mg/dL Urine Ketones 15 H (Negative) mg/dL Urine Blood Moderate H (Negative) Urine Nitrite Negative (Negative) Urine Bilirubin Moderate H (Negative) Urine Urobilinogen Normal (Normal) mg/dL Ur Leukocyte Esterase Trace H (Negative) Urine Microscopic RBC 5-15 H (0-3) per hpf Urine Microscopic WBC 30-50 H (0-3) per hpf Ur Squamous Epith Cells Many H (None-Few) per lpf Urine Bacteria Many H (None-Few) per hpf Hyaline Casts Many H (None-Few) per lpf Ur Culture Indicated? NO. A (NO) Urine Opiates Screen Negative (Dahviq=265) ng/mL Ur Barbiturates Screen Negative (Yyoulm=049) ng/mL Ur Phencyclidine Scrn Negative (Cutoff=25) ng/mL Ur Amphetamines Screen Negative (Mxnowm=2901) ng/mL U Benzodiazepines Scrn Negative (Ucsmbr=025) ng/mL Urine Cocaine Screen Negative (Cutoff= 300) ng/mL U Marijuana (THC) Screen Negative (Cutoff = 50) ng/mL Ethyl Alcohol (Less than 10) mg/dL - Radiology Data Radiology results reviewed: Yes I reviewed the patient's radiology results. Chest X-Ray 01/06/18 16:35 IMPRESSION: No acute process. D/ / Morris Card MD / Morris Card MD Interpreting Provider: Morris Card MD Head CT 01/06/18 16:36 IMPRESSION: Stable CT brain with no acute intracranial abnormality. D/ / Aries Garrett MD / Aries Garrett MD Interpreting Provider: Aries Garrett MD - EKG Data EKG #1 EKG attestation: Yes I reviewed and interpreted this EKG. EKG results narrative: EKG done at 17:03 shows sinus rhythm at a rate of 90 bpm. Normal axis., OK is 164, QRS is 75, QT is 345 and QTc is 400 these are within normal limits. No signs of ST elevation, ST depression or Q waves present. No signs of ischemia.
[2018-01-06] MEDS ORDERED: Acetaminophen 325 MG TABLET PO PRN (22:14)
[2018-01-06] MEDS ORDERED: Naloxone 0.4 MG/ML INJ IVP PRN (22:14)
[2018-01-06] MEDS ORDERED: *HR* LORazepam 2 MG/ML VIAL IVP PRN ×3 (22:22)
--- NOTE | 2018-01-06 23:01 | Internal Med History&Physical ---
Date of Encounter: 01/06/18 Time of Encounter: 20:00 Internal Medicine - H&P: HPI Chief complaint: Altered mental status Admitted From: Home Plans for Post Hospital Care: Home History of present illness: Mr. Young is a 57 year old male sent to ER by police for altered mental status. Past medical history is significant for COPD, hypertension. Patient is awake alert but oriented 2 only when I see him. Not very sure how reliable the history is. ER physician tried to contact family but cannot get through. Patient lives with his sister but left sister's home since yesterday. [place] and was found wondering in park with confusion. Patient was sent to ER by police. Patient denies fever. He has mild nausea. Complain of whole-body ache. Denies headache, slurred speech, numbness/weakness, cough, shortness of breath, chest pain, diarrhea, or urination symptoms. In the emergency room, patient was found acute renal failure and elevated CK level. Head CT negative. Patient was given IV fluid and his mental status has improved. Patient was admitted for further management. Past Med Surg Social Fam HX - Past Medical History Medical history: hypertension Additional medical history: Pt states "Some doctor told me I had cancer, I told him I didnt and I left." Psychiatric history: anxiety, depression - Past Surgical History Surgical History: other Additional surgical history: Neck sx? - Social History Smoking Status: Never smoker Smokeless Tobacco Status: No Alcohol use: occasionally Drug use: none - Family History Brother Adopted: [place]: [place] Family Member Ethnicity: Non- Living Status: Still Living Hx Family Cardiac Disorders: Yes Hx Family Respiratory Disorders: Yes Hx Family Cancer: Yes Hx Family GI Disorders: Yes Internal Medicine - H&P: Meds ALPRAZolam [Xanax 1 MG Tablet] 1 mg PO TID PRN 01/06/18 [History] Albuterol Sulfate [Ventolin Hfa] 2 puff IH Q4H PRN 01/06/18 [History] Amlodipine Besylate 10 mg PO DAILY 01/06/18 [History] Budesonide/Formoterol 160/4.5 [Symbicort 160/4.5] 2 puff IH BIDR 01/06/18 [ History] Gabapentin [Neurontin] 800 mg PO Q6H 01/06/18 [History] Ibuprofen [Motrin] 400 mg PO BID PRN 01/06/18 [History] Ipratropium/Albuterol Neb [Duoneb] 3 ml IH Q6HR PRN 01/06/18 [History] Metoprolol Succinate [Toprol Xl] 75 mg PO DAILY 01/06/18 [History] Omeprazole [PriLOSEC] 40 mg PO DAILY 01/06/18 [History] Simvastatin [Zocor] 40 mg PO HS 01/06/18 [History] 3 Allergy/AdvReac Type Severity Reaction Status Date / Time codeine AdvReac Itching Verified 01/06/18 21:05 All Systems PM: A 10-system review of systems was performed and is negative for pertinent findings except as documented above in the HPI. - Constitutional Vitals: Temp Pulse Resp BP Pulse Ox 97.9 F 96 18 131/74 97 01/06/18 21:38 01/06/18 21:38 01/06/18 21:38 01/06/18 21:38 01/06/18 21:51 General appearance: Present: A&O X 2, no acute distress, answers questions appropriately - Head Head exam: Present: atraumatic, normocephalic - Eye Eye exam: Present: PERRL, conjuntiva pink, sclera anicteric Pupils: Present: PERRL - Neck Neck exam general surgery: Present: supple, trachea midline. Absent: lymphadenopathy - Respiratory Respiratory exam: Present: CTAB. Absent: accessory muscle use, rales, rhonchi, wheezes - Cardiovascular Cardiovascular exam: Present: RRR, +S1, +S2. Absent: diastolic murmur, gallop, rubs, systolic murmur - GI/Abdominal GI/Abdominal exam: Present: normal bowel sounds, soft, no peritoneal signs. Absent: distended, tenderness - Extremities Exam Extremities exam: Present: warm, radial pulses palpable and symmetrical. Absent : calf tenderness, cyanotic, pedal edema - Neurological Exam Neurological exam: Present: CN II-XII intact, motor sensory deficit (Right arm motor 5-/5, right LE 5-/5), oriented X3, no focal deficits. Absent: pronater drift, facial droop, speech deficit - Skin Skin exam: Present: dry, intact Internal Med - H&P Results - Labs CBC & Chem 7: 01/06/18 17:18 06/22/18 17:18 - Assessment and plan (1) Right sided weakness Current Visit: Yes Status: Acute Assessment and plan: Patient was found right arm and right leg mild weakness on physical exam. Patient said that he has this problem "for a while". Obviously he cannot tell the exact onset time. CT head negative. - We will order MRI to rule out CVA. - Before CVA is ruled out, place patient on stroke/TIA protocol which includes cardiac monitoring, antiplatelet, and NIHSS protocol. Not give statin because high CK level. - Echo and duplex carotid in a.m. (2) Rhabdomyolysis Current Visit: Yes Status: Acute Assessment and plan: Patient has a high CK level. Consider rhabdomyolysis. Will continue IV fluid and follow-up CK level in a.m. Qualifiers: Rhabdomyolysis type: non-traumatic Qualified Code(s): M62.82 - Rhabdomyolysis (3) Alcohol use Current Visit: Yes Status: Acute Assessment and plan: Patient said he took alcohol 3 days ago. However, his urine alcohol test is positive. Patient denies alcoholism but not sure if it is reliable.. - We will place patient on CIWA protocol. Continue closely monitoring. (4) DANIEL (acute kidney injury) Current Visit: Yes Status: Acute Assessment and plan: Patient has elevated creatinine level from baseline (1.17-5.79). Probably multiple factoral include dehydration, rhabdomyolysis. - Continue IV fluid, follow-up his renal function - US renal to rule out obstruction - Avoid nephrotoxic medications - Consider nephro consult if renal function does not improve after hydration (5) Altered mental state Current Visit: Yes Status: Acute Assessment and plan: Probably due to dehydration. Continue hydrate patient. MRI in AM as described above. Qualifiers: Altered mental status type: disorientation Qualified Code(s): R41.0 - Disorientation, unspecified (6) Dehydration Current Visit: Yes Status: Acute Assessment and plan: Management as above (7) DVT prophylaxis Current Visit: No Status: Acute Assessment and plan: Heparin subcutaneously (8) Essential hypertension Current Visit: No Status: Chronic Assessment and plan: BP is not high. Continue close monitoring. Hold BP medication before CVA is ruled out. (9) COPD (chronic obstructive pulmonary disease) Current Visit: Yes Status: Acute Assessment and plan: No wheezing. Continue Symbicort and DuoNeb when necessary. Qualifiers: COPD type: emphysema Emphysema type: unspecified Qualified Code(s): J43.9 - Emphysema, unspecified - Time Spent With Patient Total time spent is greater than 50% in coordination of care (as documented) at patient's floor/unit and/or counseling patient: 40 minutes Greater than 35 minutes
[2018-01-06] MEDS: Aspirin Enteric Coated 81 MG Tablet PO SCH (23:03)
[2018-01-06] MEDS: 0.9 % Sodium Chloride 1,000 ML IVC SCH (23:04)
[2018-01-07 05:29] LABS: Basophils % 0.5 %; Eosinophils # 0.1 K/mcL (0.0-0.6); Eosinophils % 0.7 %; Hematocrit 34.7 % (37.5-50.1); Immature Granulocytes % 0.4 % (0-4); Lymphocytes # 2.8 K/mcL (0.6-4.6); Lymphocytes % 38.3 %; Mean Corpuscular Hemoglobin 33.3 pg (28.0-33.3); Mean Platelet Volume 9.2 fL (9.4-12.4); Monocytes # 1.1 K/mcL (0.0-1.3); Monocytes % 15.6 %; Neutrophils # 3.3 K/mcL (1.6-8.9); Platelet Count 223 K/mcL (140-400); Red Blood Count 3.54 M/mcL (4.19-5.50); Red Cell Distribution Width 12.7 % (11.5-14.5); Segmented Neutrophils % 44.5 %
[2018-01-07 05:32] LABS: Hemoglobin 11.8 g/dL (12.9-16.9)
[2018-01-07 05:36] LABS: INR 1.1; Prothrombin Time 11.3 Seconds (9.4-12.1)
[2018-01-07 05:46] LABS: Chol/HDL Ratio 5.3 (0-4.9)
[2018-01-07 05:47] LABS: Calcium 8.1 mg/dL (8.6-10.3); Magnesium 2.6 mg/dL (1.6-2.6); Phosphorous 4.5 mg/dL (2.7-4.5); Potassium 3.8 mEq/L (3.5-5.1)
[2018-01-07] MEDS: *HR* Heparin 5,000 UNIT/ML VIAL SQ SCH ×2 (05:52→17:15)
--- NOTE | 2018-01-07 09:25 | Internal Med Progress Note ---
Date of Encounter: 01/07/18 Time of Encounter: 09:20 - Assessment and plan (1) Altered mental state Current Visit: Yes Status: Acute Assessment and plan: Multifactorial metabolic encephalopathy versus ischemic versus alcohol abuse. Slight alcohol elevation therefore will also watch for alcohol withdrawal. Continue CIWA protocol . CT brain with no acute finding. MRI brain and carotid ultrasound ordered. Continue supportive treatment with IV fluid, Neurochecks. Fall risk, seizure and aspiration prevention. Consult PT, OT and speech evaluation. Consult social welfare clerk. Will consult neurologist if needed. Fasting lipid profile ordered. Continue Baby aspirin. Qualifiers: Altered mental status type: disorientation Qualified Code(s): R41.0 - Disorientation, unspecified (2) Essential hypertension Current Visit: No Status: Chronic Assessment and plan: Low normal blood pressure. Continue IV fluid. Unknown home medicine. Pharmacist is working to contact pharmacy about routine home medicine as patient is unable to provide that information. (3) Dehydration Current Visit: Yes Status: Acute Assessment and plan: Continue IV fluid. With a strict I&O's (4) DANIEL (acute kidney injury) Current Visit: Yes Status: Acute Assessment and plan: Most likely prerenal due to underlying dehydration. Trending down creatinine level. Continue IV fluid with a strict I&O's. Renal ultrasound ordered but not done yet. Avoid nephrotoxic drug. Will consult wardrobe supervisor if needed. Monitor BMP. (5) Right sided weakness Current Visit: Yes Status: Acute Assessment and plan: On my examination motor 5 x 5 in all [address] head negative. MRI brain ordered to rule out underlying CVA. PT OT consulted. Not give statin because high CK level. - Echo and duplex carotid ordered. (6) Rhabdomyolysis Current Visit: Yes Status: Acute Assessment and plan: Mild. Trending down CPK level. Continue supportive treatment with IV fluid. Qualifiers: Rhabdomyolysis type: non-traumatic Qualified Code(s): M62.82 - Rhabdomyolysis (7) Alcohol use Current Visit: Yes Status: Acute Assessment and plan: Patient said he took alcohol 3 days ago. However, his urine alcohol test is positive. Patient denies alcoholism but not sure if it is reliable.. Continue CIWA protocol. (8) COPD (chronic obstructive pulmonary disease) Current Visit: Yes Status: Acute Assessment and plan: Does not appear in acute exacerbation. Continue home medicine Qualifiers: COPD type: emphysema Emphysema type: unspecified Qualified Code(s): J43.9 - Emphysema, unspecified (9) DVT prophylaxis Current Visit: No Status: Acute Assessment and plan: Heparin subcutaneously, SCDs - Time Spent With Patient Total time spent is greater than 50% in coordination of care (as documented) at patient's floor/unit and/or counseling patient: 25 - 35 minutes - Subjective Interval history: Patient is alert awake oriented to person and somewhat place but not much to time. Slurred his speech little hard to understand. Complained of feeling tired and fatigued and generalized weakness. Patient denies fever nausea vomiting headache chest pain short of breath, diarrhea. Urine with dark discoloration. Review the lab with trending down creatinine and CPK. - Constitutional Vitals: Temp Pulse Resp BP Pulse Ox 97.8 F 78 20 96/62 97 01/07/18 07:29 01/07/18 07:29 01/07/18 07:29 01/07/18 07:29 01/07/18 07:29 General appearance: Present: A&O X 2, no acute distress, answers questions appropriately Exam: General appearance: No acute distress, A 2 & oriented to person and somewhat place but not much to time. Appear dehydrated Eye exam: EOMI, PERRLA ENT exam: Dry oral mucosa Neck nontender, supple Respiratory exam: Clear to auscultation bilaterally Cardiovascular exam: Regular rate and rhythm, no systolic murmur Abdominal exam: Soft, nontender, nondistended, positive bowel sounds Extremities exam: No calf tenderness, no pedal edema Present: Few linear superficial healing laceration over left knee but no deep wound-will consider knee x-ray Neurological exam: CN II-XII intact, motor 5 x 5 in all 4 extremities, No facial droop. Slurred speech. Declined to walk as feeling too weak to get up Internal Medicine: Result - Labs CBC & Chem 7: 01/07/18 04:32 01/07/18 04:32 Labs: Short CBC 01/07/18 Range/Units 04:32 WBC 7.3 (4.3-11.1) K/mcL Hgb 11.8 L D (12.9-16.9) g/dL Hct 34.7 L (37.5-50.1) % Plt Count 223 (140-400) K/mcL Neutrophils # 3.3 (1.6-8.9) K/mcL BMP 01/07/18 04:32 Sodium 139 Potassium 3.8 Chloride 107 Carbon Dioxide 18 L BUN 40 H Creatinine 3.66 H Glucose 82 Calcium 8.1 L - ABG Interpretation ABG results: PT/INR, D-dimer PT 11.3 Seconds (9.4-12.1) 01/07/18 04:32 Consult Discharge Plan - Plan Referrals: NONE,PCP [Primary Care Provider] -
[2018-01-07] MEDS: ALPRAZolam 1 MG TABLET PO PRN (09:39)
[2018-01-07] MEDS: Aspirin Enteric Coated 81 MG Tablet PO SCH (09:39)
[2018-01-07] MEDS: 0.9 % Sodium Chloride 1,000 ML IVC SCH (09:41)
[2018-01-07 10:34] LABS: Sodium, Urine 28.7 mEq/L
[2018-01-07] MEDS: Budesonide/Formoterol 160/4.5 MDI IH SCH ×2 (10:50→19:51)
[2018-01-07] MEDS: Thiamine (B-1) 200 MG/2 ML VIAL IM SCH (12:36)
[2018-01-08] MEDS: ALPRAZolam 1 MG TABLET PO PRN ×3 (00:12→17:35)
[2018-01-08 04:10] LABS: Chol/HDL Ratio 5.1 (0-4.9)
[2018-01-08] MEDS: *HR* Heparin 5,000 UNIT/ML VIAL SQ SCH (05:39)
[2018-01-08 09:04] LABS: Basophils % 0.6 %; Eosinophils # 0.1 K/mcL (0.0-0.6); Hematocrit 37.4 % (37.5-50.1); Hemoglobin 12.4 g/dL (12.9-16.9); Immature Granulocytes % 0.2 % (0-4); Lymphocytes # 1.6 K/mcL (0.6-4.6); Lymphocytes % 30.7 %; Mean Corpuscular HGB Conc 33.2 g/dL (31.6-35.5); Mean Corpuscular Volume 99.5 fL (83.0-100.0); Mean Platelet Volume 9.4 fL (9.4-12.4); Monocytes # 0.6 K/mcL (0.0-1.3); Monocytes % 12.4 %; Neutrophils # 2.8 K/mcL (1.6-8.9); Platelet Count 203 K/mcL (140-400); Red Blood Count 3.76 M/mcL (4.19-5.50); Red Cell Distribution Width 12.7 % (11.5-14.5); Segmented Neutrophils % 55.1 %
[2018-01-08 09:20] LABS: BUN/Creatinine Ratio 21 (6-26); Blood Urea Nitrogen 22 mg/dL (6-20); Calcium 8.7 mg/dL (8.6-10.3); Carbon Dioxide 24 mEq/L (23-29); Chloride 110 mEq/L (98-107); Creatine Kinase 584 Units/L (30-223); Glucose 80 mg/dL (70-105); Osmolality,Calculated 296 (280-300); Potassium 3.7 mEq/L (3.5-5.1); Sodium 142 mEq/L (136-145); eGFR For African Americans > 60 (> 60); eGFR For Non-African Americans > 60 (> 60)
[2018-01-08] MEDS: Aspirin Enteric Coated 81 MG Tablet PO SCH (09:27)
[2018-01-08] MEDS: amLODIPine 5 MG TABLET PO SCH (11:42)
[2018-01-08] MEDS: Thiamine (B-1) 200 MG/2 ML VIAL IM SCH (11:42)
[2018-01-08] MEDS: Budesonide/Formoterol 160/4.5 MDI IH SCH ×2 (11:58→20:29)
--- NOTE | 2018-01-08 12:15 | Nephrology Consult Note ---
Date of Encounter: 01/08/18 Time of Encounter: 12:11 Assessment and Plan (1) DANIEL (acute kidney injury) Current Visit: Yes Status: Acute The patient had acute kidney injury with a creatinine of 5 upon admission. At the time my evaluation his creatinine was down to 1.0. Review of his previous labs revealed an EGFR that is greater than 60 so patient appears to be at his baseline. Patient's urinalysis was abnormal but appears to be a contaminant. I recommend repeating his urinalysis to see if he has a urinary tract infection. Patient renal ultrasound has mild perinephric fluid that could be a sign of infection versus other. It is not appear to be affecting his kidney function as his renal failure has resolved. I would recommend repeat renal ultrasound once his other issues have resolved and if this persists he may need a CT scan of his abdomen to evaluate if there truly is fluid around his kidney and if it is characterize the nature of the fluid. (2) Altered mental state Current Visit: Yes Status: Acute We will defer to primary care team. Qualifiers: Altered mental status type: disorientation Qualified Code(s): R41.0 - Disorientation, unspecified (3) Abnormal renal ultrasound Current Visit: Yes Status: Acute Once his urinalysis is clear I recommend repeating the renal ultrasound and if this is still abnormal I recommend a CT scan of his abdomen. (4) Rhabdomyolysis Current Visit: Yes Status: Acute Continue with hydration his CPK is decreasing. Qualifiers: Rhabdomyolysis type: non-traumatic Qualified Code(s): M62.82 - Rhabdomyolysis History of Present Illness - Reason for Consult Consult date: 01/08/18 Acute Kidney Injury - Chief Complaint DANIEL - History of Present Illness Mr. Young is a 57-year-old gentleman who presented to the hospital under the custody of the police after he was found roaming. For further details please refer to the admission H&P. At the time my evaluation the patient is denied pain and thinks he may have been dehydrated upon admission. He states he thinks his kidneys were bad in the past after he was electrocuted. He did not provide further information. Other information was obtained from the patient's electronic medical record. The patient denies chest pain, shortness of breath, nausea, diarrhea, or rashes. Past Med Surg Social Fam HX - Past Medical History Medical history: hypertension Additional medical history: Pt states "Some doctor told me I had cancer, I told him I didnt and I left." Psychiatric history: anxiety, depression - Past Surgical History Surgical History: other Additional surgical history: Neck sx? - Social History Smoking Status: Never smoker Smokeless Tobacco Status: No Alcohol use: occasionally Drug use: none - Family History Brother Adopted: [place]: [place] Family Member Ethnicity: Non- Living Status: Still Living Hx Family Cardiac Disorders: Yes Hx Family Respiratory Disorders: Yes Hx Family Cancer: Yes Hx Family GI Disorders: Yes Medications and Allergies ALPRAZolam [Xanax 1 MG Tablet] 1 mg PO TID PRN 01/06/18 [History] Albuterol Sulfate [Ventolin Hfa] 2 puff IH Q4H PRN 01/06/18 [History] Amlodipine Besylate 10 mg PO DAILY 01/06/18 [History] Budesonide/Formoterol 160/4.5 [Symbicort 160/4.5] 2 puff IH BIDR 01/06/18 [ History] Gabapentin [Neurontin] 800 mg PO Q6H 01/06/18 [History] Ibuprofen [Motrin] 400 mg PO BID PRN 01/06/18 [History] Ipratropium/Albuterol Neb [Duoneb] 3 ml IH Q6HR PRN 01/06/18 [History] Metoprolol Succinate [Toprol Xl] 75 mg PO DAILY 01/06/18 [History] Omeprazole [PriLOSEC] 40 mg PO DAILY 01/06/18 [History] Simvastatin [Zocor] 40 mg PO HS 01/06/18 [History] 3 Allergy/AdvReac Type Severity Reaction Status Date / Time codeine AdvReac Itching Verified 01/06/18 21:05 Review of Systems All Systems: reviewed and no additional remarkable complaints except as stated ( As documented in history of present illness.) Exam - Vital Signs Vital signs: Initial Vital Signs Temp Pulse Resp BP Pulse Ox 97.2 F L 100 18 152/86 96 01/06/18 16:27 01/06/18 16:27 01/06/18 16:27 01/06/18 16:27 01/06/18 16:27 Vital Signs - Last 8 Hours Temp Pulse Resp BP Pulse Ox 01/08/18 11:59 18 97 01/08/18 11:37 98.2 F 75 18 159/87 97 01/08/18 07:28 98.1 F 78 18 156/91 98 01/08/18 05:19 98.6 F 84 18 149/91 97 Intake and Output 01/07/18 01/08/18 01/08/18 23:59 07:59 15:59 Intake Total 240 / 240 360 / 360 Balance 240 / 240 360 / 360 Intake: Oral 240 / 240 360 / 360 Other: Meal Dinner Breakfast Percent of Meal Consumed 100% 100% # Voids 1 # Bowel Movements 0 2 Weight 101.2 kg Blood Glucose* 120 70 87 Patient Weight 01/08/18 23:59 Weight 101.2 kg - General Appearance General appearance: well-developed, well-nourished EENT: ATNC Respiratory: course breath sounds Cardiology: no edema, regular rate Gastrointestinal: no tenderness Integumentary: warm and dry Musculoskeletal: no cyanosis Psychiatric: mood/affect appropriate Results - Lab Results 01/08/18 07:58 01/08/18 07:58 Most recent lab results Calcium 8.7 mg/dL (8.6-10.3) 01/08/18 07:58 Phosphorus 4.5 mg/dL (2.7-4.5) 01/07/18 04:32 Magnesium 2.6 mg/dL (1.6-2.6) 01/07/18 04:32 Urine Creatinine 117 mg/dL 01/07/18 10:00 Urine Sodium 28.7 mEq/L 01/07/18 10:00 Consult Discharge Plan - Plan Referrals: NONE,PCP [Primary Care Provider] -
--- NOTE | 2018-01-08 14:14 | Internal Med Progress Note ---
Date of Encounter: 01/08/18 Time of Encounter: 14:10 - Assessment and plan (1) Altered mental state Current Visit: Yes Status: Acute Assessment and plan: better mentation still ? conused slight. unknown baseline mental status. Multifactorial metabolic encephalopathy versus ischemic versus alcohol abuse. Slight alcohol elevation therefore started CIWA protocol . CT brain with no acute finding. MRI brain and carotid ultrasound with no acute. Consulted PT , OT and speech evaluation and elementary [employer] social worker for d/c plan but not seen due to weekend. plan to d/c home tomrrow if continue to improve. Continue Baby aspirin Qualifiers: Altered mental status type: disorientation Qualified Code(s): R41.0 - Disorientation, unspecified (2) Essential hypertension Current Visit: No Status: Chronic Assessment and plan: initially low BP but now high therefore resuming home meds. BP monitoring (3) Dehydration Current Visit: Yes Status: Acute Assessment and plan: resolving. encourage po intake (4) DANIEL (acute kidney injury) Current Visit: Yes Status: Acute Assessment and plan: Most likely prerenal due to underlying dehydration. Trending down creatinine level to normal cr level. renal USG abnorml therefore consulted tube repairer who advised repeat U/A and USG once acute illness better. may consider CT if needed. (5) Right sided weakness Current Visit: Yes Status: Acute Assessment and plan: On my examination motor 5 x 5 in all [address] /MRIhead negative. as per pt he has slight right side weakness chronically. PT OT consulted. Not give statin because high CK level. - Echo and duplex carotid with no acute finding. (6) Rhabdomyolysis Current Visit: Yes Status: Acute Assessment and plan: Mild. Trending down CPK level. monitor Qualifiers: Rhabdomyolysis type: non-traumatic Qualified Code(s): M62.82 - Rhabdomyolysis (7) Alcohol use Current Visit: Yes Status: Acute Assessment and plan: not in withdrawal now. stopped CIWA protocol. continue MVI, educated about abstain. (8) COPD (chronic obstructive pulmonary disease) Current Visit: Yes Status: Acute Assessment and plan: Does not appear in acute exacerbation. Continue home medicine Qualifiers: COPD type: emphysema Emphysema type: unspecified Qualified Code(s): J43.9 - Emphysema, unspecified (9) DVT prophylaxis Current Visit: No Status: Acute Assessment and plan: SCDs, early ambulation - Time Spent With Patient Total time spent is greater than 50% in coordination of care (as documented) at patient's floor/unit and/or counseling patient: - Subjective Interval history: Patient is alert awake oriented to person and somewhat place but not much to time. better speech but still not very clear but understandable. better the feeling tired and fatigued and generalized weakness. Patient denies fever nausea vomiting chest pain short of breath, diarrhea. Urine clearing up . Review the lab with trending down creatinine and CPK. - Constitutional Vitals: Temp Pulse Resp BP Pulse Ox 98.2 F 75 18 159/87 97 01/08/18 11:37 01/08/18 11:37 01/08/18 11:59 01/08/18 11:37 01/08/18 11:59 General appearance: Present: A&O X 2, no acute distress, answers questions appropriately Exam: General appearance: No acute distress, A&O X 3 Head exam: Atraumatic Eye exam: EOMI, PERRLA ENT exam: Moist oral mucosa Neck nontender, supple Respiratory exam: Clear to auscultation bilaterally Cardiovascular exam: Regular rate and rhythm, no systolic murmur Abdominal exam: Soft, nontender, nondistended, positive bowel sounds Extremities exam: No calf tenderness, no pedal edema Present: -Healing scab over left knee-x-ray withn no acute finding Neurological exam: Alert, awake, oriented 3, CN II-XII intact, no focal deficits. No facial droop. Still slurred speech but better. Normal gait. Romberg sign negative Internal Medicine: Result - Labs CBC & Chem 7: 01/08/18 07:58 01/08/18 07:58 Labs: Short CBC 01/08/18 Range/Units 07:58 WBC 5.1 (4.3-11.1) K/mcL Hgb 12.4 L (12.9-16.9) g/dL Hct 37.4 L (37.5-50.1) % Plt Count 203 (140-400) K/mcL Neutrophils # 2.8 (1.6-8.9) K/mcL BMP 01/08/18 07:58 Sodium 142 Potassium 3.7 Chloride 110 H Carbon Dioxide 24 BUN 22 H Creatinine 1.05 Glucose 80 Calcium 8.7 - ABG Interpretation ABG results: PT/INR, D-dimer PT 11.3 Seconds (9.4-12.1) 01/07/18 04:32 - Impressions Impressions Knee X-Ray 01/07/18 09:28 IMPRESSION: 1. No acute osseous abnormality. 2. Mild medial and patellofemoral compartment osteoarthritis. D/ / 01/07/2018 11:01:31 Dameon Kohli MD / [facility] Interpreting Provider: Dameon Kohli MD - VTE Documentation of Mechanical Device: Intermittent pneumatic compression device Consult Discharge Plan - Plan Referrals: NONE,PCP [Primary Care Provider] -
[2018-01-08] MEDS: Gabapentin 400 MG CAPSULE PO SCH ×2 (14:30→20:48)
[2018-01-08 19:00] LABS: Bilirubin,Urine Negative (Negative); Blood,Urine Negative (Negative); Clarity,Urine Clear (Clear); Color,Urine Yellow (Yellow); Glucose,Urine (UA) Normal (Normal); Ketones,Urine Trace mg/dL (Negative); Leukocyte Esterase,Urine Negative (Negative); Nitrite,Urine Negative (Negative); Protein,Urine Trace mg/dL (Neg-Trace); Specific Gravity,Urine 1.028 (1.010-1.025); Urobilinogen,Urine Normal (Normal)
[2018-01-08 19:02] LABS: Bacteria,Urine None Seen per hpf (None-Few); Hyaline Casts,Urine None Seen per lpf (None-Few); RBC,Urine 0-3 per hpf (0-3); Squamous Epithelial Cell,Urine Moderate per lpf (None-Few); WBC,Urine 0-3 per hpf (0-3)
[2018-01-09] MEDS: ALPRAZolam 1 MG TABLET PO PRN ×2 (01:06→10:47)
[2018-01-09] MEDS: Budesonide/Formoterol 160/4.5 MDI IH SCH (07:37)
[2018-01-09] MEDS: Aspirin Enteric Coated 81 MG Tablet PO SCH (08:47)
[2018-01-09] MEDS: Gabapentin 400 MG CAPSULE PO SCH ×2 (08:48→15:04)
[2018-01-09] MEDS: amLODIPine 5 MG TABLET PO SCH (08:48)
[2018-01-09] MEDS ORDERED: Folic Acid 1 MG TABLET PO SCH (09:00)
[2018-01-09] MEDS ORDERED: Thiamine (B-1) 100 MG TABLET PO SCH (09:00)
--- NOTE | 2018-01-09 11:17 | Discharge Summary ---
- NOTES TO OUTPATIENT PROVIDER Notes to Outpatient Provider: f/u with spar finisher in 4 weeks. f/u with speech therapist on opd bassis as recommended. f/u with PCP within 5-7 days- BP monitoring, CPK check, restart statin when appropriate Date of Encounter: 01/09/18 Time of Encounter: 10:54 - Discharge Diagnosis (1) Altered mental state Priority: Primary Status: Acute Assessment and Plan: almost back to baseline mentation. ruled out CVA. most likely alcohol related . CT brain with no acute finding. MRI brain and carotid ultrasound with no acute. Consulted PT and recommended for cane and speech evaluation done and recommended to follow outpt for his chronic intermittent speech problem. clinical social worker for d/c plan and found okay to discharge patient home. Patient's sister will come to pick him up Qualifiers: Altered mental status type: disorientation Qualified Code(s): R41.0 - Disorientation, unspecified (2) Essential hypertension Priority: Primary Status: Chronic Assessment and Plan: Better controlled blood pressure. resumed home med (3) DANIEL (acute kidney injury) Priority: Primary Status: Acute Assessment and Plan: Most likely prerenal due to underlying dehydration. Trending down creatinine level to normal cr level. renal USG abnorml therefore consulted spar finisher who advised repeat U/A . repeat urine analysis was negative therefore I talked to her spar finisher who is okay to discharge patient home with instruction to follow spar finisher in 4 weeks and he will arrange to repeat ultrasound. (4) Rhabdomyolysis Priority: Primary Status: Acute Assessment and Plan: Mild. Trending down CPK level. Advised to maintain good hydration. Follow-up with PCP for possible CPK repeat. Advised to hold statin until CPK normal or as per PCP advice Qualifiers: Rhabdomyolysis type: non-traumatic Qualified Code(s): M62.82 - Rhabdomyolysis (5) Right sided weakness Priority: Secondary Status: Acute Assessment and Plan: Juan Pablo is mild right-sided weakness but On my examination motor 5 x 5 in [address] /MRIhead negative. as per pt he has slight right side weakness chronically therefore PT consulted and PT recommended cane otherwise okay to discharge home. - Echo and duplex carotid with no acute finding. (6) Alcohol use Priority: Secondary Status: Acute Assessment and Plan: not in acute withdrawal now. continue MVI, educated about abstain. (7) COPD (chronic obstructive pulmonary disease) Priority: Secondary Status: Acute Assessment and Plan: Does not appear in acute exacerbation. Continue home medicine Qualifiers: COPD type: emphysema Emphysema type: unspecified Qualified Code(s): J43.9 - Emphysema, unspecified Hospital course: Mr. Young is a 57 year old male patient got admitted for altered sensorium and found to be in rhabdomyolysis and AK eye. After conservative treatment and IV fluid patient is started to improve. Compliance Engineer was consulted for rhabdomyolysis and abnormal ultrasound. Repeat urine analysis with no infection therefore spar finisher okay to discharge patient home with follow-up appointment 4 weeks in his office to repeat ultrasound. CVA ruled out after finding MRI, echocardiogram and carotid ultrasound negative. At the time of discharge patient is back to his baseline, ambulating independently, tolerating oral diet with a stable vitals. Please see details in diagnosis part of the discharge summary. Discharge discussed with: patient, nurse - Time Spent with Patient Total time spent providing and/or coordinating discharge services: - Discharge Medications Home Medications: ALPRAZolam [Xanax 1 MG Tablet] 1 mg PO TID PRN 01/06/18 [History] Albuterol Sulfate [Ventolin Hfa] 2 puff IH Q4H PRN 01/06/18 [History] Amlodipine Besylate 10 mg PO DAILY 01/06/18 [History] Budesonide/Formoterol 160/4.5 [Symbicort 160/4.5] 2 puff IH BIDR 01/06/18 [ History] Gabapentin [Neurontin] 800 mg PO Q6H 01/06/18 [History] Ibuprofen [Motrin] 400 mg PO BID PRN 01/06/18 [History] Ipratropium/Albuterol Neb [Duoneb] 3 ml IH Q6HR PRN 01/06/18 [History] Metoprolol Succinate [Toprol Xl] 75 mg PO DAILY 01/06/18 [History] Omeprazole [PriLOSEC] 40 mg PO DAILY 01/06/18 [History] Simvastatin [Zocor] 40 mg PO HS 01/06/18 [History] Allergies/Adverse Reactions: 3 Allergy/AdvReac Type Severity Reaction Status Date / Time codeine AdvReac Itching Verified 01/06/18 21:05 Date of admission: 01/06/18 22:14 Primary care physician: Tal Braden MD Consults: 01/06/18 22:22 Consult to Movie Theater Usher [CONS] Routine Reason for SW Consult: Hx of alcoholism, living situation with sister may not be able to return, decreased support system. 01/07/18 09:35 Consult to Speech Therapy [CONS] Routine Comment: Evaluate, develop and implement POC Reason for Consult: Slurred speech Call Completed: No 01/08/18 07:31 Consult to Nephrology [CONS] Routine Consulting Provider: Kidney Maya/BETTY/PATT/MULUGETA Reason for Consult: DANIEL Call Completed: Yes - Constitutional Vitals: Temp Pulse Resp BP Pulse Ox 97.8 F 71 18 154/100 98 01/09/18 07:39 01/09/18 09:46 01/09/18 07:39 01/09/18 09:46 01/09/18 09:46 General appearance: Present: A&O X 2, no acute distress, answers questions appropriately Exam: General appearance: No acute distress, A&O X 3 Head exam: Atraumatic Eye exam: EOMI, PERRLA ENT exam: Moist oral mucosa Neck nontender, supple Respiratory exam: Clear to auscultation bilaterally Cardiovascular exam: Regular rate and rhythm, no systolic murmur Abdominal exam: Soft, nontender, nondistended, positive bowel sounds Extremities exam: No calf tenderness, no pedal edema Present: Skin-no rash, warm, dry, intact Neurological exam: Alert, awake, oriented 3, CN II-XII intact, no focal deficits. No facial droop. Normal speech. Normal gait. - Patient Status Disposition: Home, Self-Care Condition: Good Overall status at discharge: patient is back to baseline - Discharge Instructions Instructions: Acute Kidney Injury (DC), Altered Mental Status (GEN) Follow Up With: Asia Blancas [employer] SET UP TECHNICIAN [Advanced Practice Nurse] - 01/16/18 1:00 pm - Diet and Activity Activity: as per physical therapy Diet: low fat, low cholesterol, low salt diet - VTE Documentation of Mechanical Device: Intermittent pneumatic compression device
[2018-01-09] MEDS ORDERED: amLODIPine 5 MG TABLET PO ONE (11:38)
[2018-01-09 12:08] VITALS: BP 134/92
--- NOTE | 2018-01-09 16:00 | Nephrology Progress Note ---
Date of Encounter: 01/09/18 Time of Encounter: 15:58 - Assessment and Plan (1) DANIEL (acute kidney injury) Current Visit: Yes Status: Acute The patient has acute kidney injury that has resolved. He has no proteinuria on his urinalysis. He has an abnormal renal ultrasound of unclear etiology with a small amount of fluid around the kidney. I recommend repeating the renal ultrasound in 3-6 weeks. If the fluid remains consider a CT scan otherwise if it resolves and if his renal function remains normal he can follow- up at the discretion of his primary care provider. (2) Altered mental state Current Visit: Yes Status: Acute Qualifiers: Altered mental status type: disorientation Qualified Code(s): R41.0 - Disorientation, unspecified (3) Abnormal renal ultrasound Current Visit: Yes Status: Acute (4) Rhabdomyolysis Current Visit: Yes Status: Acute Qualifiers: Rhabdomyolysis type: non-traumatic Qualified Code(s): M62.82 - Rhabdomyolysis Subjective Principal diagnosis: DANIEL Interval history: The patient was seen he has no new complaints. Objective - Vital Signs Vital signs: Vital Signs Temp Pulse Resp BP Pulse Ox 01/09/18 12:07 134/92 01/09/18 11:22 97.7 F 72 18 159/96 98 01/09/18 09:46 71 154/100 98 01/09/18 07:39 97.8 F 73 18 170/116 97 01/09/18 07:37 16 98 01/09/18 04:20 97.9 F 68 18 154/92 99 01/08/18 23:49 98.2 F 71 17 131/81 98 01/08/18 20:29 18 96 01/08/18 19:58 98.1 F 67 18 143/90 96 01/08/18 16:14 97.9 F 67 16 152/99 98 Intake and Output 01/08/18 01/09/18 01/09/18 23:59 07:59 15:59 Intake Total 240 / 240 720 / 720 Output Total 200 / 200 200 / 200 Balance 40 / 40 -200 / -200 720 / 720 Intake: Oral 240 / 240 720 / 720 Output: Urine 200 / 200 200 / 200 Other: Meal Dinner Lunch Percent of Meal Consumed 100% 100% # Bowel Movements 1 Blood Glucose* 102 80 110 - General Appearance General appearance: Present: well-developed, well-nourished EENT: Present: ATNC Integumentary: Present: warm and dry Neurologic: Present: alert and oriented x3 Psychiatric: Present: mood/affect appropriate - Lab 01/08/18 07:58 01/08/18 07:58 Most recent lab results Calcium 8.7 mg/dL (8.6-10.3) 01/08/18 07:58 Phosphorus 4.5 mg/dL (2.7-4.5) 01/07/18 04:32 Magnesium 2.6 mg/dL (1.6-2.6) 01/07/18 04:32 Urine Creatinine 117 mg/dL 01/07/18 10:00 Urine Sodium 28.7 mEq/L 01/07/18 10:00 - VTE Documentation of Mechanical Device: Intermittent pneumatic compression device Consult Discharge Plan - Plan Instructions: Acute Kidney Injury (DC), Altered Mental Status (GEN) Referrals: Asia Blancas CNP [Advanced Practice Nurse] - 01/16/18 1:00 pm Prescriptions: Folic Acid 1 mg PO DAILY #30 tablet Thiamine (B-1) [Vitamin B-1] 100 mg PO DAILY #30 tablet
--- NOTE | 2018-01-09 16:22 | Electrocardiograph Report ---
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
[2018-01-10] MEDS ORDERED: amLODIPine 5 MG TABLET PO SCH (09:00)
[2018-01-10] MEDS ORDERED: amLODIPine 5 MG TABLET PO ONE (10:40)
--- NOTE | 2018-01-10 16:44 | Electrocardiograph Report ---
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
== END 2018-01-09 16:45 | disposition home or self-care (01) | DRG 683 ==
LOC: 2ANU 16:24 → EMEROO 16:24 → 2ANU 21:08
PROVIDERS: ADMIT Internal Medicine; ATTEND Internal Medicine

== ENCOUNTER 2019-08-26 16:08 | Observation (INO) ==
[2019-08-26] MEDS ORDERED: Ipratropium/Albuterol Neb 3 ML IH ONE (16:21)
[2019-08-26] MEDS ORDERED: methylPREDNISolone 125 MG/2 ML VIAL IVP ONE (16:21)
[2019-08-26] MEDS ORDERED: Azithromycin 500 MG in D5% in Water 250 ML IVPB ONE (16:23)
[2019-08-26 16:38] LABS: Basophils % 0.7 %; Eosinophils # 0.2 K/mcL (0.0-0.6); Eosinophils % 2.5 %; Hematocrit 48.3 % (37.5-50.1); Hemoglobin 16.6 g/dL (12.9-16.9); Immature Granulocytes % 1.2 % (0-4); Lymphocytes # 1.5 K/mcL (0.6-4.6); Mean Corpuscular HGB Conc 34.4 g/dL (31.6-35.5); Mean Corpuscular Hemoglobin 33.1 pg (28.0-33.3); Mean Corpuscular Volume 96.4 fL (83.0-100.0); Mean Platelet Volume 8.6 fL (9.4-12.4); Monocytes # 0.8 K/mcL (0.0-1.3); Monocytes % 12.3 %; Neutrophils # 3.6 K/mcL (1.6-8.9); Platelet Count 278 K/mcL (140-400); Red Blood Count 5.01 M/mcL (4.19-5.50); Red Cell Distribution Width 12.7 % (11.5-14.5); Segmented Neutrophils % 58.3 %; White Blood Count 6.1 K/mcL (4.3-11.1)
[2019-08-26 16:58] LABS: ABG Base Excess 3 mEq/L (-2 to 3); ABG HCO3 28 mEq/L (21-27); ABG Oxygen Saturation 98 % (95-98); ABG PCO2 44 mmHg (35-45); ABG PH 7.42 pH Units (7.32-7.45); ABG PO2 96 mmHg (85-104); ABG TCO2 30 mEq/L (20-26)
[2019-08-26 17:00] LABS: Alanine Aminotransferase 15 Units/L (7-52); Albumin 4.1 g/dL (3.5-5.7); Albumin/Globulin Ratio 1.3 (1.1-2.2); Alkaline Phosphatase 67 Units/L (34-104); Aspartate Amino Transferase 12 Units/L (13-39); BUN/Creatinine Ratio 13 (6-26); Bilirubin,Direct 0.1 mg/dL (0.0-0.2); Bilirubin,Indirect 0.2 mg/dL (0.0-1.0); Bilirubin,Total 0.3 mg/dL (0.3-1.0); Blood Urea Nitrogen 14 mg/dL (6-20); Calcium 9.3 mg/dL (8.6-10.3); Carbon Dioxide 28 mEq/L (23-29); Chloride 102 mEq/L (98-107); Globulin 3.1 g/dL (2.4-3.5); Glucose 89 mg/dL (70-105); Osmolality,Calculated 284 (280-300); Potassium 4.1 mEq/L (3.5-5.1); Sodium 137 mEq/L (136-145); Total Protein 7.2 g/dL (6.4-8.9); Troponin I < 0.03 ng/mL (< 0.04); eGFR For African Americans > 60 (> 60); eGFR For Non-African Americans > 60 (> 60)
[2019-08-26] MEDS ORDERED: 0.9 % Sodium Chloride 1,000 ML IVC ONE (17:31)
[2019-08-26 17:34] LABS: Bilirubin,Urine Negative (Negative); Blood,Urine Negative (Negative); Clarity,Urine Clear (Clear); Color,Urine Yellow (Yellow); Glucose,Urine (UA) 100 mg/dL (Normal); Ketones,Urine Negative (Negative); Leukocyte Esterase,Urine Negative (Negative); Nitrite,Urine Negative (Negative); Protein,Urine Trace mg/dL (Neg-Trace); Specific Gravity,Urine 1.025 (1.010-1.025); Urobilinogen,Urine Normal (Normal)
[2019-08-26] MEDS ORDERED: Ketorolac 30 MG/ML VIAL IVP ONE (17:41)
[2019-08-26] MEDS ORDERED: Albuterol 2.5 MG/3 ML NEBULIZER IH ONE (17:43)
[2019-08-26] MEDS ORDERED: Isovue-370 500 ML BOTTLE IVP ONE (18:08)
[2019-08-26] MEDS ORDERED: Ondansetron 4 MG/2 ML VIAL IVP PRN (21:06)
[2019-08-26] MEDS ORDERED: Naloxone 0.4 MG/ML INJ IVP PRN (21:06)
[2019-08-26] MEDS ORDERED: Acetaminophen 325 MG TABLET PO PRN (21:06)
[2019-08-26] MEDS ORDERED: Ipratropium/Albuterol Neb 3 ML IH PRN (21:08)
[2019-08-26] MEDS: ALPRAZolam 1 MG TABLET PO PRN (22:49)
[2019-08-27] MEDS: Ipratropium/Albuterol Neb 3 ML IH SCH ×4 (03:16→21:58)
[2019-08-27 04:28] LABS: Basophils % 0.3 %; Hematocrit 46.2 % (37.5-50.1); Hemoglobin 15.3 g/dL (12.9-16.9); Lymphocytes # 1.6 K/mcL (0.6-4.6); Mean Corpuscular HGB Conc 33.1 g/dL (31.6-35.5); Mean Corpuscular Hemoglobin 33.1 pg (28.0-33.3); Mean Platelet Volume 8.6 fL (9.4-12.4); Monocytes # 0.2 K/mcL (0.0-1.3); Monocytes % 3.5 %; Neutrophils # 4.9 K/mcL (1.6-8.9); Platelet Count 265 K/mcL (140-400); Red Blood Count 4.62 M/mcL (4.19-5.50); Red Cell Distribution Width 12.5 % (11.5-14.5); Segmented Neutrophils % 72.2 %; White Blood Count 6.8 K/mcL (4.3-11.1)
[2019-08-27 04:44] LABS: BUN/Creatinine Ratio 17 (6-26); Blood Urea Nitrogen 16 mg/dL (6-20); Calcium 8.8 mg/dL (8.6-10.3); Carbon Dioxide 25 mEq/L (23-29); Chloride 104 mEq/L (98-107); Glucose 153 mg/dL (70-105); Magnesium 2.1 mg/dL (1.6-2.6); Osmolality,Calculated 288 (280-300); Potassium 4.4 mEq/L (3.5-5.1); Sodium 137 mEq/L (136-145); eGFR For African Americans > 60 (> 60); eGFR For Non-African Americans > 60 (> 60)
[2019-08-27] MEDS: MethylPREDNISolone 40 MG/ML VIAL IVP SCH ×2 (05:24→17:31)
[2019-08-27] MEDS: *HR* Heparin 5,000 UNIT/ML VIAL SQ SCH ×3 (05:26→21:15)
[2019-08-27] MEDS: Gabapentin 300 MG CAPSULE PO SCH ×4 (09:32→21:14)
[2019-08-27] MEDS: amLODIPine 5 MG TABLET PO SCH (09:33)
[2019-08-27] MEDS: ALPRAZolam 1 MG TABLET PO PRN (21:18)
[2019-08-28] MEDS: Ipratropium/Albuterol Neb 3 ML IH SCH ×2 (04:02→10:54)
[2019-08-28] MEDS: MethylPREDNISolone 40 MG/ML VIAL IVP SCH (05:51)
[2019-08-28] MEDS: *HR* Heparin 5,000 UNIT/ML VIAL SQ SCH (05:51)
[2019-08-28 06:57] VITALS: BP 159/78
[2019-08-28] MEDS: Gabapentin 300 MG CAPSULE PO SCH (07:42)
[2019-08-28] MEDS: amLODIPine 5 MG TABLET PO SCH (07:42)
[2019-08-28] MEDS: ALPRAZolam 1 MG TABLET PO PRN (09:46)
== END 2019-08-28 14:08 | disposition home or self-care (01) ==
LOC: EMEROOARM 16:08 → 3BNU 16:08 → SUATTDRO 20:56 → 3BNU 21:21
PROVIDERS: ADMIT Pharmacist; ATTEND Internal Medicine

== ENCOUNTER 2020-11-26 10:46 | Inpatient (IN) ==
[2020-11-26 11:46] LABS: Basophils % 0.3 %; Eosinophils # 0.1 K/mcL (0.0-0.6); Eosinophils % 1.6 %; Hematocrit 37.8 % (37.5-50.1); Hemoglobin 12.3 g/dL (12.9-16.9); Immature Granulocytes % 0.4 % (0-4); Lymphocytes # 1.2 K/mcL (0.6-4.6); Lymphocytes % 17.5 %; Mean Corpuscular HGB Conc 32.5 g/dL (31.6-35.5); Mean Corpuscular Hemoglobin 30.1 pg (28.0-33.3); Mean Corpuscular Volume 92.6 fL (83.0-100.0); Mean Platelet Volume 8.6 fL (9.4-12.4); Monocytes # 0.7 K/mcL (0.0-1.3); Monocytes % 9.3 %; Platelet Count 141 K/mcL (140-400); Red Blood Count 4.08 M/mcL (4.19-5.50); Red Cell Distribution Width 14.3 % (11.5-14.5); Segmented Neutrophils % 70.9 %; White Blood Count 7.1 K/mcL (4.3-11.1)
[2020-11-26] MEDS: 0.9 % Sodium Chloride 1,000 ML IVC ONE ×2 (11:58→14:58)
[2020-11-26 11:59] LABS: Activated Partial Thrombo Time 25.1 Seconds (26.0-36.0)
[2020-11-26 12:08] LABS: Alanine Aminotransferase 20 Units/L (7-52); Albumin 3.7 g/dL (3.5-5.7); Albumin/Globulin Ratio 1.4 (1.1-2.2); Alkaline Phosphatase 71 Units/L (34-104); Aspartate Amino Transferase 21 Units/L (13-39); BUN/Creatinine Ratio 16 (6-26); Bilirubin,Indirect 0.4 mg/dL (0.0-1.0); Bilirubin,Total 0.4 mg/dL (0.3-1.0); Blood Urea Nitrogen 21 mg/dL (6-20); Calcium 8.4 mg/dL (8.6-10.3); Carbon Dioxide 27 mEq/L (23-29); Chloride 104 mEq/L (98-107); Globulin 2.6 g/dL (2.4-3.5); Glucose 128 mg/dL (70-105); Lipase 16 Units/L (11-82); Magnesium 1.6 mg/dL (1.6-2.6); Osmolality,Calculated 291 (280-300); Phosphorous 1.4 mg/dL (2.7-4.5); Potassium 3.8 mEq/L (3.5-5.1); Sodium 138 mEq/L (136-145); Total Protein 6.3 g/dL (6.4-8.9); Troponin I < 0.03 ng/mL (< 0.04); eGFR For African Americans > 60 (> 60); eGFR For Non-African Americans 56 (> 60)
[2020-11-26 12:11] LABS: INR 0.9; Prothrombin Time 10.7 Seconds (9.4-12.1)
[2020-11-26] MEDS ORDERED: Isovue-370 500 ML BOTTLE IVP ONE (12:15)
[2020-11-26] MEDS ORDERED: Piperacillin/Tazobactam 3.375 GM in 0.9 % Sodium Chloride Mini Bag 100 ML IVPB ONE (12:30)
[2020-11-26 13:23] LABS: Bilirubin,Urine Negative (Negative); Blood,Urine Negative (Negative); Clarity,Urine Clear (Clear); Color,Urine Light-Yellow (Yellow); Glucose,Urine (UA) Normal (Normal); Ketones,Urine Negative (Negative); Leukocyte Esterase,Urine Negative (Negative); Nitrite,Urine Negative (Negative); Protein,Urine Negative (Neg-Trace); Urobilinogen,Urine Normal (Normal)
[2020-11-26] MEDS ORDERED: Potassium Phosphate 44 MEQ in 0.9 % Sodium Chloride 250 ML IVPB ONE (13:37)
[2020-11-26] MEDS ORDERED: Acetaminophen 325 MG TABLET PO PRN (13:46)
[2020-11-26] MEDS ORDERED: Ondansetron 4 MG/2 ML VIAL IVP PRN (13:46)
[2020-11-26] MEDS ORDERED: 0.9 % Sodium Chloride 1,000 ML IVC ONE (13:50)
[2020-11-26] MEDS ORDERED: MethylPREDNISolone 40 MG/ML VIAL IVP ONE (15:59)
[2020-11-26] MEDS ORDERED: Azithromycin 250 MG TABLET PO ONE (15:59)
[2020-11-26] MEDS: Ipratropium/Albuterol Neb 3 ML IH SCH ×2 (16:08→21:46)
[2020-11-26] MEDS: levETIRAcetam 250 MG TABLET PO SCH (17:11)
[2020-11-26] MEDS: Gabapentin 300 MG CAPSULE PO SCH ×2 (18:12→20:59)
[2020-11-26] MEDS: ALPRAZolam 0.5 MG TABLET PO SCH (20:58)
[2020-11-26] MEDS: Piperacillin/Tazobactam 3.375 GM in 0.9 % Sodium Chloride Mini Bag 100 ML IVPB SCH (21:00)
[2020-11-26] MEDS: Budesonide/Formoterol 160/4.5 1 PUFF INH IH SCH (21:46)
[2020-11-27] MEDS ORDERED: Vancomycin 1,500 MG/265 ML IV.SOLN IVPB SCH (01:00)
[2020-11-27] MEDS: Ipratropium/Albuterol Neb 3 ML IH SCH ×4 (03:50→22:23)
[2020-11-27] MEDS: levETIRAcetam 250 MG TABLET PO SCH ×2 (05:22→17:03)
[2020-11-27] MEDS: Piperacillin/Tazobactam 3.375 GM in 0.9 % Sodium Chloride Mini Bag 100 ML IVPB SCH ×3 (05:23→21:40)
[2020-11-27] MEDS: *HR* Enoxaparin 40 MG/0.4 ML SYRINGE SQ SCH (05:23)
[2020-11-27 07:15] LABS: Hematocrit 38.8 % (37.5-50.1); Hemoglobin 12.1 g/dL (12.9-16.9); Mean Corpuscular HGB Conc 31.2 g/dL (31.6-35.5); Mean Corpuscular Hemoglobin 29.2 pg (28.0-33.3); Mean Corpuscular Volume 93.5 fL (83.0-100.0); Mean Platelet Volume 8.7 fL (9.4-12.4); Platelet Count 163 K/mcL (140-400); Red Blood Count 4.15 M/mcL (4.19-5.50); Red Cell Distribution Width 14.2 % (11.5-14.5)
[2020-11-27 07:16] LABS: White Blood Count 11.5 K/mcL (4.3-11.1)
[2020-11-27 07:32] LABS: BUN/Creatinine Ratio 16 (6-26); Blood Urea Nitrogen 16 mg/dL (6-20); Calcium 8.6 mg/dL (8.6-10.3); Carbon Dioxide 22 mEq/L (23-29); Chloride 107 mEq/L (98-107); Glucose 193 mg/dL (70-105); Magnesium 1.9 mg/dL (1.6-2.6); Osmolality,Calculated 290 (280-300); Phosphorous 2.4 mg/dL (2.7-4.5); Potassium 4.3 mEq/L (3.5-5.1); Sodium 137 mEq/L (136-145); eGFR For African Americans > 60 (> 60); eGFR For Non-African Americans > 60 (> 60)
[2020-11-27] MEDS: predniSONE 20 MG TABLET PO SCH (07:35)
[2020-11-27] MEDS: Azithromycin 250 MG TABLET PO SCH (07:35)
[2020-11-27] MEDS: Gabapentin 300 MG CAPSULE PO SCH ×3 (07:35→21:39)
[2020-11-27] MEDS: ALPRAZolam 0.5 MG TABLET PO SCH ×2 (07:35→21:40)
[2020-11-27] MEDS: Budesonide/Formoterol 160/4.5 1 PUFF INH IH SCH ×2 (09:57→22:23)
[2020-11-28 02:48] LABS: Hematocrit 36.6 % (37.5-50.1); Hemoglobin 11.7 g/dL (12.9-16.9); Mean Corpuscular Hemoglobin 29.7 pg (28.0-33.3); Mean Corpuscular Volume 92.9 fL (83.0-100.0); Mean Platelet Volume 8.7 fL (9.4-12.4); Platelet Count 168 K/mcL (140-400); Red Blood Count 3.94 M/mcL (4.19-5.50); Red Cell Distribution Width 14.5 % (11.5-14.5); White Blood Count 9.9 K/mcL (4.3-11.1)
[2020-11-28 03:13] LABS: BUN/Creatinine Ratio 14 (6-26); Blood Urea Nitrogen 13 mg/dL (6-20); Calcium 8.4 mg/dL (8.6-10.3); Carbon Dioxide 26 mEq/L (23-29); Chloride 108 mEq/L (98-107); Glucose 108 mg/dL (70-105); Magnesium 1.9 mg/dL (1.6-2.6); Osmolality,Calculated 291 (280-300); Potassium 3.3 mEq/L (3.5-5.1); Sodium 140 mEq/L (136-145); eGFR For African Americans > 60 (> 60); eGFR For Non-African Americans > 60 (> 60)
[2020-11-28] MEDS: Ipratropium/Albuterol Neb 3 ML IH SCH ×2 (03:34→10:20)
[2020-11-28] MEDS: levETIRAcetam 250 MG TABLET PO SCH (05:51)
[2020-11-28] MEDS: Piperacillin/Tazobactam 3.375 GM in 0.9 % Sodium Chloride Mini Bag 100 ML IVPB SCH (05:51)
[2020-11-28] MEDS: *HR* Enoxaparin 40 MG/0.4 ML SYRINGE SQ SCH (05:54)
[2020-11-28 06:46] VITALS: BP 167/90
[2020-11-28 07:48] LABS: Phosphorous 2.8 mg/dL (2.7-4.5)
[2020-11-28] MEDS: ALPRAZolam 0.5 MG TABLET PO SCH (09:17)
[2020-11-28] MEDS: Gabapentin 300 MG CAPSULE PO SCH (09:17)
[2020-11-28] MEDS: predniSONE 20 MG TABLET PO SCH (09:18)
[2020-11-28] MEDS: Azithromycin 250 MG TABLET PO SCH (09:18)
[2020-11-28] MEDS: Budesonide/Formoterol 160/4.5 1 PUFF INH IH SCH (10:20)
== END 2020-11-28 11:47 | disposition home or self-care (01) | DRG 871 ==
LOC: EMEROOARM 10:46 → 3BNU 10:46 → SUATTDRO 13:26 → 2NENU 13:35 → 2ANU 11-27 17:40
PROVIDERS: ADMIT Internal Medicine; ATTEND Internal Medicine

== ENCOUNTER 2021-01-02 14:34 | Observation (INO) ==
[2021-01-02] MEDS ORDERED: methylPREDNISolone 125 MG/2 ML VIAL IVP ONE (14:52)
[2021-01-02] MEDS ORDERED: Ipratropium/Albuterol Neb 3 ML IH ONE (14:52)
[2021-01-02 15:30] LABS: Basophils # 0.1 K/mcL (0.0-0.2); Eosinophils # 0.3 K/mcL (0.0-0.6); Eosinophils % 2.5 %; Hematocrit 42.4 % (37.5-50.1); Hemoglobin 13.9 g/dL (12.9-16.9); Immature Granulocytes % 2.2 % (0-4); Lymphocytes # 4.5 K/mcL (0.6-4.6); Lymphocytes % 43.4 %; Mean Corpuscular HGB Conc 32.8 g/dL (31.6-35.5); Mean Corpuscular Hemoglobin 30.7 pg (28.0-33.3); Mean Corpuscular Volume 93.6 fL (83.0-100.0); Mean Platelet Volume 8.4 fL (9.4-12.4); Monocytes # 1.2 K/mcL (0.0-1.3); Monocytes % 11.2 %; Neutrophils # 4.2 K/mcL (1.6-8.9); Platelet Count 274 K/mcL (140-400); Red Blood Count 4.53 M/mcL (4.19-5.50); Red Cell Distribution Width 14.3 % (11.5-14.5); Segmented Neutrophils % 39.7 %; White Blood Count 10.5 K/mcL (4.3-11.1)
[2021-01-02 15:49] LABS: Alanine Aminotransferase 12 Units/L (7-52); Albumin/Globulin Ratio 1.6 (1.1-2.2); Alkaline Phosphatase 66 Units/L (34-104); Aspartate Amino Transferase 12 Units/L (13-39); BUN/Creatinine Ratio 19 (6-26); Bilirubin,Direct 0.1 mg/dL (0.0-0.2); Bilirubin,Indirect 0.3 mg/dL (0.0-1.0); Bilirubin,Total 0.4 mg/dL (0.3-1.0); Blood Urea Nitrogen 20 mg/dL (6-20); Carbon Dioxide 33 mEq/L (23-29); Chloride 100 mEq/L (98-107); Ethanol < 10 mg/dL (Less than 10); Globulin 2.5 g/dL (2.4-3.5); Glucose 105 mg/dL (70-105); Osmolality,Calculated 293 (280-300); Potassium 3.6 mEq/L (3.5-5.1); Sodium 140 mEq/L (136-145); Total Protein 6.5 g/dL (6.4-8.9); Troponin I < 0.03 ng/mL (< 0.04); eGFR For African Americans > 60 (> 60); eGFR For Non-African Americans > 60 (> 60)
[2021-01-02] MEDS ORDERED: Isovue-370 500 ML BOTTLE IVP ONE (16:01)
[2021-01-02] MEDS ORDERED: *HR* Heparin 5,000 UNIT/ML VIAL IVP PRN ×2 (17:40)
[2021-01-02] MEDS ORDERED: *HR* Heparin 5,000 UNIT/ML VIAL IVP ONE (17:40)
[2021-01-02] MEDS ORDERED: Naloxone 0.4 MG/ML INJ IVP PRN (18:06)
[2021-01-02] MEDS ORDERED: Ondansetron 4 MG/2 ML VIAL IVP PRN (18:06)
[2021-01-02] MEDS ORDERED: Perflutren Lipid Microsphere 1.3 ML in 0.9 % Sodium Chloride 8.7 ML IVP PRN (18:07)
[2021-01-02] MEDS ORDERED: Warfarin perPT PO PRN (19:00)
[2021-01-02 19:33] LABS: Heparin anti-factor XA UFH 0.05 IU/mL (0.30-0.70); INR 0.8; Prothrombin Time 9.7 Seconds (9.4-12.1)
[2021-01-02] MEDS ORDERED: *HR* Warfarin 5 MG TABLET PO ONE (20:00)
[2021-01-02] MEDS: Ipratropium/Albuterol Neb 3 ML IH SCH (20:12)
[2021-01-02] MEDS: Budesonide/Formoterol 160/4.5 1 PUFF INH IH SCH (20:12)
[2021-01-02 20:14] LABS: Activated Partial Thrombo Time 18.9 Seconds (26.0-36.0)
[2021-01-02] MEDS: Azithromycin 500 MG in 0.9 % Sodium Chloride 250 ML IVPB SCH (20:14)
[2021-01-02] MEDS: Heparin 25,000UNIT/250ML 1/2NS 25,000 UNIT/250 ML IV.SOLN IVC SCH (20:14)
[2021-01-02] MEDS: Melatonin 3 MG TABLET PO PRN (22:01)
[2021-01-02] MEDS: levETIRAcetam 250 MG TABLET PO SCH (22:01)
[2021-01-02] MEDS: ALPRAZolam 0.5 MG TABLET PO PRN (22:01)
[2021-01-03] MEDS: Ipratropium/Albuterol Neb 3 ML IH SCH ×7 (00:05→22:56)
[2021-01-03 03:23] LABS: Basophils # 0.1 K/mcL (0.0-0.2); Basophils % 0.4 %; Eosinophils # 0.3 K/mcL (0.0-0.6); Eosinophils % 2.4 %; Hematocrit 44.1 % (37.5-50.1); Lymphocytes % 26.8 %; Mean Corpuscular Volume 91.1 fL (83.0-100.0); Mean Platelet Volume 8.6 fL (9.4-12.4); Monocytes # 0.6 K/mcL (0.0-1.3); Monocytes % 5.4 %; Neutrophils # 7.1 K/mcL (1.6-8.9); Platelet Count 258 K/mcL (140-400); Red Blood Count 4.84 M/mcL (4.19-5.50); Red Cell Distribution Width 13.7 % (11.5-14.5); White Blood Count 11.3 K/mcL (4.3-11.1)
[2021-01-03 03:36] LABS: Prothrombin Time 11.6 Seconds (9.4-12.1)
[2021-01-03 04:29] LABS: BUN/Creatinine Ratio 22 (6-26); Blood Urea Nitrogen 20 mg/dL (6-20); Calcium 8.9 mg/dL (8.6-10.3); Carbon Dioxide 24 mEq/L (23-29); Chloride 99 mEq/L (98-107); Glucose 158 mg/dL (70-105); Osmolality,Calculated 288 (280-300); Potassium 3.9 mEq/L (3.5-5.1); Sodium 136 mEq/L (136-145); Troponin I < 0.03 ng/mL (< 0.04); eGFR For African Americans > 60 (> 60); eGFR For Non-African Americans > 60 (> 60)
[2021-01-03] MEDS ORDERED: Acetaminophen 325 MG TABLET PO ONE (06:37)
[2021-01-03] MEDS: Budesonide/Formoterol 160/4.5 1 PUFF INH IH SCH ×2 (07:47→11:29)
[2021-01-03] MEDS: predniSONE 20 MG TABLET PO SCH (08:23)
[2021-01-03] MEDS: levETIRAcetam 250 MG TABLET PO SCH ×2 (08:23→20:36)
[2021-01-03] MEDS ORDERED: Ketorolac 15 MG/ML VIAL IVP ONE (08:35)
[2021-01-03] MEDS: Metoprolol XL (24 HR) Succ 25 MG TAB.ER.24H PO SCH (08:52)
[2021-01-03] MEDS: Gabapentin 300 MG CAPSULE PO SCH ×3 (08:52→20:36)
[2021-01-03] MEDS ORDERED: *HR* Warfarin 5 MG TABLET PO ONE (11:15)
[2021-01-03] MEDS: *HR* OxyCODONE/APAP 5/325 TABLET PO PRN ×2 (14:11→20:36)
[2021-01-03] MEDS: Heparin 25,000UNIT/250ML 1/2NS 25,000 UNIT/250 ML IV.SOLN IVC SCH (16:19)
[2021-01-03] MEDS: Azithromycin 500 MG in 0.9 % Sodium Chloride 250 ML IVPB SCH (18:19)
[2021-01-03] MEDS: ALPRAZolam 0.5 MG TABLET PO PRN (20:37)
[2021-01-04 01:08] LABS: Hematocrit 40.1 % (37.5-50.1); Hemoglobin 13.6 g/dL (12.9-16.9); Mean Corpuscular HGB Conc 33.9 g/dL (31.6-35.5); Mean Corpuscular Hemoglobin 31.2 pg (28.0-33.3); Mean Platelet Volume 8.7 fL (9.4-12.4); Platelet Count 254 K/mcL (140-400); Red Blood Count 4.36 M/mcL (4.19-5.50); Red Cell Distribution Width 14.6 % (11.5-14.5)
[2021-01-04 01:18] LABS: INR 1.2; Prothrombin Time 13.4 Seconds (9.4-12.1)
[2021-01-04 01:27] LABS: BUN/Creatinine Ratio 24 (6-26); Blood Urea Nitrogen 29 mg/dL (6-20); Calcium 8.3 mg/dL (8.6-10.3); Carbon Dioxide 30 mEq/L (23-29); Chloride 101 mEq/L (98-107); Glucose 101 mg/dL (70-105); Osmolality,Calculated 294 (280-300); Potassium 3.5 mEq/L (3.5-5.1); Sodium 139 mEq/L (136-145); eGFR For African Americans > 60 (> 60); eGFR For Non-African Americans > 60 (> 60)
[2021-01-04] MEDS: Ipratropium/Albuterol Neb 3 ML IH SCH ×6 (03:50→23:06)
[2021-01-04] MEDS: *HR* OxyCODONE/APAP 5/325 TABLET PO PRN ×3 (03:52→18:02)
[2021-01-04] MEDS: Budesonide/Formoterol 160/4.5 1 PUFF INH IH SCH (07:41)
[2021-01-04] MEDS: predniSONE 20 MG TABLET PO SCH (08:09)
[2021-01-04] MEDS: Metoprolol XL (24 HR) Succ 25 MG TAB.ER.24H PO SCH (08:09)
[2021-01-04] MEDS: Gabapentin 300 MG CAPSULE PO SCH ×3 (08:09→20:01)
[2021-01-04] MEDS: levETIRAcetam 250 MG TABLET PO SCH ×2 (08:14→20:01)
[2021-01-04] MEDS ORDERED: *HR* Enoxaparin 100 MG/ML SYRINGE SQ SCH (09:00)
[2021-01-04] MEDS: *HR* Enoxaparin 100 MG/ML SYRINGE SQ SCH ×2 (09:24→20:00)
[2021-01-04] MEDS: Heparin 25,000UNIT/250ML 1/2NS 25,000 UNIT/250 ML IV.SOLN IVC SCH (10:15)
[2021-01-04] MEDS ORDERED: *HR* Warfarin 5 MG TABLET PO ONE (18:00)
[2021-01-04] MEDS: Azithromycin 500 MG in 0.9 % Sodium Chloride 250 ML IVPB SCH (18:03)
[2021-01-05] MEDS: *HR* OxyCODONE/APAP 5/325 TABLET PO PRN ×4 (00:15→21:14)
[2021-01-05] MEDS: Melatonin 3 MG TABLET PO PRN (00:37)
[2021-01-05] MEDS: ALPRAZolam 0.5 MG TABLET PO PRN (00:37)
[2021-01-05] MEDS: Ipratropium/Albuterol Neb 3 ML IH SCH ×6 (03:29→23:39)
[2021-01-05 04:52] LABS: INR 1.6; Prothrombin Time 17.8 Seconds (9.4-12.1)
[2021-01-05] MEDS: Budesonide/Formoterol 160/4.5 1 PUFF INH IH SCH (07:28)
[2021-01-05] MEDS: *HR* Enoxaparin 100 MG/ML SYRINGE SQ SCH ×2 (08:20→21:08)
[2021-01-05] MEDS: predniSONE 20 MG TABLET PO SCH (08:22)
[2021-01-05] MEDS: Gabapentin 300 MG CAPSULE PO SCH ×3 (08:22→21:08)
[2021-01-05] MEDS: levETIRAcetam 250 MG TABLET PO SCH ×2 (08:22→21:08)
[2021-01-05] MEDS: Metoprolol XL (24 HR) Succ 25 MG TAB.ER.24H PO SCH (08:22)
[2021-01-05] MEDS ORDERED: *HR* Warfarin 5 MG TABLET PO ONE (18:00)
[2021-01-05] MEDS ORDERED: Azithromycin 250 MG TABLET PO SCH (19:00)
[2021-01-06] MEDS ORDERED: Acetaminophen 325 MG TABLET PO ONE (00:03)
[2021-01-06 01:22] LABS: Hematocrit 42.2 % (37.5-50.1); Hemoglobin 13.4 g/dL (12.9-16.9); Mean Corpuscular HGB Conc 31.8 g/dL (31.6-35.5); Mean Corpuscular Hemoglobin 30.9 pg (28.0-33.3); Mean Corpuscular Volume 97.5 fL (83.0-100.0); Mean Platelet Volume 8.9 fL (9.4-12.4); Platelet Count 253 K/mcL (140-400); Red Blood Count 4.33 M/mcL (4.19-5.50); Red Cell Distribution Width 14.7 % (11.5-14.5); White Blood Count 9.8 K/mcL (4.3-11.1)
[2021-01-06 01:28] LABS: Prothrombin Time 22.7 Seconds (9.4-12.1)
[2021-01-06 01:52] LABS: BUN/Creatinine Ratio 11 (6-26); Blood Urea Nitrogen 14 mg/dL (6-20); Calcium 8.8 mg/dL (8.6-10.3); Carbon Dioxide 27 mEq/L (23-29); Chloride 103 mEq/L (98-107); Glucose 116 mg/dL (70-105); Magnesium 2.1 mg/dL (1.6-2.6); Osmolality,Calculated 287 (280-300); Phosphorous 3.2 mg/dL (2.7-4.5); Potassium 3.4 mEq/L (3.5-5.1); Sodium 138 mEq/L (136-145); eGFR For African Americans > 60 (> 60); eGFR For Non-African Americans > 60 (> 60)
[2021-01-06] MEDS: Ipratropium/Albuterol Neb 3 ML IH SCH ×4 (03:48→18:02)
[2021-01-06] MEDS: Budesonide/Formoterol 160/4.5 1 PUFF INH IH SCH (07:31)
[2021-01-06] MEDS: *HR* Enoxaparin 100 MG/ML SYRINGE SQ SCH (08:00)
[2021-01-06] MEDS: levETIRAcetam 250 MG TABLET PO SCH (08:01)
[2021-01-06] MEDS: Gabapentin 300 MG CAPSULE PO SCH ×2 (08:01→15:59)
[2021-01-06] MEDS: Metoprolol XL (24 HR) Succ 25 MG TAB.ER.24H PO SCH (08:02)
[2021-01-06] MEDS: predniSONE 20 MG TABLET PO SCH (08:02)
[2021-01-06] MEDS: *HR* OxyCODONE/APAP 5/325 TABLET PO PRN (08:14)
[2021-01-06 09:31] VITALS: BP 136/80
[2021-01-06] MEDS ORDERED: *HR* Warfarin 2.5 MG TABLET PO ONE (18:00)
== END 2021-01-06 18:28 | disposition home or self-care (01) ==
LOC: EMEROOARM 14:34 → 3ANU 14:34 → SUATTDRO 17:50 → 3ANU 18:30
PROVIDERS: ADMIT Internal Medicine; ATTEND Internal Medicine

== ENCOUNTER 2021-01-12 13:39 | Observation (INO) ==
[2021-01-12] MEDS ORDERED: 0.9 % Sodium Chloride 1,000 ML IVC ONE ×2 (14:01→14:10)
[2021-01-12] MEDS ORDERED: Isovue-370 500 ML BOTTLE IVP ONE (14:02)
[2021-01-12 14:42] LABS: Basophils % 0.3 %; Eosinophils # 0.3 K/mcL (0.0-0.6); Eosinophils % 2.5 %; Hematocrit 42.6 % (37.5-50.1); Hemoglobin 13.7 g/dL (12.9-16.9); Immature Granulocytes % 0.4 % (0-4); Lymphocytes # 1.8 K/mcL (0.6-4.6); Lymphocytes % 15.5 %; Mean Corpuscular HGB Conc 32.2 g/dL (31.6-35.5); Mean Corpuscular Hemoglobin 30.9 pg (28.0-33.3); Mean Corpuscular Volume 96.2 fL (83.0-100.0); Mean Platelet Volume 8.6 fL (9.4-12.4); Monocytes # 1.4 K/mcL (0.0-1.3); Monocytes % 11.7 %; Neutrophils # 8.1 K/mcL (1.6-8.9); Platelet Count 227 K/mcL (140-400); Red Blood Count 4.43 M/mcL (4.19-5.50); Red Cell Distribution Width 14.1 % (11.5-14.5); Segmented Neutrophils % 69.6 %; White Blood Count 11.6 K/mcL (4.3-11.1)
[2021-01-12 14:51] LABS: INR 2.5
[2021-01-12 14:54] LABS: Activated Partial Thrombo Time 39.8 Seconds (26.0-36.0)
[2021-01-12 15:03] LABS: Alanine Aminotransferase 21 Units/L (7-52); Albumin 4.1 g/dL (3.5-5.7); Albumin/Globulin Ratio 1.4 (1.1-2.2); Alkaline Phosphatase 78 Units/L (34-104); Aspartate Amino Transferase 13 Units/L (13-39); BUN/Creatinine Ratio 11 (6-26); Bilirubin,Direct 0.1 mg/dL (0.0-0.2); Bilirubin,Indirect 0.3 mg/dL (0.0-1.0); Bilirubin,Total 0.4 mg/dL (0.3-1.0); Blood Urea Nitrogen 13 mg/dL (6-20); Calcium 9.3 mg/dL (8.6-10.3); Carbon Dioxide 31 mEq/L (23-29); Chloride 100 mEq/L (98-107); Creatine Kinase 40 Units/L (30-223); Globulin 2.9 g/dL (2.4-3.5); Glucose 106 mg/dL (70-105); Osmolality,Calculated 291 (280-300); Potassium 4.2 mEq/L (3.5-5.1); Sodium 140 mEq/L (136-145); Troponin I < 0.03 ng/mL (< 0.04); eGFR For African Americans > 60 (> 60); eGFR For Non-African Americans > 60 (> 60)
[2021-01-12] MEDS ORDERED: cefTRIAXone 1,000 MG in Water for inj. (sterile) 10 ML IVP ONE (16:19)
[2021-01-12] MEDS ORDERED: Azithromycin 500 MG in 0.9 % Sodium Chloride 250 ML IVPB ONE (16:19)
[2021-01-12] MEDS ORDERED: Piperacillin/Tazobactam 3.375 GM in Water for inj. (sterile) 20 ML IVP ONE (16:25)
[2021-01-12] MEDS ORDERED: Naloxone 0.4 MG/ML INJ IVP PRN (16:47)
[2021-01-12] MEDS ORDERED: Mag Hydrox/Al Hydrox/Simeth 30 ML UDC PO PRN (16:47)
[2021-01-12] MEDS ORDERED: Melatonin 3 MG TABLET PO PRN (16:47)
[2021-01-12] MEDS ORDERED: Ondansetron ODT 4 MG TAB.RAPDIS SL PRN (16:47)
[2021-01-12 16:52] LABS: Bilirubin,Urine Negative (Negative); Blood,Urine Negative (Negative); Clarity,Urine Clear (Clear); Color,Urine Light-Yellow (Yellow); Glucose,Urine (UA) Normal (Normal); Ketones,Urine Negative (Negative); Leukocyte Esterase,Urine Negative (Negative); Nitrite,Urine Negative (Negative); Protein,Urine Negative (Neg-Trace); Specific Gravity,Urine > 1.030 (1.010-1.025); Urobilinogen,Urine Normal (Normal)
[2021-01-12] MEDS ORDERED: Ipratropium/Albuterol Neb 3 ML IH PRN (16:52)
[2021-01-12] MEDS ORDERED: Vancomycin (wt based) 1,000 MG VIAL IVPB SCH (17:00)
[2021-01-12] MEDS ORDERED: Vancomycin 1,500 MG/265 ML IV.SOLN IVPB ONE (17:00)
[2021-01-12] MEDS ORDERED: Warfarin perPT PO PRN (18:00)
[2021-01-12] MEDS ORDERED: *HR* Warfarin 2.5 MG TABLET PO ONE (19:06)
[2021-01-12] MEDS: Gabapentin 300 MG CAPSULE PO SCH ×2 (19:18→21:50)
[2021-01-12] MEDS: predniSONE 20 MG TABLET PO SCH (19:18)
[2021-01-12] MEDS: Ipratropium/Albuterol Neb 3 ML IH SCH ×2 (19:54→23:31)
[2021-01-12] MEDS: levETIRAcetam 250 MG TABLET PO SCH (20:00)
[2021-01-12 20:26] LABS: Adenovirus Not Detected (Not Detect); Bordetella Pertussis Not Detected (Not Detect); Chlamydophila pneumoniae Not Detected (Not Detect); Coronavirus 229E Not Detected (Not Detect); Coronavirus HKU1 Not Detected (Not Detect); Coronavirus NL63 Not Detected (Not Detect); Coronavirus OC43 Not Detected (Not Detect); Human Metapneumovirus Not Detected (Not Detect); Human Rhinovirus/Enterovirus Not Detected (Not Detect); Influenza A Subtype 2009 H1 Not Detected (Not Detect); Influenza B Not Detected (Not Detect); Mycoplasma pneumoniae Not Detected (Not Detect); Parainfluenza Virus 1 Not Detected (Not Detect); Parainfluenza Virus 2 Not Detected (Not Detect); Parainfluenza Virus 3 Not Detected (Not Detect); Parainfluenza Virus 4 Not Detected (Not Detect); Respiratory Syncytial Virus Not Detected (Not Detect); SARS-CoV-2 Not Detected (Not Detect)
[2021-01-12] MEDS: ALPRAZolam 1 MG TABLET PO PRN (23:32)
[2021-01-13] MEDS: Piperacillin/Tazobactam 3.375 GM in 0.9 % Sodium Chloride Mini Bag 100 ML IVPB SCH ×3 (00:54→16:39)
[2021-01-13] MEDS: Ipratropium/Albuterol Neb 3 ML IH SCH ×6 (03:44→23:54)
[2021-01-13 05:47] LABS: Basophils % 0.1 %; Hematocrit 41.4 % (37.5-50.1); Hemoglobin 13.1 g/dL (12.9-16.9); Immature Granulocytes % 0.4 % (0-4); Lymphocytes # 1.6 K/mcL (0.6-4.6); Lymphocytes % 18.9 %; Mean Corpuscular HGB Conc 31.6 g/dL (31.6-35.5); Mean Corpuscular Hemoglobin 30.8 pg (28.0-33.3); Mean Corpuscular Volume 97.2 fL (83.0-100.0); Monocytes # 0.2 K/mcL (0.0-1.3); Monocytes % 2.3 %; Neutrophils # 6.6 K/mcL (1.6-8.9); Platelet Count 220 K/mcL (140-400); Red Blood Count 4.26 M/mcL (4.19-5.50); Red Cell Distribution Width 13.9 % (11.5-14.5); Segmented Neutrophils % 78.3 %; White Blood Count 8.4 K/mcL (4.3-11.1)
[2021-01-13 05:51] LABS: INR 2.2; Prothrombin Time 25.4 Seconds (9.4-12.1)
[2021-01-13] MEDS ORDERED: Vancomycin 1,500 MG/265 ML IV.SOLN IVPB SCH (06:00)
[2021-01-13 06:07] LABS: BUN/Creatinine Ratio 13 (6-26); Blood Urea Nitrogen 16 mg/dL (6-20); Calcium 8.8 mg/dL (8.6-10.3); Carbon Dioxide 28 mEq/L (23-29); Chloride 103 mEq/L (98-107); Glucose 231 mg/dL (70-105); Osmolality,Calculated 297 (280-300); Potassium 3.7 mEq/L (3.5-5.1); Sodium 139 mEq/L (136-145); eGFR For African Americans > 60 (> 60); eGFR For Non-African Americans > 60 (> 60)
[2021-01-13] MEDS: Gabapentin 300 MG CAPSULE PO SCH ×3 (06:15→17:44)
[2021-01-13] MEDS: Budesonide/Formoterol 160/4.5 1 PUFF INH IH SCH (07:45)
[2021-01-13] MEDS: levETIRAcetam 250 MG TABLET PO SCH ×2 (07:53→21:22)
[2021-01-13] MEDS: Metoprolol XL (24 HR) Succ 25 MG TAB.ER.24H PO SCH (07:53)
[2021-01-13] MEDS: predniSONE 20 MG TABLET PO SCH (07:53)
[2021-01-13] MEDS ORDERED: levoFLOXacin 750 MG/150 ML 750 MG/150 ML BAG IVPB SCH (09:00)
[2021-01-13] MEDS ORDERED: MethylPREDNISolone 40 MG/ML VIAL IVP ONE (11:51)
[2021-01-13] MEDS ORDERED: Melatonin 3 MG TABLET PO PRN (17:37)
[2021-01-13] MEDS ORDERED: Benzonatate 100 MG CAPSULE PO PRN (17:37)
[2021-01-13] MEDS ORDERED: Saline Nasal Spray 44 ML BOTTLE NS PRN (17:37)
[2021-01-13] MEDS ORDERED: Artificial Tears SOLN 15 ML BOTTLE BOTH EYES PRN (17:37)
[2021-01-13] MEDS ORDERED: *HR* Warfarin 5 MG TABLET PO ONE (18:00)
[2021-01-13] MEDS: Lactobacillus 1 EACH CAP.SPRINK PO SCH (21:22)
[2021-01-13] MEDS: ALPRAZolam 1 MG TABLET PO PRN (21:22)
[2021-01-13] MEDS: Doxycycline 100 MG CAPSULE PO SCH (21:22)
[2021-01-14] MEDS: Gabapentin 300 MG CAPSULE PO SCH ×2 (01:04→05:55)
[2021-01-14 01:55] LABS: Basophils % 0.1 %; Hematocrit 40.2 % (37.5-50.1); Lymphocytes # 2.2 K/mcL (0.6-4.6); Lymphocytes % 16.4 %; Mean Corpuscular HGB Conc 32.3 g/dL (31.6-35.5); Mean Corpuscular Hemoglobin 30.5 pg (28.0-33.3); Mean Corpuscular Volume 94.4 fL (83.0-100.0); Mean Platelet Volume 8.8 fL (9.4-12.4); Monocytes # 0.9 K/mcL (0.0-1.3); Monocytes % 6.7 %; Neutrophils # 10.3 K/mcL (1.6-8.9); Platelet Count 241 K/mcL (140-400); Red Blood Count 4.26 M/mcL (4.19-5.50); Red Cell Distribution Width 13.5 % (11.5-14.5); Segmented Neutrophils % 75.8 %
[2021-01-14 01:58] LABS: White Blood Count 13.6 K/mcL (4.3-11.1)
[2021-01-14 01:59] LABS: INR 2.4; Prothrombin Time 27.4 Seconds (9.4-12.1)
[2021-01-14 02:13] LABS: Alanine Aminotransferase 14 Units/L (7-52); Albumin 3.7 g/dL (3.5-5.7); Albumin/Globulin Ratio 1.4 (1.1-2.2); Alkaline Phosphatase 62 Units/L (34-104); Aspartate Amino Transferase 8 Units/L (13-39); BUN/Creatinine Ratio 15 (6-26); Bilirubin,Total 0.3 mg/dL (0.3-1.0); Blood Urea Nitrogen 15 mg/dL (6-20); Carbon Dioxide 24 mEq/L (23-29); Chloride 103 mEq/L (98-107); Globulin 2.7 g/dL (2.4-3.5); Glucose 165 mg/dL (70-105); Magnesium 1.7 mg/dL (1.6-2.6); Osmolality,Calculated 301 (280-300); Phosphorous 2.6 mg/dL (2.7-4.5); Potassium 3.7 mEq/L (3.5-5.1); Sodium 143 mEq/L (136-145); Total Protein 6.4 g/dL (6.4-8.9); eGFR For African Americans > 60 (> 60); eGFR For Non-African Americans > 60 (> 60)
[2021-01-14] MEDS: Ipratropium/Albuterol Neb 3 ML IH SCH ×3 (03:45→11:15)
[2021-01-14] MEDS: ALPRAZolam 1 MG TABLET PO PRN (05:55)
[2021-01-14] MEDS: Budesonide/Formoterol 160/4.5 1 PUFF INH IH SCH (07:14)
[2021-01-14 07:16] VITALS: BP 125/85
[2021-01-14] MEDS ORDERED: Multivit/Ca/Min/Fe/FA 1 TAB TABLET PO SCH (09:00)
[2021-01-14] MEDS ORDERED: levoFLOXacin 750 MG TABLET PO SCH (09:00)
[2021-01-14] MEDS: Lactobacillus 1 EACH CAP.SPRINK PO SCH (09:18)
[2021-01-14] MEDS: Metoprolol XL (24 HR) Succ 25 MG TAB.ER.24H PO SCH (09:18)
[2021-01-14] MEDS: Doxycycline 100 MG CAPSULE PO SCH (09:18)
[2021-01-14] MEDS: predniSONE 20 MG TABLET PO SCH (09:18)
[2021-01-14] MEDS: levETIRAcetam 250 MG TABLET PO SCH (09:18)
== END 2021-01-14 11:32 | disposition home or self-care (01) ==
LOC: CDU 13:39 → EMEROOARM 13:39 → SUATTDRO 16:58 → CDU 18:35
PROVIDERS: ADMIT Family Medicine; ATTEND Student in an Organized Health Care Education/Training Program

== ENCOUNTER 2021-11-03 16:20 | Inpatient (IN) ==
[2021-11-03 17:51] LABS: Basophils % 0.4 %; Eosinophils # 0.1 K/mcL (0.0-0.6); Eosinophils % 1.1 %; Hematocrit 42.5 % (37.5-50.1); Hemoglobin 14.1 g/dL (12.9-16.9); Immature Granulocytes % 0.4 % (0-4); Lymphocytes # 2.8 K/mcL (0.6-4.6); Lymphocytes % 38.8 %; Mean Corpuscular HGB Conc 33.2 g/dL (31.6-35.5); Mean Corpuscular Hemoglobin 31.1 pg (28.0-33.3); Mean Corpuscular Volume 93.8 fL (83.0-100.0); Monocytes # 0.8 K/mcL (0.0-1.3); Neutrophils # 3.5 K/mcL (1.6-8.9); Platelet Count 241 K/mcL (140-400); Red Blood Count 4.53 M/mcL (4.19-5.50); Red Cell Distribution Width 13.2 % (11.5-14.5); Segmented Neutrophils % 48.3 %; White Blood Count 7.3 K/mcL (4.3-11.1)
[2021-11-03 18:06] LABS: Alanine Aminotransferase 8 Units/L (7-52); Albumin 4.2 g/dL (3.5-5.7); Albumin/Globulin Ratio 1.6 (1.1-2.2); Alkaline Phosphatase 73 Units/L (34-104); Aspartate Amino Transferase 11 Units/L (13-39); BUN/Creatinine Ratio 7 (6-26); Bilirubin,Direct 0.1 mg/dL (0.0-0.2); Bilirubin,Indirect 0.8 mg/dL (0.0-1.0); Bilirubin,Total 0.9 mg/dL (0.3-1.0); Blood Urea Nitrogen 9 mg/dL (6-20); Calcium 9.2 mg/dL (8.6-10.3); Carbon Dioxide 25 mEq/L (23-29); Chloride 103 mEq/L (98-107); Ethanol < 10 mg/dL (Less than 10); Globulin 2.6 g/dL (2.4-3.5); Glucose 87 mg/dL (70-105); Osmolality,Calculated 284 (280-300); Potassium 3.8 mEq/L (3.5-5.1); Sodium 138 mEq/L (136-145); Total Protein 6.8 g/dL (6.4-8.9); Troponin I < 0.03 ng/mL (< 0.04); eGFR For African Americans > 60 (> 60); eGFR For Non-African Americans 55 (> 60)
[2021-11-03 18:08] LABS: INR 1.5; Prothrombin Time 16.5 Seconds (9.4-12.1)
[2021-11-03 18:11] LABS: Activated Partial Thrombo Time 35.3 Seconds (26.0-36.0)
[2021-11-03 20:02] LABS: Bilirubin,Urine Negative (Negative); Blood,Urine Negative (Negative); Clarity,Urine Clear (Clear); Color,Urine LIGHT YELLOW (Yellow); Glucose,Urine (UA) Normal (Normal); Ketones,Urine 10 mg/dL (Negative); PH,Urine 6.5 pH Units (5.0-8.0); Protein,Urine Trace mg/dL (Neg-Trace); Specific Gravity,Urine 1.015 (1.010-1.025); Urobilinogen,Urine Normal (Normal)
[2021-11-03 20:03] LABS: Leukocyte Esterase,Urine Negative (Negative); Nitrite,Urine Negative (Negative); RBC,Urine 0-3 per hpf (0-3); Squamous Epithelial Cell,Urine Few per hpf (None-Few); WBC,Urine 0-3 per hpf (0-3)
[2021-11-03 20:06] LABS: Amphetamine Screen,Urine Negative ng/mL (Cutoff=1000); Barbiturate Screen,Urine Negative ng/mL (Cutoff=200); Benzodiazepines Screen,Urine Negative ng/mL (Cutoff=200); Cannabinoid Screen,Urine Positive ng/mL (Cutoff = 50); Cocaine Screen,Urine Negative ng/mL (Cutoff= 300); Opiate Screen,Urine Negative ng/mL (Cutoff=300); Phencyclidine Screen,Urine Negative ng/mL (Cutoff=25)
[2021-11-03] MEDS ORDERED: 0.9 % Sodium Chloride 1,000 ML IV ONE (21:38)
[2021-11-03] MEDS ORDERED: Melatonin 3 MG TABLET PO PRN (21:56)
[2021-11-03] MEDS ORDERED: Ondansetron 4 MG/2 ML VIAL IVP PRN (21:56)
[2021-11-03] MEDS ORDERED: Naloxone 0.4 MG/ML INJ IVP PRN (21:56)
[2021-11-03 21:58] LABS: Creatine Kinase 101 Units/L (30-223)
[2021-11-03] MEDS ORDERED: 0.9 % Sodium Chloride 1,000 ML IVC SCH (22:00)
[2021-11-03 22:21] LABS: ABG Base Excess 3 mEq/L (-2 to 3); ABG HCO3 27 mEq/L (21-27); ABG Oxygen Saturation 96 % (95-98); ABG PCO2 37 mmHg (35-45); ABG PH 7.46 pH Units (7.32-7.45); ABG PO2 80 mmHg (85-104); ABG TCO2 28 mEq/L (20-26)
[2021-11-03 22:33] LABS: Thyroid Stimulating Hormone 2.116 mcIU/mL (0.340-5.600)
[2021-11-03 23:11] LABS: Folate 15.1 ng/mL (3.0-16.0)
[2021-11-04] MEDS: Gabapentin 300 MG CAPSULE PO SCH ×4 (02:01→19:54)
[2021-11-04 05:44] LABS: INR 1.4; Prothrombin Time 15.8 Seconds (9.4-12.1)
[2021-11-04 05:57] LABS: Alanine Aminotransferase 7 Units/L (7-52); Alkaline Phosphatase 73 Units/L (34-104); BUN/Creatinine Ratio 8 (6-26); Bilirubin,Total 1.1 mg/dL (0.3-1.0); Blood Urea Nitrogen 11 mg/dL (6-20); Calcium 9.2 mg/dL (8.6-10.3); Carbon Dioxide 26 mEq/L (23-29); Chloride 108 mEq/L (98-107); Glucose 77 mg/dL (70-105); Osmolality,Calculated 292 (280-300); Phosphorous 2.2 mg/dL (2.7-4.5); Potassium 3.5 mEq/L (3.5-5.1); Sodium 142 mEq/L (136-145); eGFR For African Americans > 60 (> 60); eGFR For Non-African Americans 55 (> 60)
[2021-11-04 06:04] LABS: Albumin 4.1 g/dL (3.5-5.7); Albumin/Globulin Ratio 1.9 (1.1-2.2); Aspartate Amino Transferase 10 Units/L (13-39); Globulin 2.2 g/dL (2.4-3.5); Total Protein 6.3 g/dL (6.4-8.9)
[2021-11-04] MEDS ORDERED: Ipratropium/Albuterol Neb 3 ML IH PRN (07:38)
[2021-11-04] MEDS: Cyanocobalamin (B-12) 1,000 MCG TABLET PO SCH (08:22)
[2021-11-04] MEDS: Metoprolol XL (24 HR) Succ 25 MG TAB.ER.24H PO SCH (08:22)
[2021-11-04] MEDS: levETIRAcetam 250 MG TABLET PO SCH ×2 (08:22→19:55)
[2021-11-04 08:25] LABS: Magnesium 1.9 mg/dL (1.6-2.6)
[2021-11-04] MEDS: 0.9 % Sodium Chloride 1,000 ML IVC SCH (10:40)
[2021-11-04] MEDS: ALPRAZolam 1 MG TABLET PO PRN ×2 (10:40→18:10)
[2021-11-04] MEDS: Budesonide/Formoterol 160/4.5 1 PUFF INH IH SCH (11:28)
[2021-11-04] MEDS: amLODIPine 5 MG TABLET PO SCH (12:29)
[2021-11-04] MEDS ORDERED: *HR* Warfarin 7.5 MG TABLET PO ONE (18:00)
[2021-11-04] MEDS ORDERED: Warfarin perPT PO PRN (18:00)
[2021-11-05 01:27] LABS: INR 1.3; Prothrombin Time 14.9 Seconds (9.4-12.1)
[2021-11-05 01:40] LABS: BUN/Creatinine Ratio 8 (6-26); Blood Urea Nitrogen 11 mg/dL (6-20); Carbon Dioxide 26 mEq/L (23-29); Chloride 106 mEq/L (98-107); Glucose 88 mg/dL (70-105); Magnesium 1.9 mg/dL (1.6-2.6); Osmolality,Calculated 287 (280-300); Phosphorous 3.3 mg/dL (2.7-4.5); Potassium 4.1 mEq/L (3.5-5.1); Sodium 139 mEq/L (136-145); eGFR For African Americans > 60 (> 60); eGFR For Non-African Americans 56 (> 60)
[2021-11-05] MEDS: Gabapentin 300 MG CAPSULE PO SCH ×4 (01:40→19:31)
[2021-11-05] MEDS: ALPRAZolam 1 MG TABLET PO PRN ×3 (04:07→22:41)
[2021-11-05] MEDS: Budesonide/Formoterol 160/4.5 1 PUFF INH IH SCH (07:45)
[2021-11-05] MEDS: Metoprolol XL (24 HR) Succ 25 MG TAB.ER.24H PO SCH (08:07)
[2021-11-05] MEDS: amLODIPine 5 MG TABLET PO SCH (08:07)
[2021-11-05] MEDS: levETIRAcetam 250 MG TABLET PO SCH ×2 (08:07→19:32)
[2021-11-05] MEDS: Cyanocobalamin (B-12) 1,000 MCG TABLET PO SCH (08:07)
[2021-11-05] MEDS: 0.9 % Sodium Chloride 1,000 ML IVC SCH ×4 (08:09→19:33)
[2021-11-05] MEDS ORDERED: *HR* Warfarin 5 MG TABLET PO ONE (18:00)
[2021-11-06] MEDS: Gabapentin 300 MG CAPSULE PO SCH ×2 (02:09→09:05)
[2021-11-06 05:36] LABS: BUN/Creatinine Ratio 10 (6-26); Blood Urea Nitrogen 13 mg/dL (6-20); Calcium 8.7 mg/dL (8.6-10.3); Carbon Dioxide 26 mEq/L (23-29); Chloride 109 mEq/L (98-107); Glucose 93 mg/dL (70-105); Osmolality,Calculated 292 (280-300); Phosphorous 3.3 mg/dL (2.7-4.5); Potassium 3.8 mEq/L (3.5-5.1); Sodium 141 mEq/L (136-145); eGFR For African Americans > 60 (> 60); eGFR For Non-African Americans 60 (> 60)
[2021-11-06 05:42] LABS: INR 1.7; Prothrombin Time 19.2 Seconds (9.4-12.1)
[2021-11-06 06:47] VITALS: TEMP 97.6
[2021-11-06] MEDS: Budesonide/Formoterol 160/4.5 1 PUFF INH IH SCH (07:59)
[2021-11-06] MEDS: ALPRAZolam 1 MG TABLET PO PRN (09:03)
[2021-11-06] MEDS: Metoprolol XL (24 HR) Succ 25 MG TAB.ER.24H PO SCH (09:03)
[2021-11-06] MEDS: Cyanocobalamin (B-12) 1,000 MCG TABLET PO SCH (09:04)
[2021-11-06] MEDS: amLODIPine 5 MG TABLET PO SCH (09:04)
[2021-11-06] MEDS: levETIRAcetam 250 MG TABLET PO SCH (09:05)
[2021-11-06 11:11] VITALS: BP 134/90; PULSE 83; O2SAT 97
[2021-11-06] MEDS ORDERED: *HR* Warfarin 5 MG TABLET PO ONE (18:00)
== END 2021-11-06 16:42 | disposition home or self-care (01) | DRG 683 ==
LOC: EMEROOARM 16:20 → 3BNU 16:20 → SUATTDRO 21:43 → 3BNU 22:23
PROVIDERS: ADMIT Internal Medicine; ATTEND Internal Medicine

== ENCOUNTER 2021-12-05 12:39 | Inpatient (IN) ==
[2021-12-05 13:59] LABS: Basophils # 0.1 K/mcL (0.0-0.2); Basophils % 0.8 %; Eosinophils # 0.2 K/mcL (0.0-0.6); Eosinophils % 2.6 %; Hematocrit 45.9 % (37.5-50.1); Hemoglobin 15.6 g/dL (12.9-16.9); Immature Granulocytes % 0.3 % (0-4); Lymphocytes # 2.7 K/mcL (0.6-4.6); Lymphocytes % 44.9 %; Mean Corpuscular Volume 94.3 fL (83.0-100.0); Mean Platelet Volume 9.1 fL (9.4-12.4); Monocytes # 0.6 K/mcL (0.0-1.3); Monocytes % 9.4 %; Neutrophils # 2.6 K/mcL (1.6-8.9); Platelet Count 271 K/mcL (140-400); Red Blood Count 4.87 M/mcL (4.19-5.50); Red Cell Distribution Width 13.4 % (11.5-14.5); White Blood Count 6.1 K/mcL (4.3-11.1)
[2021-12-05 14:17] LABS: Alanine Aminotransferase 9 Units/L (7-52); Albumin 4.7 g/dL (3.5-5.7); Albumin/Globulin Ratio 1.8 (1.1-2.2); Alkaline Phosphatase 67 Units/L (34-104); Aspartate Amino Transferase 9 Units/L (13-39); BUN/Creatinine Ratio 8 (6-26); Bilirubin,Direct 0.1 mg/dL (0.0-0.2); Bilirubin,Indirect 0.6 mg/dL (0.0-1.0); Bilirubin,Total 0.7 mg/dL (0.3-1.0); Blood Urea Nitrogen 12 mg/dL (6-20); Calcium 9.6 mg/dL (8.6-10.3); Carbon Dioxide 29 mEq/L (23-29); Chloride 102 mEq/L (98-107); Globulin 2.6 g/dL (2.4-3.5); Glucose 127 mg/dL (70-105); Osmolality,Calculated 287 (280-300); Potassium 3.8 mEq/L (3.5-5.1); Sodium 138 mEq/L (136-145); Total Protein 7.3 g/dL (6.4-8.9); Troponin I < 0.03 ng/mL (< 0.04); eGFR For African Americans 59 (> 60); eGFR For Non-African Americans 49 (> 60)
[2021-12-05 15:01] LABS: Bacteria,Urine Few per hpf (None-Few); Bilirubin,Urine Negative (Negative); Blood,Urine Negative (Negative); Clarity,Urine Clear (Clear); Color,Urine Light-Yellow (Yellow); Glucose,Urine (UA) Normal (Normal); Ketones,Urine Negative (Negative); Leukocyte Esterase,Urine Negative (Negative); Mucus,Urine Few per lpf (None-Few); Nitrite,Urine Negative (Negative); PH,Urine 6.5 pH Units (5.0-8.0); Protein,Urine 30 mg/dL (Neg-Trace); RBC,Urine 0-3 per hpf (0-3); Sperm,Urine Present per hpf (None Seen); Urobilinogen,Urine Normal (Normal); WBC,Urine 0-3 per hpf (0-3)
[2021-12-05 16:54] LABS: INR 1.6; Prothrombin Time 17.7 Seconds (9.4-12.1)
[2021-12-05] MEDS ORDERED: Tdap (Boostrix) Vaccine 0.5 ML SYRINGE IM ONE (17:53)
[2021-12-05] MEDS ORDERED: Aspirin 325 MG TABLET PO ONE (17:53)
[2021-12-05] MEDS ORDERED: *HR* HYDROcodone/Acet 5/325 mg TABLET PO ONE (17:53)
[2021-12-05] MEDS ORDERED: Naloxone 0.4 MG/ML INJ IVP PRN (18:13)
[2021-12-05] MEDS ORDERED: Ondansetron 4 MG/2 ML VIAL IVP PRN (18:13)
[2021-12-05] MEDS ORDERED: Perflutren Lipid Microsphere 1.3 ML in 0.9 % Sodium Chloride 8.7 ML IVP PRN (18:14)
[2021-12-05] MEDS: 0.9 % Sodium Chloride 1,000 ML IVC SCH (21:46)
[2021-12-05] MEDS ORDERED: *HR* LORazepam 2 MG/ML VIAL IVP ONE (23:27)
[2021-12-06 03:03] LABS: Basophils % 0.5 %; Eosinophils # 0.1 K/mcL (0.0-0.6); Eosinophils % 1.4 %; Hematocrit 43.8 % (37.5-50.1); Hemoglobin 14.9 g/dL (12.9-16.9); Immature Granulocytes % 0.4 % (0-4); Lymphocytes # 3.6 K/mcL (0.6-4.6); Lymphocytes % 41.8 %; Mean Corpuscular Hemoglobin 32.1 pg (28.0-33.3); Mean Corpuscular Volume 94.4 fL (83.0-100.0); Mean Platelet Volume 9.2 fL (9.4-12.4); Monocytes # 0.8 K/mcL (0.0-1.3); Monocytes % 9.2 %; Platelet Count 216 K/mcL (140-400); Red Blood Count 4.64 M/mcL (4.19-5.50); Red Cell Distribution Width 13.5 % (11.5-14.5); Segmented Neutrophils % 46.7 %; White Blood Count 8.5 K/mcL (4.3-11.1)
[2021-12-06 03:13] LABS: BUN/Creatinine Ratio 13 (6-26); Blood Urea Nitrogen 16 mg/dL (6-20); Calcium 9.1 mg/dL (8.6-10.3); Carbon Dioxide 30 mEq/L (23-29); Chloride 103 mEq/L (98-107); Glucose 135 mg/dL (70-105); Osmolality,Calculated 291 (280-300); Potassium 3.6 mEq/L (3.5-5.1); Sodium 139 mEq/L (136-145); eGFR For African Americans > 60 (> 60); eGFR For Non-African Americans 58 (> 60)
[2021-12-06] MEDS ORDERED: Regadenoson 0.4 MG/5 ML SYRINGE IVP ONE (07:27)
[2021-12-06] MEDS: *HR* Enoxaparin 100 MG/ML SYRINGE SQ SCH ×2 (10:31→17:30)
[2021-12-06] MEDS: 0.9 % Sodium Chloride 1,000 ML IVC SCH (10:31)
[2021-12-06] MEDS: amLODIPine 5 MG TABLET PO SCH (11:05)
[2021-12-06] MEDS: Metoprolol XL (24 HR) Succ 25 MG TAB.ER.24H PO SCH (11:05)
[2021-12-06 14:16] LABS: INR 1.7; Prothrombin Time 19.4 Seconds (9.4-12.1)
[2021-12-06] MEDS ORDERED: Furosemide 20 MG TABLET PO PRN (14:51)
[2021-12-06] MEDS: ALPRAZolam 1 MG TABLET PO SCH ×2 (15:36→20:40)
[2021-12-06] MEDS: Cyanocobalamin (B-12) 1,000 MCG TABLET PO SCH (15:36)
[2021-12-06] MEDS: Gabapentin 300 MG CAPSULE PO SCH ×2 (15:37→20:40)
[2021-12-06] MEDS ORDERED: *HR* Warfarin 5 MG TABLET PO ONE (18:00)
[2021-12-06] MEDS ORDERED: Warfarin perPT PO PRN (18:00)
[2021-12-06] MEDS: Budesonide/Formoterol 160/4.5 1 PUFF INH IH SCH (20:00)
[2021-12-06] MEDS: levETIRAcetam 250 MG TABLET PO SCH (20:40)
[2021-12-07 02:11] LABS: INR 1.8; Prothrombin Time 20.4 Seconds (9.4-12.1)
[2021-12-07 02:22] LABS: BUN/Creatinine Ratio 14 (6-26); Blood Urea Nitrogen 13 mg/dL (6-20); Calcium 8.7 mg/dL (8.6-10.3); Carbon Dioxide 23 mEq/L (23-29); Chloride 108 mEq/L (98-107); Glucose 84 mg/dL (70-105); Osmolality,Calculated 289 (280-300); Potassium 3.6 mEq/L (3.5-5.1); Sodium 140 mEq/L (136-145); eGFR For African Americans > 60 (> 60); eGFR For Non-African Americans > 60 (> 60)
[2021-12-07] MEDS: *HR* Enoxaparin 100 MG/ML SYRINGE SQ SCH ×2 (06:30→16:43)
[2021-12-07] MEDS: Budesonide/Formoterol 160/4.5 1 PUFF INH IH SCH ×2 (07:37→22:15)
[2021-12-07] MEDS: levETIRAcetam 250 MG TABLET PO SCH ×2 (09:31→20:55)
[2021-12-07] MEDS: amLODIPine 5 MG TABLET PO SCH (09:32)
[2021-12-07] MEDS: Metoprolol XL (24 HR) Succ 25 MG TAB.ER.24H PO SCH (09:32)
[2021-12-07] MEDS: ALPRAZolam 1 MG TABLET PO SCH ×3 (09:32→20:56)
[2021-12-07] MEDS: Cyanocobalamin (B-12) 1,000 MCG TABLET PO SCH (09:32)
[2021-12-07] MEDS: Gabapentin 300 MG CAPSULE PO SCH ×4 (09:32→20:55)
[2021-12-07] MEDS ORDERED: Ketorolac 30 MG/ML VIAL IVP ONE (15:01)
[2021-12-07] MEDS ORDERED: *HR* Warfarin 5 MG TABLET PO ONE (18:00)
[2021-12-08] MEDS: *HR* Enoxaparin 100 MG/ML SYRINGE SQ SCH ×2 (05:42→16:59)
[2021-12-08 06:32] LABS: INR 1.7; Prothrombin Time 19.1 Seconds (9.4-12.1)
[2021-12-08] MEDS: Budesonide/Formoterol 160/4.5 1 PUFF INH IH SCH ×2 (07:48→20:03)
[2021-12-08] MEDS: Gabapentin 300 MG CAPSULE PO SCH ×4 (08:03→21:21)
[2021-12-08] MEDS: ALPRAZolam 1 MG TABLET PO SCH ×3 (08:03→21:21)
[2021-12-08] MEDS: Cyanocobalamin (B-12) 1,000 MCG TABLET PO SCH (08:03)
[2021-12-08] MEDS: Metoprolol XL (24 HR) Succ 25 MG TAB.ER.24H PO SCH (08:03)
[2021-12-08] MEDS: levETIRAcetam 250 MG TABLET PO SCH ×2 (08:04→21:22)
[2021-12-08] MEDS: amLODIPine 5 MG TABLET PO SCH (08:04)
[2021-12-08] MEDS: *HR* HYDROcodone/Acet 5/325 mg TABLET PO PRN ×2 (17:03→23:03)
[2021-12-08] MEDS ORDERED: *HR* Warfarin 5 MG TABLET PO ONE (18:00)
[2021-12-09 02:26] LABS: Prothrombin Time 21.7 Seconds (9.4-12.1)
[2021-12-09] MEDS: *HR* Enoxaparin 100 MG/ML SYRINGE SQ SCH (05:42)
[2021-12-09] MEDS: Budesonide/Formoterol 160/4.5 1 PUFF INH IH SCH (07:28)
[2021-12-09] MEDS: Gabapentin 300 MG CAPSULE PO SCH (07:59)
[2021-12-09] MEDS: levETIRAcetam 250 MG TABLET PO SCH (07:59)
[2021-12-09] MEDS: ALPRAZolam 1 MG TABLET PO SCH (08:00)
[2021-12-09] MEDS: Metoprolol XL (24 HR) Succ 25 MG TAB.ER.24H PO SCH (08:00)
[2021-12-09] MEDS: amLODIPine 5 MG TABLET PO SCH (08:00)
[2021-12-09] MEDS: Cyanocobalamin (B-12) 1,000 MCG TABLET PO SCH (08:00)
[2021-12-09] MEDS: *HR* HYDROcodone/Acet 5/325 mg TABLET PO PRN (08:05)
[2021-12-09 11:00] VITALS: BP 123/72; PULSE 70; TEMP 97.8; O2SAT 96
[2021-12-09] MEDS ORDERED: *HR* Warfarin 5 MG TABLET PO ONE (18:00)
== END 2021-12-09 13:48 | disposition other institution (70) | DRG 684 ==
LOC: 3BNU 12:39 → EMEROOARM 12:39 → SUATTDRO 18:16 → 3BNU 20:20 → SUATTDRO 12-06 16:14
PROVIDERS: ADMIT Pharmacist; ATTEND Registered Nurse